=== PATIENT | female | born 1985 | race American Indian/Alaskan Native ===

== ENCOUNTER 2017-06-20 16:28 | Observation (INO) | payer MEDICAID, OTHER ==
[2017-06-20 18:37] VITALS: BP 112/72
--- NOTE | 2017-06-20 19:36 | PCM.LDHP ---
L&D History of Present Illness - General Date of Service: 06/20/17 Admit Problem/Dx: Admission Diagnosis/Problem Admission Diagnosis/Problem Back pain during in second trimester Source of Information: Patient History Limitations: Reports: No Limitations - History of Present Illness Introduction:: This 31 year old AB2 with one vaginal delivery and two C sections. Who is 16 3/7 weeks based on ultrasound tonight. SANJUANA 11/30/17 presented for vaginal bleeding. She states she was soaking a pad an hour. FHT 171 FH 20. Blood with speculum exam. 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: , 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 : 6 Para: 3 LMP (Approximate): (SANJUANA 11 30 17) - Past Surgical History GI Surgical History: Reports: Cholecystectomy Female Surgical History: Reports: Section Social & Family History - Tobacco Use Smoking Status *Q: Current Every Day Smoker Tobacco Use Within Last Twelve Months: Cigarettes Years of Tobacco use: 10 Packs/Tins Daily: 1 Used Tobacco, but Quit: No Smoking Cessation Information Provided To Patient: Patient Refused Second Hand Smoke Exposure: Yes - Caffeine Use Caffeine Use: Reports: None - Alcohol Use Days Per Week of Alcohol Use: 0 - Recreational Drug Use Recreational Drug Use: Yes Drug Use in Last 12 Months: Yes Recreational Drug Type: Reports: Amphetamines (Speed), Codiene, Marijuana/ Hashish, Methamphetamine, Oxycodone H&P Review of Systems - Review of Systems: Review Of Systems: See Below General: Reports: No Symptoms HEENT: Reports: No Symptoms Pulmonary: Reports: No Symptoms Cardiovascular: Reports: No Symptoms Gastrointestinal: Reports: No Symptoms Genitourinary: Reports: No Symptoms Musculoskeletal: Reports: Back Pain Skin: Reports: No Symptoms Psychiatric: Reports: No Symptoms Neurological: Reports: No Symptoms Hematologic/Lymphatic: Reports: No Symptoms Immunologic: Reports: No Symptoms L&D Exam - Exam Exam: See Below - Vital Signs Vital Signs: Last Vital Signs Temp 99.2 F 06/20/17 18:35 Pulse 84 06/20/17 18:35 Resp 18 06/20/17 18:35 BP 112/72 06/20/17 18:35 Pulse Ox 99 06/20/17 18:35 Weight: 159 lb - OB Specific Heart Tones: Present Heart Tones per Min: 171 - Underwood Score Underwood Score Cervix Position: Posterior Underwood Score Consistency: Firm Underwood Score Effacement: 0-30% Underwood Score Dilation: Closed Underwood Score 's Station: -3 Underwood Score Total: 0 - Exam General: Alert, Oriented HEENT: PERRLA, Conjunctiva Clear Neck: Supple Lungs: Normal Respiratory Effort Cardiovascular: Regular Rhythm GI/Abdominal Exam: Soft Genitourinary: Enlarged uterus, Vaginal bleeding Back Exam: Full Range of Motion Extremities: Normal Inspection, No Pedal Edema Skin: Warm Neurological: Cranial Nerves Intact Psychiatric: Alert - Patient Data Lab Results Last 24 hrs: Laboratory Results - last 24 hr 06/20/17 06/20/17 06/20/17 Range/Units 16:44 17:27 17:27 WBC 9.6 (4.5-11.0) K/uL RBC 4.49 (3.30-5.50) M/uL Hgb 8.9 L D (12.0-15.0) g/dL Hct 29.3 L (36.0-48.0) % MCV 65 L (80-98) fL MCH 20 L (27-31) pg MCHC 30 L (32-36) % Plt Count 276 (150-400) K/uL Neut % (Auto) 64 (36-66) % Lymph % (Auto) 29 (24-44) % Esmeralda % (Auto) 7 H (2-6) % Eos % (Auto) 1 L (2-4) % Baso % (Auto) 0 (0-1) % HCG, Quant 26509 H (0-6) mIU/mL Urine Color Yellow Urine Appearance Clear Urine pH 6.0 (4.5-8.0) Ur Specific Wisner 1.020 (1.008-1.030) Urine Protein Negative (NEGATIVE) mg/dL Urine Glucose (UA) Normal (NEGATIVE) mg/dL Urine Ketones Negative (NEGATIVE) mg/dL Urine Occult Blood Moderate (NEGATIVE) Urine Nitrite Negative (NEGATIVE) Urine Bilirubin Negative (NEGATIVE) Urine Urobilinogen Normal (NORMAL) mg/dL Ur Leukocyte Esterase Negative (NEGATIVE) Urine RBC 5-10 H (0-5) Urine WBC 0-5 (0-5) Ur Epithelial Cells Few Amorphous Sediment Few Urine Bacteria Rare Urine Mucus Moderate Urine Opiates Screen (NEGATIVE) Ur Oxycodone Screen (NEGATIVE) Urine Methadone Screen (NEGATIVE) Ur Propoxyphene Screen (NEGATIVE) Ur Barbiturates Screen (NEGATIVE) Ur Tricyclics Screen (NEGATIVE) Ur Phencyclidine Scrn (NEGATIVE) Ur Amphetamine Screen (NEGATIVE) U Methamphetamines Scrn (NEGATIVE) Urine MDMA Screen (NEGATIVE) U Benzodiazepines Scrn (NEGATIVE) U Cocaine Metab Screen (NEGATIVE) U Marijuana (THC) Screen (NEGATIVE) 06/20/17 Range/Units 18:04 WBC (4.5-11.0) K/uL RBC (3.30-5.50) M/uL Hgb (12.0-15.0) g/dL Hct (36.0-48.0) % MCV (80-98) fL MCH (27-31) pg MCHC (32-36) % Plt Count (150-400) K/uL Neut % (Auto) (36-66) % Lymph % (Auto) (24-44) % Esmeralda % (Auto) (2-6) % Eos % (Auto) (2-4) % Baso % (Auto) (0-1) % HCG, Quant (0-6) mIU/mL Urine Color Urine Appearance Urine pH (4.5-8.0) Ur Specific Wisner (1.008-1.030) Urine Protein (NEGATIVE) mg/dL Urine Glucose (UA) (NEGATIVE) mg/dL Urine Ketones (NEGATIVE) mg/dL Urine Occult Blood (NEGATIVE) Urine Nitrite (NEGATIVE) Urine Bilirubin (NEGATIVE) Urine Urobilinogen (NORMAL) mg/dL Ur Leukocyte Esterase (NEGATIVE) Urine RBC (0-5) Urine WBC (0-5) Ur Epithelial Cells Amorphous Sediment Urine Bacteria Urine Mucus Urine Opiates Screen Positive H (NEGATIVE) Ur Oxycodone Screen Positive H (NEGATIVE) Urine Methadone Screen Negative (NEGATIVE) Ur Propoxyphene Screen Negative (NEGATIVE) Ur Barbiturates Screen Negative (NEGATIVE) Ur Tricyclics Screen Negative (NEGATIVE) Ur Phencyclidine Scrn Negative (NEGATIVE) Ur Amphetamine Screen Positive H (NEGATIVE) U Methamphetamines Scrn Positive H (NEGATIVE) Urine MDMA Screen Negative (NEGATIVE) U Benzodiazepines Scrn Negative (NEGATIVE) U Cocaine Metab Screen Negative (NEGATIVE) U Marijuana (THC) Screen Positive H (NEGATIVE) Result Diagrams: 06/20/17 17:27 - Problem List (1) Drug abuse during SNOMED Code(s): 048923444 ICD Code: O99.320 - DRUG USE COMPLICATING , UNSPECIFIED TRIMESTER; F19.10 - OTHER PSYCHOACTIVE SUBSTANCE ABUSE, UNCOMPLICATED Status: Acute Current Visit: Yes (2) Placenta abruptio, antepartum SNOMED Code(s): 729946190 ICD Code: O45.90 - PREMATURE SEPARATION OF PLACENTA, UNSP, UNSP TRIMESTER Status: Acute Current Visit: Yes (3) Anemia affecting in second trimester SNOMED Code(s): 97343073 ICD Code: O99.012 - ANEMIA COMPLICATING , SECOND TRIMESTER Status : Acute Current Visit: Yes (4) Threatened in second trimester SNOMED Code(s): 79529369 ICD Code: O20.0 - THREATENED Status: Acute Current Visit: Yes (5) SNOMED Code(s): 12685887 ICD Code: Z34.90 - ENCNTR FOR SUPRVSN OF NORMAL , UNSP, UNSP TRIMESTER Status: Acute Current Visit: Yes Qualifiers: Weeks of gestation: 16 weeks Qualified Code(s): Z3A.16 - 16 weeks gestation of Problem List Initiated/Reviewed/Updated: Yes Orders Last 24hrs: Active Orders 24 hr Category Date Time Status OB 2 Or 3 Tri Sgl 1st Gest [US] Routine Exams 06/20/17 17:24 Ordered CHLAMYDIA,AND GC BY APTIMA Routine Lab 06/20/17 18:47 Received HEPATITIS B SURFACE ANTIGEN [REF] Routine Lab 06/20/17 18:08 Received HEPATITIS C ANTIBODY [REF] Routine Lab 06/20/17 18:08 Received RPR-TREP PALLIDIUM AB,REFLEX [REF] Routine Lab 06/20/17 18:08 Received RUBELLA,ANTIBODY IGG [REF] Routine Lab 06/20/17 18:08 Received TYPE AND SCREEN [BBK] Routine Lab 06/20/17 17:27 Ordered Assessment/Plan Comment:: 31 yr old with placental hematoma on ultrasound with bleeding into the cervical OS. Threatened miscarriage with high risk for bleeding, Anemia HGB 8.9 No care, will try to set up an appointment for her. Smoker, offered patches she declined. Plan was to keep her overnight and monitor for increased symptoms. She refused to stay and not smoke. Is going to leave AMA despite our attempts to encourage her to stay.
== END 2017-06-20 19:30 | disposition left against medical advice (07) ==
LOC: JP.OBCHECK 16:28 → JP.OB 19:10
PROVIDERS: ADMIT Nurse Practitioner Family; ATTEND Nurse Practitioner Family
DX: O45.92 Premature separation of placenta, unspecified, second trimester (principal); O20.0 Threatened abortion; O26.892 Other specified pregnancy related conditions, second trimester; M54.5 Low back pain; O99.332 Smoking (tobacco) complicating pregnancy, second trimester; F17.210 Nicotine dependence, cigarettes, uncomplicated; O99.322 Drug use complicating pregnancy, second trimester; O99.012 Anemia complicating pregnancy, second trimester; O32.1XX0 Maternal care for breech presentation, not applicable or unspecified; O24.419 Gestational diabetes mellitus in pregnancy, unspecified control; Z53.21 Procedure and treatment not carried out due to patient leaving prior to being seen by health care provider; Z3A.16 16 weeks gestation of pregnancy; Z87.19 Personal history of other diseases of the digestive system; Z79.899 Other long term (current) drug therapy; Z90.49 Acquired absence of other specified parts of digestive tract
CPT/HCPCS: 36415; 76805; 80305; 81001; 84702; 85025; 86762; 86780; 86803; 86850; 86900; 86901; 87340; 87491; 87591; 99211

== ENCOUNTER 2018-08-13 14:41 | Emergency (ER) | payer SELFPAY ==
[2018-08-13 14:45] VITALS: BP 134/88
--- NOTE | 2018-08-13 15:21 | EDM.PDOCBH ---
<Kourtney Gilbert M - Last Filed: 08/14/18 11:13> ED HPI GENERAL MEDICAL PROBLEM - General Chief Complaint: Behavioral/Psych Stated Complaint: SUICIDAL VIA [facility]TH Time Seen by Provider: 08/13/18 15:05 Source of Information: Reports: Patient History Limitations: Reports: No Limitations - History of Present Illness INITIAL COMMENTS - FREE TEXT/NARRATIVE: Sanam was brought in by police and EMS after being called to home by father of patient who received text stating she was saying goodbye as she going to hurt herself. Upon arrival, father found patient in bathroom with bottle of pills in hand. When police tried to restrain patient, she had an outburst and struck out and hit the wall injuring her hand. She presented to the ED handcuffed to the cart. Interviewed by senior staff consultant and ED providers. Patient cooperative to the point of eliminating restraints for treatment - as states "I just didn't want the police touching me, you guys are OK." Onset: Today Location: Reports: Lower Extremity, Right (complains of pain along ulnar region near wrist and 5th metacarpal) - Related Data Allergies Allergy/AdvReac Type Severity Reaction Status Date / Time No Known Allergies Allergy Verified 08/13/18 14:46 Home Meds: Home Meds NK [No Known Home Meds] 08/13/18 [History] Past Medical History - Past Health History Medical/Surgical History: Denies Medical/Surgical History Gastrointestinal History: Reports: Cholelithiasis 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: , 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 - Past Surgical History GI Surgical History: Reports: Cholecystectomy Female Surgical History: Reports: Section Social & Family History - Tobacco Use Smoking Status *Q: Current Every Day Smoker Years of Tobacco use: 15 Packs/Tins Daily: 1 - Caffeine Use Caffeine Use: Reports: None - Recreational Drug Use Recreational Drug Use: Yes Drug Use in Last 12 Months: Yes Recreational Drug Type: Reports: Methamphetamine ED EXAM, BEHAVIORAL HEALTH - Physical Exam Exam: See Below General Appearance: Alert, WD/WN, No Apparent Distress (sitting in cart, very compliant and willing to discuss history) Ears: Hearing Grossly Normal Respiratory/Chest: No Respiratory Distress Psychiatric: Alert, Normal Affect, Normal Cognition, Oriented, Tearful (Admits writing text to father stating 'I want to end it my own way'. Father alerted police and went to house to find patient in room with bag of pills in hand. Denies taking any; stated they were Motrin she was going to take for headache, but she did not taking any. ) Skin Exam: Warm, Dry, Intact, Normal color, No rash Comments: During course of time in ED, every verbal encounter with patient proved she was lucid, appropriate and had no desires to hurt herself. She stated she was deperate feeling after meth use at the thought of her children being adopted out. She states she doesn't have a lot of friends to talk to about this. Reviewed support system and determined patient feels closest to father. She will reach out to father for ongoing support. I feel this patient is not a threat to self or others if can utilize her support system. She will have a conversation with her father today after discharge. Patient was given food tray and nicotine patch during ED stay. COURSE, BEHAVIORAL HEALTH COMP - Course Vital Signs: Last Vital Signs Temp 35.7 C 08/13/18 14:55 Pulse 89 08/13/18 14:55 Resp 22 H 08/13/18 14:55 BP 134/88 08/13/18 14:55 Pulse Ox 98 08/13/18 14:55 Orders, Labs, Meds: Active Orders 24 hr Category Date Time Status Smoking Cessation Education [RC] DAILY Care 08/13/18 15:28 Active Medications Discontinued Medications Generic Name Dose Route Start Last Admin Trade Name Alexei PRN Reason Stop Dose Admin Nicotine 21 mg 08/13/18 15:28 08/13/18 15:45 Habitrol TRDERM 08/13/18 15:29 21 mg ONETIME ONE Administration Discharge vs Psych Eval/Treatment:: 08/13/18 15:33 Long discussion with patient about her text to her father. [place] yesterday that her children would be adopted out, when she thought she might regain custody. This sent her into a big depression and she admits to using smoking meth "a quad ". She admits to sending her father a text "saying goodbye". When father showed up at her house she said she did have meds in a baggie but she was wanting to take them for a headache. She states she did not take anything. She became agitated when the police/EMS touched her and she punched a wall out of frustration. Presently she denies wanting to hurt self. She asks for a meal tray. She is waiting for x-ray for wrist and hand films. Nicoderm patch ordered. Departure - Departure Disposition: Home, Self-Care 01 Clinical Impression: Wrist pain, left - Discharge Information Instructions: Wrist Pain, Adult, [id number] Referrals: PCP,None [Primary Care Provider] - Forms: ED Department Discharge Additional Instructions: Please follow up with the orthopedic clinic for persistent pain. Return to the ER if you feel dangerous to yourself or others <Adrián Darden - Last Filed: 08/14/18 11:56> ED ROS GENERAL - Review of Systems Review Of Systems: See Below COURSE, BEHAVIORAL HEALTH COMP - Course Re-Assessment/Re-Exam: Patient seen with student CR Gilbert. Presents with R hand pain after striking wall. She reportedly had SI, currently denies this or any ingestions, reports it was a reaction to receiving distressing news. There is distal wrist pain on exam and questionable fracture here on plain film , we have placed here in split and she will follow up with orthopedics She is no longer danger to self or others. Has support system, father will warehouse picker from ED. Discharged Departure - Departure Time of Disposition: 17:35
[2018-08-13] MEDS ORDERED: Nicotine 21 MG/24 Hr Patch TRDERM ONE (15:28)
--- NOTE | 2018-08-13 16:37 | CRLCR ---
HISTORY: Pain after injury. FINDINGS: Two views of the hands are provided. On the lateral view there is a slight curvilinear focus of bone or mineralized material seen along the dorsum of the distal wrist region. This is of uncertain significance. If there is point tenderness in this region there could be a subtle chip type fracture. This does not occur in the region of the navicular bone. Otherwise there is no evidence for fracture elsewhere. No findings for dislocation or arthritic change. IMPRESSION: Question of small chip fracture off the dorsum of the wrist versus artifact or normal variation. Please correlate with point tenderness in this region. No navicular fracture is noted. Dictated by Reno Greer MD @ Aug 13 2018 4:32PM Signed by Dr. Reno Greer @ Aug 13 2018 4:35PM
--- NOTE | 2018-08-13 16:39 | CRLCR ---
HISTORY: Smiled box tenderness after punching wall. FINDINGS: Three views of the right wrist are provided. No definite findings for fracture, dislocation or arthritic change. Dictated by Reno Greer MD @ Aug 13 2018 4:36PM Signed by Dr. Reno Greer @ Aug 13 2018 4:37PM
== END 2018-08-13 18:09 | disposition home or self-care (01) ==
LOC: JP.ED 14:41
DX: M25.531 Pain in right wrist (principal); M79.641 Pain in right hand; W22.8XXA Striking against or struck by other objects, initial encounter
CPT/HCPCS: 73110; 73120; 99285; A9270

== ENCOUNTER 2019-01-16 21:52 | Emergency (ER) | payer MEDICAID ==
[2019-01-16 22:11] VITALS: BP 145/82
--- NOTE | 2019-01-16 22:51 | EDM.PDOC ---
ED HPI GENERAL MEDICAL PROBLEM - General Chief Complaint: ENT Problem Stated Complaint: BAD TEETH Time Seen by Provider: 01/16/19 22:27 Source of Information: Reports: Patient History Limitations: Reports: No Limitations - History of Present Illness INITIAL COMMENTS - FREE TEXT/NARRATIVE: 33-year-old female with a history of multiple dental caries presents to the emergency department with facial swelling and discomfort. She has seen a dentist and treatment was outlined however treatment was interrupted because this patient's mother's recently. She has had swelling for the past day. Is quite painful. She denies systemic symptoms such as fever. She has difficulty eating because of pain but has no difficulty swallowing. She is not immunocompromised. 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 Psychiatric History: Reports: Anxiety, Depression - Past Surgical History GI Surgical History: Reports: Cholecystectomy Female Surgical History: Reports: Section Social & Family History - Family History Family Medical History: Noncontributory - Tobacco Use Smoking Status *Q: Current Every Day Smoker Years of Tobacco use: 12 Packs/Tins Daily: 0.5 Used Tobacco, but Quit: No - Caffeine Use Caffeine Use: Reports: None - Recreational Drug Use Recreational Drug Use: No ED ROS ENT - Review of Systems Review Of Systems: See Below Constitutional: Denies: Fever, Chills, Diaphoresis HEENT: Reports: Dental Pain, Other (right facial swelling) Respiratory: Reports: No Symptoms Cardiovascular: Reports: No Symptoms GI/Abdominal: Denies: Nausea, Vomiting ED EXAM, ENT - Physical Exam Exam: See Below Exam Limited By: No Limitations General Appearance: Alert, WD/WN, No Apparent Distress Mouth/Throat: Other (there is swelling over the right malar area. It is mildly red. Palpation of the oropharynx is unremarkable other than multiple dental caries and tooth avulsion. ) Neck: Normal Inspection. No: Lymphadenopathy (R), Lymphadenopathy (L) Respiratory/Chest: No Respiratory Distress, Lungs Clear Course - Vital Signs Last Recorded V/S: Last Vital Signs Temp 36.6 C 01/16/19 22:24 Pulse 81 01/16/19 22:24 Resp 16 01/16/19 22:24 BP 145/82 H 01/16/19 22:24 Pulse Ox 99 01/16/19 22:24 - Re-Assessments/Exams Free Text/Narrative Re-Assessment/Exam: 01/16/19 22:59 the patient was assessed. She has a obvious abscess with the swelling over the right side of the face and multiple dental problems. She is placed on amoxicillin 500 mg 3 times a day 10 days and given 4 tablets of [place] 5/325 mg one or 2 tablets every 6 hours as needed.She will contact her dentist tomorrow. Return here as needed. Departure - Departure Time of Disposition: 22:50 Disposition: Home, Self-Care 01 Condition: Good Clinical Impression: Abscess, Dental abscess - Discharge Information Instructions: Dental Abscess Referrals: PCP,None [Primary Care Provider] - Forms: ED Department Discharge Additional Instructions: Follow up with your dentist tomorrow.
== END 2019-01-16 23:24 | disposition home or self-care (01) ==
LOC: JP.ED 21:52
DX: K04.7 Periapical abscess without sinus (principal); K02.9 Dental caries, unspecified; F17.210 Nicotine dependence, cigarettes, uncomplicated
CPT/HCPCS: 99282

== ENCOUNTER 2019-04-28 07:27 | Inpatient (IN) | payer MEDICAID ==
[2019-04-28] MEDS ORDERED: Lactated Ringers 1,000 ML IV ONE (08:16)
[2019-04-28] MEDS ORDERED: Lactated Ringers 1,000 ML IV SCH (09:30)
--- NOTE | 2019-04-28 10:03 | CRLUS ---
INDICATION: Limited care COMPARISON: none TECHNIQUE: Real time flores scale imaging of the fetus was performed. Without non-stress testing. FINDINGS: Sonographic imaging demonstrates a single living intrauterine gestation. Fetus demonstrates a regular cardiac rate of 170 beats per minute. Fetus has a cephalic orientation. The amniotic fluid volume appears normal and there is a four-quadrant fluid volume index measurement of 11.7 cm. The fetus was active and demonstrated normal breathing movements. There was normal flexion and extension of the trunk and extremities. IMPRESSION: Biophysical profile score of 8 out of 8. Dictated by Eric Lanza MD @ 04/28/2019 10:01:45 AM Dictated by: Eric Lanza MD @ 04/28/2019 10:01:53 (Electronically Signed)
--- NOTE | 2019-04-28 10:08 | CRLUS ---
INDICATION: Limited care. COMPARISON: none TECHNIQUE: 2D flores scale imaging of the fetus was performed. FINDINGS: Sonographic imaging demonstrates a single living intrauterine gestation. Fetus demonstrates a regular cardiac rate of 170 beats per minute. Fetus has a cephalic orientation and longitudinal lie. The placenta lies in a fundal location without evidence of placenta previa. Amniotic fluid volume appears normal with a 4 quadrant fluid volume index measurement of 11.7 cm. The cervix is closed and measures 3.8 cm in length. The composite ultrasound gestational age is calculated at 35 weeks 4 days with an estimated sonographic due date of 05/29/2019. The estimated weight is 2673 grams which lies at the 60th %. The following biometric measurements were obtained: Biparietal diameter: 8.8 cm/35 weeks 4 days Head circumference: 31.5 cm/35 weeks 3 days Abdominal circumference: 31.6 cm/35 weeks 4 days Femur length: 6.9 cm/35 weeks 2 days The HC/AC ratio measures: 1.00 range (0.93-1.11) Given the low lying position of the head there is inadequate visualization of the intracranial contents. The nose, mouth and lips appear normal on coronal images. On the midline sagittal facial profile view the nasal bones and hard palate appear normal. The cervical, thoracic and lumbar spine appear normal. There is a normal four-chamber heart view. The left and right ventricular outflow tracts appear normal. The diaphragm and stomach appear normal. The kidneys appear normal. There is a normal three-vessel cord. The and placental cord insertion sites appear normal. The bladder appears normal. The four extremities appear normal. IMPRESSION: Sonographic gestational age calculated at 35 weeks 4 days with estimated due date of 05/29/2019 No intrinsic abnormalities noted on anatomic survey. Dictated by Eric Lanza MD @ 04/28/2019 10:07:13 AM Dictated by: Eric Lanza MD @ 04/28/2019 10:07:21 (Electronically Signed)
[2019-04-28] MEDS ORDERED: Sodium Chloride 0.9% 10 ML Syringe FLUSH PRN (11:07)
[2019-04-28] MEDS ORDERED: Oxytocin 10 Units/1 ML SDV ONE ×2 (11:07→12:10)
[2019-04-28] MEDS ORDERED: cefOXitin 1 GM Vial ONE (11:07)
--- NOTE | 2019-04-28 11:17 | PCM.LDHP ---
L&D History of Present Illness - General Date of Service: 04/28/19 Admit Problem/Dx: Patient Status Order with Admit Dx/Problem 04/28/19 11:07 Patient Status [ADT] Routine Admission Diagnosis/Problem Admission Diagnosis/Problem - Related Data Allergies/Adverse Reactions: Allergies Allergy/AdvReac Type Severity Reaction Status Date / Time No Known Allergies Allergy Verified 01/16/19 22:25 Home Medications: Home Meds Iron,Carbonyl/Vit C/Vit B12/Fa [Iron 100 Plus Tablet] 1 tab PO TID 01/16/19 [ History] Past Medical History - Past Health History Medical/Surgical History: Denies Medical/Surgical History HEENT History: Reports: None Cardiovascular History: Reports: None Respiratory History: Reports: None Gastrointestinal History: Reports: Cholelithiasis Genitourinary History: Reports: None 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: , 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 Musculoskeletal History: Reports: None Neurological History: Reports: None Psychiatric History: Reports: Anxiety, Depression Endocrine/Metabolic History: Reports: None Hematologic History: Reports: None Immunologic History: Reports: None Oncologic (Cancer) History: Reports: None Dermatologic History: Reports: None - Infectious Disease History Infectious Disease History: Reports: None - Past Surgical History Head Surgeries/Procedures: Reports: None HEENT Surgical History: Reports: None Cardiovascular Surgical History: Reports: None Respiratory Surgical History: Reports: None GI Surgical History: Reports: Cholecystectomy Female Surgical History: Reports: Section Endocrine Surgical History: Reports: None Neurological Surgical History: Reports: None Musculoskeletal Surgical History: Reports: None Oncologic Surgical History: Reports: None Dermatological Surgical History: Reports: None Social & Family History - Family History Family Medical History: Noncontributory - Tobacco Use Smoking Status *Q: Current Every Day Smoker Years of Tobacco use: 14 Packs/Tins Daily: 1 - Caffeine Use Caffeine Use: Reports: Soda - Recreational Drug Use Recreational Drug Use: Yes Drug Use in Last 12 Months: Yes Recreational Drug Type: Reports: Marijuana/Hashish Recreational Drug Use Frequency: Socially H&P Review of Systems - Review of Systems: Review Of Systems: See Below General: Reports: No Symptoms HEENT: Reports: No Symptoms Pulmonary: Reports: No Symptoms Cardiovascular: Reports: No Symptoms Gastrointestinal: Reports: No Symptoms Genitourinary: Reports: No Symptoms Musculoskeletal: Reports: No Symptoms Skin: Reports: No Symptoms Psychiatric: Reports: No Symptoms Neurological: Reports: No Symptoms Hematologic/Lymphatic: Reports: No Symptoms Immunologic: Reports: No Symptoms L&D Exam - Exam Exam: See Below - Vital Signs Vital Signs: Last Vital Signs Temp 36.5 C 04/28/19 07:37 Pulse 85 04/28/19 10:00 Resp 16 04/28/19 10:00 BP 135/91 H 04/28/19 10:57 Pulse Ox 95 04/28/19 10:00 - OB Specific Contraction Duration (sec): 30-80 Contraction Frequency (min): 2-7 Contraction Intensity: Mild Movement: Active Heart Tones: Present Heart Rate (FHR) Variability: Moderate (6-25 bmp) Presentation: Vertex - Underwood Score Underwood Score Cervix Position: Midposition Underwood Score Consistency: Soft [place] Score Effacement: 51-70% Underwood Score Dilation: 1-2 cm Underwood Score Infant's Station: -1 ,0 Underwood Score Total: 8 - Exam General: Alert, Oriented HEENT: PERRLA, Conjunctiva Clear, EACs Clear, EOMI, Hearing Intact, Mucosa Moist & [place], Nares Patent, Normal Nasal Septum, Posterior Pharynx Clear, TMs Clear Neck: Supple, Trachea Midline Lungs: Clear to Auscultation, Normal Respiratory Effort Cardiovascular: Regular Rate, Regular Rhythm GI/Abdominal Exam: Normal Bowel Sounds, Soft, Non-Tender, No Organomegaly, No Distention, No Abnormal Bruit, No Mass, Pelvis Stable Rectal Exam: Normal Exam, Normal Rectal Tone Genitourinary: Normal external exam, Normal bimanual exam, Normal speculum exam Back Exam: Normal Inspection, Full Range of Motion Extremities: Normal Inspection, Normal Range of Motion, Non-Tender, No Pedal Edema, Normal Capillary Refill Skin: Warm, Dry, Intact Neurological: Cranial Nerves Intact, Reflexes Equal Bilateral, Hyperreflexia DTR: 3+: Patella (L), Patella (R) Psychiatric: Alert, Normal Affect, Normal Mood - Patient Data Lab Results Last 24 hrs: Laboratory Results - last 24 hr 04/28/19 04/28/19 04/28/19 Range/Units 07:32 08:37 08:47 WBC (4.5-11.0) K/uL RBC (3.30-5.50) M/uL Hgb (12.0-15.0) g/dL Hct (36.0-48.0) % MCV (80-98) fL MCH (27-31) pg MCHC (32-36) % Plt Count (150-400) K/uL Neut % (Auto) (36-66) % Lymph % (Auto) (24-44) % [place] % (Auto) (2-6) % Eos % (Auto) (2-4) % Baso % (Auto) (0-1) % Sodium (140-148) mmol/L Potassium (3.6-5.2) mmol/L Chloride (100-108) mmol/L Carbon Dioxide (21-32) mmol/L Anion Gap (5.0-14.0) mmol/L BUN (7-18) mg/dL Creatinine (0.6-1.0) mg/dL Est Cr Clr Drug Dosing Estimated GFR (MDRD) (>60) Glucose (74-106) mg/dL Uric Acid 4.7 (2.6-6.2) mg/dL Calcium (8.5-10.1) mg/dL Total Bilirubin (0.2-1.0) mg/dL AST (15-37) U/L ALT (12-78) U/L Alkaline Phosphatase (46-116) U/L Lactate Dehydrogenase (82-234) U/L Total Protein (6.4-8.2) g/dL Albumin (3.4-5.0) g/dL Globulin (2.3-3.5) g/dL Albumin/Globulin Ratio (1.2-2.2) Urine Color Yellow (YELLOW) Urine Appearance Slightly cloudy A (CLEAR) Urine pH 6.0 (5.0-8.0) Ur Specific [place] 1.015 (1.008-1.030) Urine Protein Negative (NEGATIVE) mg/dL Urine Glucose (UA) Negative (NEGATIVE) mg/dL Urine Ketones Negative (NEGATIVE) mg/dL Urine Occult Blood Negative (NEGATIVE) Urine Nitrite Negative (NEGATIVE) Urine Bilirubin Negative (NEGATIVE) Urine Urobilinogen 0.2 (0.2-1.0) EU/dL Ur Leukocyte Esterase Small H (NEGATIVE) Urine RBC 0-5 (0-5) Urine WBC 20-30 H (0-5) Ur Epithelial Cells Many Amorphous Sediment Not seen Urine Bacteria Many Urine Mucus Few Urine Other Ur Random Creatinine (20.0-370.0) mg/dL U Random Total Protein (6.0-11.9) mg/dL Protein/Creatinin Ratio (21.0-161.0) mg/g Membrane Rupture (NEGATIVE) Urine Opiates Screen Negative (NEGATIVE) Ur Oxycodone Screen Negative (NEGATIVE) Urine Methadone Screen Negative (NEGATIVE) Ur Propoxyphene Screen Negative (NEGATIVE) Ur Barbiturates Screen Negative (NEGATIVE) Ur Tricyclics Screen Negative (NEGATIVE) Ur Phencyclidine Scrn Negative (NEGATIVE) Ur Amphetamine Screen Negative (NEGATIVE) U Methamphetamines Scrn Presumptive positive H (NEGATIVE) Urine MDMA Screen Negative (NEGATIVE) U Benzodiazepines Scrn Negative (NEGATIVE) U Cocaine Metab Screen Negative (NEGATIVE) U Marijuana (THC) Screen Negative (NEGATIVE) HIV-1 Ab Rapid Screen (NON-REACT.) 04/28/19 04/28/19 04/28/19 Range/Units 08:47 09:51 10:00 WBC (4.5-11.0) K/uL RBC (3.30-5.50) M/uL Hgb (12.0-15.0) g/dL Hct (36.0-48.0) % MCV (80-98) fL MCH (27-31) pg MCHC (32-36) % Plt Count (150-400) K/uL Neut % (Auto) (36-66) % Lymph % (Auto) (24-44) % [place] % (Auto) (2-6) % Eos % (Auto) (2-4) % Baso % (Auto) (0-1) % Sodium (140-148) mmol/L Potassium (3.6-5.2) mmol/L Chloride (100-108) mmol/L Carbon Dioxide (21-32) mmol/L Anion Gap (5.0-14.0) mmol/L BUN (7-18) mg/dL Creatinine (0.6-1.0) mg/dL Est Cr Clr Drug Dosing Estimated GFR (MDRD) (>60) Glucose (74-106) mg/dL Uric Acid (2.6-6.2) mg/dL Calcium (8.5-10.1) mg/dL Total Bilirubin (0.2-1.0) mg/dL AST (15-37) U/L ALT (12-78) U/L Alkaline Phosphatase (46-116) U/L Lactate Dehydrogenase (82-234) U/L Total Protein (6.4-8.2) g/dL Albumin (3.4-5.0) g/dL Globulin (2.3-3.5) g/dL Albumin/Globulin Ratio (1.2-2.2) Urine Color (YELLOW) Urine Appearance (CLEAR) Urine pH (5.0-8.0) Ur Specific [place] (1.008-1.030) Urine Protein (NEGATIVE) mg/dL Urine Glucose (UA) (NEGATIVE) mg/dL Urine Ketones (NEGATIVE) mg/dL Urine Occult Blood (NEGATIVE) Urine Nitrite (NEGATIVE) Urine Bilirubin (NEGATIVE) Urine Urobilinogen (0.2-1.0) EU/dL Ur Leukocyte Esterase (NEGATIVE) Urine RBC (0-5) Urine WBC (0-5) Ur Epithelial Cells Amorphous Sediment Urine Bacteria Urine Mucus Urine Other Ur Random Creatinine 43.2 (20.0-370.0) mg/dL U Random Total Protein 12.3 H (6.0-11.9) mg/dL Protein/Creatinin Ratio 284.7 H (21.0-161.0) mg/g Membrane Rupture Negative (NEGATIVE) Urine Opiates Screen (NEGATIVE) Ur Oxycodone Screen (NEGATIVE) Urine Methadone Screen (NEGATIVE) Ur Propoxyphene Screen (NEGATIVE) Ur Barbiturates Screen (NEGATIVE) Ur Tricyclics Screen (NEGATIVE) Ur Phencyclidine Scrn (NEGATIVE) Ur Amphetamine Screen (NEGATIVE) U Methamphetamines Scrn (NEGATIVE) Urine MDMA Screen (NEGATIVE) U Benzodiazepines Scrn (NEGATIVE) U Cocaine Metab Screen (NEGATIVE) U Marijuana (THC) Screen (NEGATIVE) HIV-1 Ab Rapid Screen Non-reactive (NON-REACT.) 04/28/19 04/28/19 Range/Units 10:00 10:00 WBC 7.7 (4.5-11.0) K/uL RBC 4.69 (3.30-5.50) M/uL Hgb 8.5 L (12.0-15.0) g/dL Hct 30.0 L (36.0-48.0) % MCV 64 L (80-98) fL MCH 18 L (27-31) pg MCHC 28 L (32-36) % Plt Count 342 (150-400) K/uL Neut % (Auto) 61 (36-66) % Lymph % (Auto) 35 (24-44) % [place] % (Auto) 3 (2-6) % Eos % (Auto) 1 L (2-4) % Baso % (Auto) 0 (0-1) % Sodium 135 L (140-148) mmol/L Potassium 4.2 (3.6-5.2) mmol/L Chloride 103 (100-108) mmol/L Carbon Dioxide 21 (21-32) mmol/L Anion Gap 15.2 H (5.0-14.0) mmol/L BUN 7 (7-18) mg/dL Creatinine 0.6 (0.6-1.0) mg/dL Est Cr Clr Drug Dosing TNP Estimated GFR (MDRD) > 60 (>60) Glucose 76 (74-106) mg/dL Uric Acid (2.6-6.2) mg/dL Calcium 7.9 L (8.5-10.1) mg/dL Total Bilirubin 0.1 L D (0.2-1.0) mg/dL AST 10 L D (15-37) U/L ALT 9 L (12-78) U/L Alkaline Phosphatase 174 H (46-116) U/L Lactate Dehydrogenase 106 (82-234) U/L Total Protein 6.4 (6.4-8.2) g/dL Albumin 2.0 L (3.4-5.0) g/dL Globulin 4.4 H (2.3-3.5) g/dL Albumin/Globulin Ratio 0.5 L (1.2-2.2) Urine Color (YELLOW) Urine Appearance (CLEAR) Urine pH (5.0-8.0) Ur Specific [place] (1.008-1.030) Urine Protein (NEGATIVE) mg/dL Urine Glucose (UA) (NEGATIVE) mg/dL Urine Ketones (NEGATIVE) mg/dL Urine Occult Blood (NEGATIVE) Urine Nitrite (NEGATIVE) Urine Bilirubin (NEGATIVE) Urine Urobilinogen (0.2-1.0) EU/dL Ur Leukocyte Esterase (NEGATIVE) Urine RBC (0-5) Urine WBC (0-5) Ur Epithelial Cells Amorphous Sediment Urine Bacteria Urine Mucus Urine Other Ur Random Creatinine (20.0-370.0) mg/dL U Random Total Protein (6.0-11.9) mg/dL Protein/Creatinin Ratio (21.0-161.0) mg/g Membrane Rupture (NEGATIVE) Urine Opiates Screen (NEGATIVE) Ur Oxycodone Screen (NEGATIVE) Urine Methadone Screen (NEGATIVE) Ur Propoxyphene Screen (NEGATIVE) Ur Barbiturates Screen (NEGATIVE) Ur Tricyclics Screen (NEGATIVE) Ur Phencyclidine Scrn (NEGATIVE) Ur Amphetamine Screen (NEGATIVE) U Methamphetamines Scrn (NEGATIVE) Urine MDMA Screen (NEGATIVE) U Benzodiazepines Scrn (NEGATIVE) U Cocaine Metab Screen (NEGATIVE) U Marijuana (THC) Screen (NEGATIVE) HIV-1 Ab Rapid Screen (NON-REACT.) Result Diagrams: 04/28/19 10:00 04/28/19 10:00 Ramos Results Last 24 hrs: Microbiology 04/28/19 09:52 Wet Prep - Final Vagina - Problem List (1) Drug use affecting in third trimester SNOMED Code(s): 07146973, 31290398, 659880083 ICD Code: O99.323 - DRUG USE COMPLICATING , THIRD TRIMESTER Status : Acute Priority: High Current Visit: Yes (2) labor in third trimester SNOMED Code(s): 9369801 ICD Code: O60.03 - LABOR WITHOUT DELIVERY, THIRD TRIMESTER Status: Acute Priority: High Current Visit: Yes (3) Insufficient care in third trimester SNOMED Code(s): 8451961367123, 8190250092838 ICD Code: O09.33 - SUPRVSN OF PREG W INSUFFICIENT ANTENAT CARE, THIRD TRIMESTER Status: Acute Current Visit: Yes (4) History of delivery, currently in third trimester SNOMED Code(s): 35899425, 95886345 ICD Code: O09.213 - SUPRVSN OF PREG W HISTORY OF PRE-TERM LABOR, THIRD TRIMESTER Status: Acute Current Visit: Yes (5) S/P repeat low transverse SNOMED Code(s): 409577943, 74758084, 642208244, 830507885, 784684293 ICD Code: Z98.891 - HISTORY OF UTERINE SCAR FROM PREVIOUS SURGERY Status: Acute Current Visit: Yes (6) History of suicide attempt SNOMED Code(s): 080588077, 346785058 ICD Code: Z91.5 - PERSONAL HISTORY OF SELF-HARM Status: Acute Current Visit: Yes (7) SNOMED Code(s): 23053028 ICD Code: Z34.90 - ENCNTR FOR SUPRVSN OF NORMAL , UNSP, UNSP TRIMESTER Status: Acute Current Visit: Yes (8) 36 to 37 weeks gestation of SNOMED Code(s): 491201093 ICD Code: NPR2789 - Status: Acute Current Visit: Yes (9) Preeclampsia SNOMED Code(s): 864223155 ICD Code: O14.90 - UNSPECIFIED PRE-ECLAMPSIA, UNSPECIFIED TRIMESTER Status : Acute Current Visit: Yes (10) Protein in urine SNOMED Code(s): 67225199 ICD Code: R80.9 - PROTEINURIA, UNSPECIFIED Status: Acute Current Visit: Yes (11) Tobacco user SNOMED Code(s): 543909763 ICD Code: Z72.0 - TOBACCO USE Status: Chronic Priority: Medium Current Visit: No Problem List Initiated/Reviewed/Updated: Yes Orders Last 24hrs: Active Orders 24 hr Category Date Time Status Patient Status [ADT] Routine ADT 04/28/19 11:07 Ordered Antiembolic Devices [RC] .Routine Care 04/28/19 11:10 Ordered Communication Order [RC] ASDIRECTED Care 04/28/19 11:07 Ordered Heart Tones [RC] PER UNIT ROUTINE Care 04/28/19 11:07 Ordered Non Stress Test [RC] Click to Edit Care 04/28/19 11:07 Ordered Notify Provider Vital Signs [RC] PRN Care 04/28/19 11:07 Ordered Notify Provider [RC] PRN Care 04/28/19 11:07 Ordered OB Check [OM.PC] Click to Edit Care 04/28/19 07:32 Ordered VTE/DVT Education [RC] Click to Edit Care 04/28/19 11:10 Ordered Vital Signs [RC] PER UNIT ROUTINE Care 04/28/19 11:07 Ordered Nothing Per Oral Diet [DIET] Diet 04/28/19 Breakfast Ordered CHLAMYDIA/GC AMPLIFICATION Urgent Lab 04/28/19 10:10 Received CULTURE GROUP B STREP [RM] Routine Lab 04/28/19 10:10 Received HCV ANTIBODY Urgent Lab 04/28/19 08:47 Received HEPATITIS B SURF AB QUANT Urgent Lab 04/28/19 10:00 Received TYPE AND SCREEN [BBK] Urgent Lab 04/28/19 08:47 Received T PALLIDUM SCREENING CASCADE Routine Lab 04/28/19 08:47 Received Lactated Ringers [Ringers, Lactated] 1,000 ml Med 04/28/19 09:30 Active IV ASDIRECTED Sodium Chloride 0.9% [Saline Flush] Med 04/28/19 11:07 Ordered 10 ml FLUSH ASDIRECTED PRN DVT/VTE Prophylaxis Reflex [OM.PC] Routine Oth 04/28/19 11:07 Ordered Saline Lock Insert [OM.PC] Routine Oth 04/28/19 11:07 Ordered Resuscitation Status Routine Resus Stat 04/28/19 11:07 Ordered Medication Orders Lactated Ringer's (Ringers, Lactated) 1,000 mls @ 100 mls/hr IV ASDIRECTED GLADYS Last Admin: 04/28/19 09:30 Dose: 100 mls/hr Sodium Chloride (Saline Flush) 10 ml FLUSH ASDIRECTED PRN PRN Reason: Keep Vein Open Assessment/Plan Comment:: 04/28/2019 33 yo came in at 36 6/7 gestational weeks complaining of contractions. She had had insufficient care with a history of incarceration, drug abuse, and attempted suicide. Today she has signifcantly elevated BP and a protein/creatinine ratio of 284. She also has regular contractions that would not go away with interventions. Decision was made to proceed with repeat c- section due to labor and preeclampsia. SVE-1-2/70/-1 FHTs category one Ultrasound-BPP 8/8, placenta grade 2-3 BP currently 140's over 90's Hyperreflexic Positive UDS Hgb-8.5 Wet prep-bacterial vaginosis, trich, positive WBC Plan- Contacted Dr. Oviedo and will proceed to a RCS Will treat patients elevated BP Will treat BV, Trich, yeast after delivery Will do social service consult
[2019-04-28] MEDS ORDERED: cefOXitin 2 GM Vial ONE (12:10)
[2019-04-28] MEDS ORDERED: Lactated Ringers 1,000 ML ONE (12:11)
[2019-04-28] MEDS ORDERED: ePHEDrine 50 MG/ML SDV ONE (12:15)
[2019-04-28] MEDS ORDERED: Midazolam 1 MG/ML 2 ML SDV ONE (12:22)
[2019-04-28] MEDS ORDERED: Magnesium Sulfate/Water 40 GM/1,000 ML BAG ONE (12:23)
[2019-04-28] MEDS ORDERED: Calcium Gluconate 10% 1 GM/10 ML SDV IVPUSH PRN (12:24)
[2019-04-28] MEDS ORDERED: Rocuronium 50 MG/5 ML Vial ONE (12:30)
[2019-04-28] MEDS ORDERED: Magnesium Sulfate/Water 50 ML IV SCH (12:30)
[2019-04-28] MEDS ORDERED: Propofol 200 MG/20 ML SDV ONE (12:33)
[2019-04-28] MEDS ORDERED: Labetalol 20 MG/4 ML Syringe ONE (12:40)
[2019-04-28] MEDS ORDERED: Sugammadex Sodium 200 MG/2 ML VIAL ONE (12:49)
[2019-04-28] MEDS ORDERED: Naloxone 0.4 MG/ML SDV IVPUSH PRN (13:13)
[2019-04-28] MEDS ORDERED: Ondansetron 4 MG/2 ML SDV IVPUSH PRN (13:34)
[2019-04-28] MEDS ORDERED: hydrOXYzine HCl 100 MG/2 ML SDV IM PRN (13:34)
[2019-04-28] MEDS ORDERED: fentaNYL 250 MCG/5 ML SDV ONE (13:34)
[2019-04-28] MEDS ORDERED: Labetalol 20 MG/4 ML Syringe IV PRN (13:35)
[2019-04-28] MEDS ORDERED: Dextrose 5%-Lactated Ringers 1,000 ML IV SCH (13:45)
[2019-04-28] MEDS ORDERED: Sodium Chloride 0.9% 10 ML SDV IV SCH (14:30)
[2019-04-28] MEDS ORDERED: Magnesium Sulfate/Water 40 GM/1,000 ML BAG IV SCH ×2 (14:30)
[2019-04-28] MEDS ORDERED: cefTRIAXone 2 GM in Sodium Chloride 0.9% 50 ML IV ONE (14:30)
--- NOTE | 2019-04-28 14:38 | PCM.PNPP ---
- General Info Date of Service: 04/28/19 - Review of Systems General: Reports: No Symptoms HEENT: Reports: No Symptoms Pulmonary: Reports: No Symptoms Cardiovascular: Reports: No Symptoms Gastrointestinal: Reports: No Symptoms Genitourinary: Reports: No Symptoms Musculoskeletal: Reports: No Symptoms Skin: Reports: No Symptoms Neurological: Reports: No Symptoms Psychiatric: Reports: No Symptoms - General Info Date of Service: 04/28/19 - Patient Data Vital Signs - Most Recent: Last Vital Signs Temp 36.2 C 04/28/19 14:05 Pulse 80 04/28/19 14:05 Resp 14 04/28/19 14:05 BP 116/70 04/28/19 14:05 Pulse Ox 100 04/28/19 14:05 Lab Results - Last 24 Hours: Laboratory Results - last 24 hr 04/28/19 04/28/19 04/28/19 Range/Units 07:32 08:37 08:47 WBC (4.5-11.0) K/uL RBC (3.30-5.50) M/uL Hgb (12.0-15.0) g/dL Hct (36.0-48.0) % MCV (80-98) fL MCH (27-31) pg MCHC (32-36) % Plt Count (150-400) K/uL Neut % (Auto) (36-66) % Lymph % (Auto) (24-44) % Mclennan % (Auto) (2-6) % Eos % (Auto) (2-4) % Baso % (Auto) (0-1) % Puncture Site ABG pH (7.350-7.450) ABG pCO2 (35.0-42.0) mmHg ABG pO2 (75.0-100.0) mmHg ABG HCO3 (22.0-26.0) mmol/L ABG Total CO2 (21.0-25.0) mmol/L ABG O2 Saturation (95.0-98.0) % ABG O2 Content (15.0-23.0) %vol ABG Base Excess mm/L ABG Hemoglobin (12.0-16.0) g/dL ABG Oxyhemoglobin % ABG Carboxyhemoglobin (0.0-1.6) % ABG Methemoglobin % Kavin Test O2 Delivery Device Oxygen Flow Rate L Sodium (140-148) mmol/L Potassium (3.6-5.2) mmol/L Chloride (100-108) mmol/L Carbon Dioxide (21-32) mmol/L Anion Gap (5.0-14.0) mmol/L BUN (7-18) mg/dL Creatinine (0.6-1.0) mg/dL Est Cr Clr Drug Dosing Estimated GFR (MDRD) (>60) Glucose (74-106) mg/dL Uric Acid 4.7 (2.6-6.2) mg/dL Calcium (8.5-10.1) mg/dL Magnesium (1.8-2.4) mg/dL Total Bilirubin (0.2-1.0) mg/dL AST (15-37) U/L ALT (12-78) U/L Alkaline Phosphatase (46-116) U/L Lactate Dehydrogenase (82-234) U/L Total Protein (6.4-8.2) g/dL Albumin (3.4-5.0) g/dL Globulin (2.3-3.5) g/dL Albumin/Globulin Ratio (1.2-2.2) Urine Color Yellow (YELLOW) Urine Appearance Slightly cloudy A (CLEAR) Urine pH 6.0 (5.0-8.0) Ur Specific [place] 1.015 (1.008-1.030) Urine Protein Negative (NEGATIVE) mg/dL Urine Glucose (UA) Negative (NEGATIVE) mg/dL Urine Ketones Negative (NEGATIVE) mg/dL Urine Occult Blood Negative (NEGATIVE) Urine Nitrite Negative (NEGATIVE) Urine Bilirubin Negative (NEGATIVE) Urine Urobilinogen 0.2 (0.2-1.0) EU/dL Ur Leukocyte Esterase Small H (NEGATIVE) Urine RBC 0-5 (0-5) Urine WBC 20-30 H (0-5) Ur Epithelial Cells Many Amorphous Sediment Not seen Urine Bacteria Many Urine Mucus Few Urine Other Ur Random Creatinine (20.0-370.0) mg/dL U Random Total Protein (6.0-11.9) mg/dL Protein/Creatinin Ratio (21.0-161.0) mg/g Membrane Rupture (NEGATIVE) Urine Opiates Screen Negative (NEGATIVE) Ur Oxycodone Screen Negative (NEGATIVE) Urine Methadone Screen Negative (NEGATIVE) Ur Propoxyphene Screen Negative (NEGATIVE) Ur Barbiturates Screen Negative (NEGATIVE) Ur Tricyclics Screen Negative (NEGATIVE) Ur Phencyclidine Scrn Negative (NEGATIVE) Ur Amphetamine Screen Negative (NEGATIVE) U Methamphetamines Scrn Presumptive positive H (NEGATIVE) Urine MDMA Screen Negative (NEGATIVE) U Benzodiazepines Scrn Negative (NEGATIVE) U Cocaine Metab Screen Negative (NEGATIVE) U Marijuana (THC) Screen Negative (NEGATIVE) HIV-1 Ab Rapid Screen (NON-REACT.) Blood Type Gel Antibody Screen Crossmatch 04/28/19 04/28/19 04/28/19 Range/Units 08:47 08:47 09:51 WBC (4.5-11.0) K/uL RBC (3.30-5.50) M/uL Hgb (12.0-15.0) g/dL Hct (36.0-48.0) % MCV (80-98) fL MCH (27-31) pg MCHC (32-36) % Plt Count (150-400) K/uL Neut % (Auto) (36-66) % Lymph % (Auto) (24-44) % Mclennan % (Auto) (2-6) % Eos % (Auto) (2-4) % Baso % (Auto) (0-1) % Puncture Site ABG pH (7.350-7.450) ABG pCO2 (35.0-42.0) mmHg ABG pO2 (75.0-100.0) mmHg ABG HCO3 (22.0-26.0) mmol/L ABG Total CO2 (21.0-25.0) mmol/L ABG O2 Saturation (95.0-98.0) % ABG O2 Content (15.0-23.0) %vol ABG Base Excess mm/L ABG Hemoglobin (12.0-16.0) g/dL ABG Oxyhemoglobin % ABG Carboxyhemoglobin (0.0-1.6) % ABG Methemoglobin % Kavin Test O2 Delivery Device Oxygen Flow Rate L Sodium (140-148) mmol/L Potassium (3.6-5.2) mmol/L Chloride (100-108) mmol/L Carbon Dioxide (21-32) mmol/L Anion Gap (5.0-14.0) mmol/L BUN (7-18) mg/dL Creatinine (0.6-1.0) mg/dL Est Cr Clr Drug Dosing Estimated GFR (MDRD) (>60) Glucose (74-106) mg/dL Uric Acid (2.6-6.2) mg/dL Calcium (8.5-10.1) mg/dL Magnesium (1.8-2.4) mg/dL Total Bilirubin (0.2-1.0) mg/dL AST (15-37) U/L ALT (12-78) U/L Alkaline Phosphatase (46-116) U/L Lactate Dehydrogenase (82-234) U/L Total Protein (6.4-8.2) g/dL Albumin (3.4-5.0) g/dL Globulin (2.3-3.5) g/dL Albumin/Globulin Ratio (1.2-2.2) Urine Color (YELLOW) Urine Appearance (CLEAR) Urine pH (5.0-8.0) Ur Specific [place] (1.008-1.030) Urine Protein (NEGATIVE) mg/dL Urine Glucose (UA) (NEGATIVE) mg/dL Urine Ketones (NEGATIVE) mg/dL Urine Occult Blood (NEGATIVE) Urine Nitrite (NEGATIVE) Urine Bilirubin (NEGATIVE) Urine Urobilinogen (0.2-1.0) EU/dL Ur Leukocyte Esterase (NEGATIVE) Urine RBC (0-5) Urine WBC (0-5) Ur Epithelial Cells Amorphous Sediment Urine Bacteria Urine Mucus Urine Other Ur Random Creatinine 43.2 (20.0-370.0) mg/dL U Random Total Protein 12.3 H (6.0-11.9) mg/dL Protein/Creatinin Ratio 284.7 H (21.0-161.0) mg/g Membrane Rupture Negative (NEGATIVE) Urine Opiates Screen (NEGATIVE) Ur Oxycodone Screen (NEGATIVE) Urine Methadone Screen (NEGATIVE) Ur Propoxyphene Screen (NEGATIVE) Ur Barbiturates Screen (NEGATIVE) Ur Tricyclics Screen (NEGATIVE) Ur Phencyclidine Scrn (NEGATIVE) Ur Amphetamine Screen (NEGATIVE) U Methamphetamines Scrn (NEGATIVE) Urine MDMA Screen (NEGATIVE) U Benzodiazepines Scrn (NEGATIVE) U Cocaine Metab Screen (NEGATIVE) U Marijuana (THC) Screen (NEGATIVE) HIV-1 Ab Rapid Screen (NON-REACT.) Blood Type O POSITIVE Gel Antibody Screen Negative Crossmatch See Detail 04/28/19 04/28/19 04/28/19 Range/Units 10:00 10:00 10:00 WBC 7.7 (4.5-11.0) K/uL RBC 4.69 (3.30-5.50) M/uL Hgb 8.5 L (12.0-15.0) g/dL Hct 30.0 L (36.0-48.0) % MCV 64 L (80-98) fL MCH 18 L (27-31) pg MCHC 28 L (32-36) % Plt Count 342 (150-400) K/uL Neut % (Auto) 61 (36-66) % Lymph % (Auto) 35 (24-44) % [place]clennan % (Auto) 3 (2-6) % Eos % (Auto) 1 L (2-4) % Baso % (Auto) 0 (0-1) % Puncture Site ABG pH (7.350-7.450) ABG pCO2 (35.0-42.0) mmHg ABG pO2 (75.0-100.0) mmHg ABG HCO3 (22.0-26.0) mmol/L ABG Total CO2 (21.0-25.0) mmol/L ABG O2 Saturation (95.0-98.0) % ABG O2 Content (15.0-23.0) %vol ABG Base Excess mm/L ABG Hemoglobin (12.0-16.0) g/dL ABG Oxyhemoglobin % ABG Carboxyhemoglobin (0.0-1.6) % ABG Methemoglobin % Kavin Test O2 Delivery Device Oxygen Flow Rate L Sodium 135 L (140-148) mmol/L Potassium 4.2 (3.6-5.2) mmol/L Chloride 103 (100-108) mmol/L Carbon Dioxide 21 (21-32) mmol/L Anion Gap 15.2 H (5.0-14.0) mmol/L BUN 7 (7-18) mg/dL Creatinine 0.6 (0.6-1.0) mg/dL Est Cr Clr Drug Dosing TNP Estimated GFR (MDRD) > 60 (>60) Glucose 76 (74-106) mg/dL Uric Acid (2.6-6.2) mg/dL Calcium 7.9 L (8.5-10.1) mg/dL Magnesium (1.8-2.4) mg/dL Total Bilirubin 0.1 L D (0.2-1.0) mg/dL AST 10 L D (15-37) U/L ALT 9 L (12-78) U/L Alkaline Phosphatase 174 H (46-116) U/L Lactate Dehydrogenase 106 (82-234) U/L Total Protein 6.4 (6.4-8.2) g/dL Albumin 2.0 L (3.4-5.0) g/dL Globulin 4.4 H (2.3-3.5) g/dL Albumin/Globulin Ratio 0.5 L (1.2-2.2) Urine Color (YELLOW) Urine Appearance (CLEAR) Urine pH (5.0-8.0) Ur Specific [place] (1.008-1.030) Urine Protein (NEGATIVE) mg/dL Urine Glucose (UA) (NEGATIVE) mg/dL Urine Ketones (NEGATIVE) mg/dL Urine Occult Blood (NEGATIVE) Urine Nitrite (NEGATIVE) Urine Bilirubin (NEGATIVE) Urine Urobilinogen (0.2-1.0) EU/dL Ur Leukocyte Esterase (NEGATIVE) Urine RBC (0-5) Urine WBC (0-5) Ur Epithelial Cells Amorphous Sediment Urine Bacteria Urine Mucus Urine Other Ur Random Creatinine (20.0-370.0) mg/dL U Random Total Protein (6.0-11.9) mg/dL Protein/Creatinin Ratio (21.0-161.0) mg/g Membrane Rupture (NEGATIVE) Urine Opiates Screen (NEGATIVE) Ur Oxycodone Screen (NEGATIVE) Urine Methadone Screen (NEGATIVE) Ur Propoxyphene Screen (NEGATIVE) Ur Barbiturates Screen (NEGATIVE) Ur Tricyclics Screen (NEGATIVE) Ur Phencyclidine Scrn (NEGATIVE) Ur Amphetamine Screen (NEGATIVE) U Methamphetamines Scrn (NEGATIVE) Urine MDMA Screen (NEGATIVE) U Benzodiazepines Scrn (NEGATIVE) U Cocaine Metab Screen (NEGATIVE) U Marijuana (THC) Screen (NEGATIVE) HIV-1 Ab Rapid Screen Non-reactive (NON-REACT.) Blood Type Gel Antibody Screen Crossmatch 04/28/19 04/28/19 04/28/19 Range/Units 12:37 13:18 13:18 WBC 19.0 H (4.5-11.0) K/uL RBC 4.63 (3.30-5.50) M/uL Hgb 8.3 L (12.0-15.0) g/dL Hct 29.9 L (36.0-48.0) % MCV 65 L (80-98) fL MCH 18 L (27-31) pg MCHC 28 L (32-36) % Plt Count 303 (150-400) K/uL Neut % (Auto) (36-66) % Lymph % (Auto) (24-44) % [place] % (Auto) (2-6) % Eos % (Auto) (2-4) % Baso % (Auto) (0-1) % Puncture Site Rt radial ABG pH 7.336 L (7.350-7.450) ABG pCO2 37.0 (35.0-42.0) mmHg ABG pO2 105.0 H (75.0-100.0) mmHg ABG HCO3 19.3 L (22.0-26.0) mmol/L ABG Total CO2 18.5 L (21.0-25.0) mmol/L ABG O2 Saturation 97.6 (95.0-98.0) % ABG O2 Content 11.5 L (15.0-23.0) %vol ABG Base Excess -5.5 mm/L ABG Hemoglobin 8.6 L (12.0-16.0) g/dL ABG Oxyhemoglobin 94.3 % ABG Carboxyhemoglobin 2.4 H (0.0-1.6) % ABG Methemoglobin 1.0 % Kavin Test Passed O2 Delivery Device Nasal cannula Oxygen Flow Rate 4 L Sodium (140-148) mmol/L Potassium (3.6-5.2) mmol/L Chloride (100-108) mmol/L Carbon Dioxide (21-32) mmol/L Anion Gap (5.0-14.0) mmol/L BUN (7-18) mg/dL Creatinine (0.6-1.0) mg/dL Est Cr Clr Drug Dosing Estimated GFR (MDRD) (>60) Glucose (74-106) mg/dL Uric Acid (2.6-6.2) mg/dL Calcium (8.5-10.1) mg/dL Magnesium (1.8-2.4) mg/dL Total Bilirubin (0.2-1.0) mg/dL AST (15-37) U/L ALT (12-78) U/L Alkaline Phosphatase (46-116) U/L Lactate Dehydrogenase (82-234) U/L Total Protein (6.4-8.2) g/dL Albumin (3.4-5.0) g/dL Globulin (2.3-3.5) g/dL Albumin/Globulin Ratio (1.2-2.2) Urine Color (YELLOW) Urine Appearance (CLEAR) Urine pH (5.0-8.0) Ur Specific [place] (1.008-1.030) Urine Protein (NEGATIVE) mg/dL Urine Glucose (UA) (NEGATIVE) mg/dL Urine Ketones (NEGATIVE) mg/dL Urine Occult Blood (NEGATIVE) Urine Nitrite (NEGATIVE) Urine Bilirubin (NEGATIVE) Urine Urobilinogen (0.2-1.0) EU/dL Ur Leukocyte Esterase (NEGATIVE) Urine RBC (0-5) Urine WBC (0-5) Ur Epithelial Cells Amorphous Sediment Urine Bacteria Urine Mucus Urine Other Ur Random Creatinine (20.0-370.0) mg/dL U Random Total Protein (6.0-11.9) mg/dL Protein/Creatinin Ratio (21.0-161.0) mg/g Membrane Rupture (NEGATIVE) Urine Opiates Screen Negative (NEGATIVE) Ur Oxycodone Screen Negative (NEGATIVE) Urine Methadone Screen Negative (NEGATIVE) Ur Propoxyphene Screen Negative (NEGATIVE) Ur Barbiturates Screen Negative (NEGATIVE) Ur Tricyclics Screen Negative (NEGATIVE) Ur Phencyclidine Scrn Negative (NEGATIVE) Ur Amphetamine Screen Negative (NEGATIVE) U Methamphetamines Scrn Positive H (NEGATIVE) Urine MDMA Screen Negative (NEGATIVE) U Benzodiazepines Scrn Negative (NEGATIVE) U Cocaine Metab Screen Negative (NEGATIVE) U Marijuana (THC) Screen Negative (NEGATIVE) HIV-1 Ab Rapid Screen (NON-REACT.) Blood Type Gel Antibody Screen Crossmatch 04/28/19 Range/Units 14:09 WBC (4.5-11.0) K/uL RBC (3.30-5.50) M/uL Hgb (12.0-15.0) g/dL Hct (36.0-48.0) % MCV (80-98) fL MCH (27-31) pg MCHC (32-36) % Plt Count (150-400) K/uL Neut % (Auto) (36-66) % Lymph % (Auto) (24-44) % [place] % (Auto) (2-6) % Eos % (Auto) (2-4) % Baso % (Auto) (0-1) % Puncture Site ABG pH (7.350-7.450) ABG pCO2 (35.0-42.0) mmHg ABG pO2 (75.0-100.0) mmHg ABG HCO3 (22.0-26.0) mmol/L ABG Total CO2 (21.0-25.0) mmol/L ABG O2 Saturation (95.0-98.0) % ABG O2 Content (15.0-23.0) %vol ABG Base Excess mm/L ABG Hemoglobin (12.0-16.0) g/dL ABG Oxyhemoglobin % ABG Carboxyhemoglobin (0.0-1.6) % ABG Methemoglobin % Kavin Test O2 Delivery Device Oxygen Flow Rate L Sodium (140-148) mmol/L Potassium (3.6-5.2) mmol/L Chloride (100-108) mmol/L Carbon Dioxide (21-32) mmol/L Anion Gap (5.0-14.0) mmol/L BUN (7-18) mg/dL Creatinine (0.6-1.0) mg/dL Est Cr Clr Drug Dosing Estimated GFR (MDRD) (>60) Glucose (74-106) mg/dL Uric Acid (2.6-6.2) mg/dL Calcium (8.5-10.1) mg/dL Magnesium 1.5 L (1.8-2.4) mg/dL Total Bilirubin (0.2-1.0) mg/dL AST (15-37) U/L ALT (12-78) U/L Alkaline Phosphatase (46-116) U/L Lactate Dehydrogenase (82-234) U/L Total Protein (6.4-8.2) g/dL Albumin (3.4-5.0) g/dL Globulin (2.3-3.5) g/dL Albumin/Globulin Ratio (1.2-2.2) Urine Color (YELLOW) Urine Appearance (CLEAR) Urine pH (5.0-8.0) Ur Specific [place] (1.008-1.030) Urine Protein (NEGATIVE) mg/dL Urine Glucose (UA) (NEGATIVE) mg/dL Urine Ketones (NEGATIVE) mg/dL Urine Occult Blood (NEGATIVE) Urine Nitrite (NEGATIVE) Urine Bilirubin (NEGATIVE) Urine Urobilinogen (0.2-1.0) EU/dL Ur Leukocyte Esterase (NEGATIVE) Urine RBC (0-5) Urine WBC (0-5) Ur Epithelial Cells Amorphous Sediment Urine Bacteria Urine Mucus Urine Other Ur Random Creatinine (20.0-370.0) mg/dL U Random Total Protein (6.0-11.9) mg/dL Protein/Creatinin Ratio (21.0-161.0) mg/g Membrane Rupture (NEGATIVE) Urine Opiates Screen (NEGATIVE) Ur Oxycodone Screen (NEGATIVE) Urine Methadone Screen (NEGATIVE) Ur Propoxyphene Screen (NEGATIVE) Ur Barbiturates Screen (NEGATIVE) Ur Tricyclics Screen (NEGATIVE) Ur Phencyclidine Scrn (NEGATIVE) Ur Amphetamine Screen (NEGATIVE) U Methamphetamines Scrn (NEGATIVE) Urine MDMA Screen (NEGATIVE) U Benzodiazepines Scrn (NEGATIVE) U Cocaine Metab Screen (NEGATIVE) U Marijuana (THC) Screen (NEGATIVE) HIV-1 Ab Rapid Screen (NON-REACT.) Blood Type Gel Antibody Screen Crossmatch Micro Results - Last 24 Hours: Microbiology 04/28/19 09:52 Wet Prep - Final Vagina Med Orders - Current: Current Medications Calcium Gluconate (Calcium Gluconate) 1 gm IVPUSH ONETIME PRN PRN Reason: MAGNESIUM TOXICITY Hydromorphone HCl (Dilaudid Grinder Machine Knife Setter 15 Mg In Ns 30 Ml) 0 mg IV ASDIRECTED PRN; Protocol PRN Reason: Pain Hydroxyzine HCl (Vistaril) 100 mg IM Q4H PRN PRN Reason: PAIN Ceftriaxone Sodium 2 gm/ (Sodium Chloride) 50 mls @ 100 mls/hr IV ONETIME ONE Stop: 04/28/19 14:59 Metronidazole 500 mg/ Premix 100 mls @ 100 mls/hr IV Q8H GLADYS Stop: 04/29/19 16:29 Sodium Chloride (Normal Saline) 1,000 mls @ 100 mls/hr IV ASDIRECTED GLADYS Magnesium Sulfate (Magnesium Sulfate In Water Premix) 40 gm in 1,000 mls @ 0 mls/hr IV ASDIRECTED GLADYS Stop: 04/29/19 14:30 Labetalol HCl (Normodyne) 5 - 10 mg IV Q1H PRN PRN Reason: FOR SBP >/= 160 OR DBP > 95 Naloxone HCl (Narcan) 0.1 mg IVPUSH Q2M PRN PRN Reason: Respiratory Distress Ondansetron HCl (Zofran) 4 mg IVPUSH Q4H PRN PRN Reason: Nausea Sodium Chloride (Saline Flush) 10 ml FLUSH ASDIRECTED PRN PRN Reason: Keep Vein Open Sodium Chloride (Normal Saline) 0 ml IV ASDIRECTED GLADYS Discontinued Medications Cefoxitin Sodium (Mefoxin) Confirm Administered Dose 1 gm .ROUTE .STK-MED ONE Stop: 04/28/19 11:08 Last Admin: 04/28/19 12:55 Dose: 1 gm Cefoxitin Sodium (Mefoxin) Confirm Administered Dose 2 gm .ROUTE .STK-MED ONE Stop: 04/28/19 12:11 Ephedrine Sulfate (Ephedrine Sulfate) Confirm Administered Dose 50 mg .ROUTE .STK-MED ONE Stop: 04/28/19 12:16 Fentanyl (Sublimaze) Confirm Administered Dose 250 mcg .ROUTE .STK-MED ONE Stop: 04/28/19 13:35 Lactated Ringer's (Ringers, Lactated) 1,000 mls @ 999 mls/hr IV BOLUS ONE Stop: 04/28/19 09:16 Last Admin: 04/28/19 08:27 Dose: 999 mls/hr Lactated Ringer's (Ringers, Lactated) 1,000 mls @ 100 mls/hr IV ASDIRECTED GLADYS Last Admin: 04/28/19 09:30 Dose: 100 mls/hr Lactated Ringer's (Ringers, Lactated) Confirm Administered Dose 1,000 mls @ as directed .ROUTE .STK-MED ONE Stop: 04/28/19 12:12 Magnesium Sulfate (Magnesium Sulfate In Water Premix) Confirm Administered Dose 40 gm in 1,000 mls @ as directed .ROUTE .STK-MED ONE Stop: 04/28/19 12:24 Labetalol HCl (Normodyne) Confirm Administered Dose 20 mg .ROUTE .STK-MED ONE Stop: 04/28/19 12:41 Midazolam HCl (Versed 1 Mg/Ml) Confirm Administered Dose 2 mg .ROUTE .STK-MED ONE Stop: 04/28/19 12:23 Oxytocin (Pitocin) Confirm Administered Dose 10 unit .ROUTE .STK-MED ONE Stop: 04/28/19 11:08 Last Admin: 04/28/19 12:25 Dose: 10 unit Oxytocin (Pitocin) Confirm Administered Dose 20 unit .ROUTE .STK-MED ONE Stop: 04/28/19 12:11 Propofol (Diprivan 20 Ml) Confirm Administered Dose 200 mg .ROUTE .STK-MED ONE Stop: 04/28/19 12:34 Rocuronium [place] (Zemuron) Confirm Administered Dose 50 mg .ROUTE .STK-MED ONE Stop: 04/28/19 12:31 Sugammadex Sodium (Bridion) Confirm Administered Dose 200 mg .ROUTE .STK-MED ONE Stop: 04/28/19 12:50 - Infant Interaction Infant Disposition, : to Nursery Interaction: Other (see below) - Recovery Exam Lochia Amount: Small Lochia Color: Rubra/Red - Exam General: Alert, Oriented, Cooperative HEENT: Pupils Equal Neck: Supple Lungs: Clear to Auscultation, Normal Respiratory Effort Cardiovascular: Regular Rate, Regular Rhythm GI/Abdominal Exam: Normal Bowel Sounds, Soft, Non-Tender, No Organomegaly, No Distention, No Abnormal Bruit, No Mass, Pelvis Stable Extremities: Normal Inspection, Normal Range of Motion, Non-Tender, No Pedal Edema, Normal Capillary Refill Skin: Warm, Dry, Intact Wound/Incisions: Healing Well Neurological: No New Focal Deficit Psy/Mental Status: Alert, Normal Affect, Normal Mood - Problem List & Annotations (1) Drug use affecting in third trimester SNOMED Code(s): 03894409, 12454784, 070182553 Code(s): O99.323 - DRUG USE COMPLICATING , THIRD TRIMESTER Status : Acute Priority: High Current Visit: Yes (2) labor in third trimester SNOMED Code(s): 5562095 Code(s): O60.03 - LABOR WITHOUT DELIVERY, THIRD TRIMESTER Status: Acute Priority: High Current Visit: Yes (3) Insufficient care in third trimester SNOMED Code(s): 8861348304670, 1686867310005 Code(s): O09.33 - SUPRVSN OF PREG W INSUFFICIENT ANTENAT CARE, THIRD TRIMESTER Status: Acute Current Visit: Yes (4) History of delivery, currently in third trimester SNOMED Code(s): 59414244, 61251117 Code(s): O09.213 - SUPRVSN OF PREG W HISTORY OF PRE-TERM LABOR, THIRD TRIMESTER Status: Acute Current Visit: Yes (5) S/P repeat low transverse SNOMED Code(s): 375238317, 77826686, 708792515, 893695929, 509674183 Code(s): Z98.891 - HISTORY OF UTERINE SCAR FROM PREVIOUS SURGERY Status: Acute Current Visit: Yes (6) History of suicide attempt SNOMED Code(s): 881185425, 736683798 Code(s): Z91.5 - PERSONAL HISTORY OF SELF-HARM Status: Acute Current Visit: Yes (7) SNOMED Code(s): 41576660 Code(s): Z34.90 - ENCNTR FOR SUPRVSN OF NORMAL , UNSP, UNSP TRIMESTER Status: Acute Current Visit: Yes (8) 36 to 37 weeks gestation of SNOMED Code(s): 706742740 Code(s): PBP7395 - Status: Acute Current Visit: Yes (9) Preeclampsia SNOMED Code(s): 833143892 Code(s): O14.90 - UNSPECIFIED PRE-ECLAMPSIA, UNSPECIFIED TRIMESTER Status: Acute Current Visit: Yes (10) Protein in urine SNOMED Code(s): 63960897 Code(s): R80.9 - PROTEINURIA, UNSPECIFIED Status: Acute Current Visit: Yes (11) Tobacco user SNOMED Code(s): 504803938 Code(s): Z72.0 - TOBACCO USE Status: Chronic Priority: Medium Current Visit: No (12) Seizure SNOMED Code(s): 67160105 Code(s): R56.9 - UNSPECIFIED CONVULSIONS Status: Acute Current Visit: Yes - Problem List Review Problem List Initiated/Reviewed/Updated: Yes - My Orders Last 24 Hours: My Active Orders 04/28/19 07:32 OB Check [OM.PC] Click to Edit 04/28/19 08:47 HCV ANTIBODY Urgent TYPE AND SCREEN [BBK] Urgent RED BLOOD CELLS LP [BBK] Routine T PALLIDUM SCREENING CASCADE Routine TYPE AND SCREEN [BBK] Urgent 04/28/19 10:00 HEPATITIS B SURF AB QUANT Urgent 04/28/19 10:10 CHLAMYDIA/GC AMPLIFICATION Urgent CULTURE GROUP B STREP [RM] Routine 04/28/19 11:07 Patient Status [ADT] Routine Communication Order [RC] ASDIRECTED Heart Tones [RC] PER UNIT ROUTINE Non Stress Test [RC] Click to Edit Notify Provider Vital Signs [RC] PRN Notify Provider [RC] PRN Vital Signs [RC] PER UNIT ROUTINE Sodium Chloride 0.9% [Saline Flush] 10 ml FLUSH ASDIRECTED PRN DVT/VTE Prophylaxis Reflex [OM.PC] Routine Saline Lock Insert [OM.PC] Routine Resuscitation Status Routine 04/28/19 11:10 Antiembolic Devices [RC] .Routine VTE/DVT Education [RC] Click to Edit 04/28/19 14:29 Azithromycin [Zithromax] 1,000 mg Sodium Chloride 0.9% [Normal Saline] 500 ml IV ONETIME 04/28/19 14:30 Magnesium Sulfate 40 GM in Water@ 2 GM/HR(1000ml) Magnesium Sulfate/Water [ Magnesium Sulfate in Water Premix] 40 gm in 1,000 ml IV ASDIRECTED Sodium Chloride 0.9% [Normal Saline] See Dose Instructions IV ASDIRECTED cefTRIAXone [Rocephin] 2 gm Sodium Chloride 0.9% [Normal Saline] 50 ml IV ONETIME 04/28/19 15:30 metroNIDAZOLE/Normal Saline [Flagyl 500 MG in NS 100 ML] 500 mg Premix Bag 1 bag IV Q8H 04/28/19 17:00 CBC WITH AUTO DIFF [HEME] Routine COMPREHENSIVE METABOLIC PN,CMP [CHEM] Routine LACTATE DEHYDROGENASE,LDH [CHEM] Routine MAGNESIUM [CHEM] Routine 04/28/19 Breakfast Nothing Per Oral Diet [DIET] - Assessment Assessment:: 04/28/2019 Post op via RCS at 36 6/7 weeks gestation G7 now P5 Preeclampsia Positive UDS Insufficient care Seizure during RCS Anemia History of History of suicide attempt - Plan Plan:: 04/28/2019 33 yo came in at 36 6/7 gestational weeks complaining of contractions. She had had insufficient care with a history of incarceration, drug abuse, and attempted suicide. Today she has signifcantly elevated BP and a protein/creatinine ratio of 284. She also has regular contractions that would not go away with interventions. Decision was made to proceed with repeat c- section due to labor and preeclampsia. SVE-1-2/70/-1 FHTs category one Ultrasound-BPP 12/29, placenta grade 2-3 BP currently 140's over 90's Hyperreflexic Positive UDS Hgb-8.5 Wet prep-bacterial vaginosis, trich, positive WBC Plan- Contacted Dr. Oviedo and will proceed to a RCS Will treat patients elevated BP Will treat BV, Trich, yeast after delivery Will do social service consult Plan- Patient will remain in ICU To have magnesium 2 gram every hour then will titrate in 24 hours To be on seizure precautions To have vital signs per ICU protocol To have regular care To have IV antibiotics see orders To have NS IV titrated with Magnesium therapy To have CMP, CBC, LDH, and magnesium drawn at 1700 today Strict intake and Output every four hours BP to remain systolic 140-160/ diastolic 90-110 if out of this range to notify provider
[2019-04-28] MEDS ORDERED: Sodium Chloride 0.9% 1,000 ML IV SCH (15:00)
[2019-04-28] MEDS: HYDROmorphone/Normal Saline 15 MG/30 ML PCA IV PRN (15:28)
[2019-04-28] MEDS: metroNIDAZOLE/Normal Saline 500 MG in Premix Bag 1 BAG IV SCH ×2 (15:52→22:55)
[2019-04-28] MEDS ORDERED: Azithromycin 1,000 MG in Sodium Chloride 0.9% 500 ML IV ONE (16:30)
[2019-04-28] MEDS ORDERED: LORazepam 2 MG/ML SDV IVPUSH PRN (17:17)
[2019-04-28] MEDS: cefOXitin 2 GM in Sodium Chloride 0.9% 50 ML IV SCH (19:15)
[2019-04-29] MEDS: cefOXitin 2 GM in Sodium Chloride 0.9% 50 ML IV SCH ×5 (00:02→23:46)
[2019-04-29] MEDS ORDERED: Sodium Chloride 0.9% 1,000 ML IV SCH ×2 (01:00→07:15)
--- NOTE | 2019-04-29 07:32 | PCM.PNPP ---
- General Info Date of Service: 04/29/19 - Review of Systems General: Reports: No Symptoms HEENT: Reports: No Symptoms Pulmonary: Reports: No Symptoms Cardiovascular: Reports: No Symptoms Gastrointestinal: Reports: No Symptoms Genitourinary: Reports: No Symptoms Musculoskeletal: Reports: No Symptoms Skin: Reports: No Symptoms Neurological: Reports: No Symptoms Psychiatric: Reports: No Symptoms - General Info Date of Service: 04/29/19 - Patient Data Vital Signs - Most Recent: Last Vital Signs Temp 36.4 C 04/29/19 04:00 Pulse 86 04/29/19 06:00 Resp 16 04/29/19 06:00 BP 114/82 04/29/19 06:00 Pulse Ox 98 04/29/19 06:00 Weight - Most Recent: 76.748 kg I&O - Last 24 Hours: Intake & Output 04/28/19 04/29/19 04/29/19 22:59 06:59 14:59 Intake Total 3012 Output Total 2014 1349 Balance -2014 1662 Lab Results - Last 24 Hours: Laboratory Results - last 24 hr 04/28/19 04/28/19 04/28/19 Range/Units 07:32 08:37 08:47 WBC (4.5-11.0) K/uL RBC (3.30-5.50) M/uL Hgb (12.0-15.0) g/dL Hct (36.0-48.0) % MCV (80-98) fL MCH (27-31) pg MCHC (32-36) % Plt Count (150-400) K/uL Neut % (Auto) (36-66) % Lymph % (Auto) (24-44) % Lewis % (Auto) (2-6) % Eos % (Auto) (2-4) % Baso % (Auto) (0-1) % Puncture Site ABG pH (7.350-7.450) ABG pCO2 (35.0-42.0) mmHg ABG pO2 (75.0-100.0) mmHg ABG HCO3 (22.0-26.0) mmol/L ABG Total CO2 (21.0-25.0) mmol/L ABG O2 Saturation (95.0-98.0) % ABG O2 Content (15.0-23.0) %vol ABG Base Excess mm/L ABG Hemoglobin (12.0-16.0) g/dL ABG Oxyhemoglobin % ABG Carboxyhemoglobin (0.0-1.6) % ABG Methemoglobin % Kavin Test O2 Delivery Device Oxygen Flow Rate L Sodium (140-148) mmol/L Potassium (3.6-5.2) mmol/L Chloride (100-108) mmol/L Carbon Dioxide (21-32) mmol/L Anion Gap (5.0-14.0) mmol/L BUN (7-18) mg/dL Creatinine (0.6-1.0) mg/dL Est Cr Clr Drug Dosing Estimated GFR (MDRD) (>60) Glucose (74-106) mg/dL Uric Acid 4.7 (2.6-6.2) mg/dL Calcium (8.5-10.1) mg/dL Phosphorus (2.5-4.9) mg/dL Magnesium (1.8-2.4) mg/dL Ferritin (8-388) ng/ml Total Bilirubin (0.2-1.0) mg/dL AST (15-37) U/L ALT (12-78) U/L Alkaline Phosphatase (46-116) U/L Lactate Dehydrogenase (82-234) U/L Total Protein (6.4-8.2) g/dL Albumin (3.4-5.0) g/dL Globulin (2.3-3.5) g/dL Albumin/Globulin Ratio (1.2-2.2) Vitamin B12 (193-986) pg/ml Urine Color Yellow (YELLOW) Urine Appearance Slightly cloudy A (CLEAR) Urine pH 6.0 (5.0-8.0) Ur Specific [place] 1.015 (1.008-1.030) Urine Protein Negative (NEGATIVE) mg/dL Urine Glucose (UA) Negative (NEGATIVE) mg/dL Urine Ketones Negative (NEGATIVE) mg/dL Urine Occult Blood Negative (NEGATIVE) Urine Nitrite Negative (NEGATIVE) Urine Bilirubin Negative (NEGATIVE) Urine Urobilinogen 0.2 (0.2-1.0) EU/dL Ur Leukocyte Esterase Small H (NEGATIVE) Urine RBC 0-5 (0-5) Urine WBC 20-30 H (0-5) Ur Epithelial Cells Many Amorphous Sediment Not seen Urine Bacteria Many Urine Mucus Few Urine Other Ur Random Creatinine (20.0-370.0) mg/dL U Random Total Protein (6.0-11.9) mg/dL Protein/Creatinin Ratio (21.0-161.0) mg/g Membrane Rupture (NEGATIVE) Urine Opiates Screen Negative (NEGATIVE) Ur Oxycodone Screen Negative (NEGATIVE) Urine Methadone Screen Negative (NEGATIVE) Ur Propoxyphene Screen Negative (NEGATIVE) Ur Barbiturates Screen Negative (NEGATIVE) Ur Tricyclics Screen Negative (NEGATIVE) Ur Phencyclidine Scrn Negative (NEGATIVE) Ur Amphetamine Screen Negative (NEGATIVE) U Methamphetamines Scrn Presumptive positive H (NEGATIVE) Urine MDMA Screen Negative (NEGATIVE) U Benzodiazepines Scrn Negative (NEGATIVE) U Cocaine Metab Screen Negative (NEGATIVE) U Marijuana (THC) Screen Negative (NEGATIVE) HIV-1 Ab Rapid Screen (NON-REACT.) Blood Type Gel Antibody Screen Crossmatch 04/28/19 04/28/19 04/28/19 Range/Units 08:47 08:47 09:51 WBC (4.5-11.0) K/uL RBC (3.30-5.50) M/uL Hgb (12.0-15.0) g/dL Hct (36.0-48.0) % MCV (80-98) fL MCH (27-31) pg MCHC (32-36) % Plt Count (150-400) K/uL Neut % (Auto) (36-66) % Lymph % (Auto) (24-44) % Lewis % (Auto) (2-6) % Eos % (Auto) (2-4) % Baso % (Auto) (0-1) % Puncture Site ABG pH (7.350-7.450) ABG pCO2 (35.0-42.0) mmHg ABG pO2 (75.0-100.0) mmHg ABG HCO3 (22.0-26.0) mmol/L ABG Total CO2 (21.0-25.0) mmol/L ABG O2 Saturation (95.0-98.0) % ABG O2 Content (15.0-23.0) %vol ABG Base Excess mm/L ABG Hemoglobin (12.0-16.0) g/dL ABG Oxyhemoglobin % ABG Carboxyhemoglobin (0.0-1.6) % ABG Methemoglobin % Kavin Test O2 Delivery Device Oxygen Flow Rate L Sodium (140-148) mmol/L Potassium (3.6-5.2) mmol/L Chloride (100-108) mmol/L Carbon Dioxide (21-32) mmol/L Anion Gap (5.0-14.0) mmol/L BUN (7-18) mg/dL Creatinine (0.6-1.0) mg/dL Est Cr Clr Drug Dosing Estimated GFR (MDRD) (>60) Glucose (74-106) mg/dL Uric Acid (2.6-6.2) mg/dL Calcium (8.5-10.1) mg/dL Phosphorus (2.5-4.9) mg/dL Magnesium (1.8-2.4) mg/dL Ferritin (8-388) ng/ml Total Bilirubin (0.2-1.0) mg/dL AST (15-37) U/L ALT (12-78) U/L Alkaline Phosphatase (46-116) U/L Lactate Dehydrogenase (82-234) U/L Total Protein (6.4-8.2) g/dL Albumin (3.4-5.0) g/dL Globulin (2.3-3.5) g/dL Albumin/Globulin Ratio (1.2-2.2) Vitamin B12 (193-986) pg/ml Urine Color (YELLOW) Urine Appearance (CLEAR) Urine pH (5.0-8.0) Ur Specific [place] (1.008-1.030) Urine Protein (NEGATIVE) mg/dL Urine Glucose (UA) (NEGATIVE) mg/dL Urine Ketones (NEGATIVE) mg/dL Urine Occult Blood (NEGATIVE) Urine Nitrite (NEGATIVE) Urine Bilirubin (NEGATIVE) Urine Urobilinogen (0.2-1.0) EU/dL Ur Leukocyte Esterase (NEGATIVE) Urine RBC (0-5) Urine WBC (0-5) Ur Epithelial Cells Amorphous Sediment Urine Bacteria Urine Mucus Urine Other Ur Random Creatinine 43.2 (20.0-370.0) mg/dL U Random Total Protein 12.3 H (6.0-11.9) mg/dL Protein/Creatinin Ratio 284.7 H (21.0-161.0) mg/g Membrane Rupture Negative (NEGATIVE) Urine Opiates Screen (NEGATIVE) Ur Oxycodone Screen (NEGATIVE) Urine Methadone Screen (NEGATIVE) Ur Propoxyphene Screen (NEGATIVE) Ur Barbiturates Screen (NEGATIVE) Ur Tricyclics Screen (NEGATIVE) Ur Phencyclidine Scrn (NEGATIVE) Ur Amphetamine Screen (NEGATIVE) U Methamphetamines Scrn (NEGATIVE) Urine MDMA Screen (NEGATIVE) U Benzodiazepines Scrn (NEGATIVE) U Cocaine Metab Screen (NEGATIVE) U Marijuana (THC) Screen (NEGATIVE) HIV-1 Ab Rapid Screen (NON-REACT.) Blood Type O POSITIVE Gel Antibody Screen Negative Crossmatch See Detail 04/28/19 04/28/19 04/28/19 Range/Units 10:00 10:00 10:00 WBC 7.7 (4.5-11.0) K/uL RBC 4.69 (3.30-5.50) M/uL Hgb 8.5 L (12.0-15.0) g/dL Hct 30.0 L (36.0-48.0) % MCV 64 L (80-98) fL MCH 18 L (27-31) pg MCHC 28 L (32-36) % Plt Count 342 (150-400) K/uL Neut % (Auto) 61 (36-66) % Lymph % (Auto) 35 (24-44) % Lewis % (Auto) 3 (2-6) % Eos % (Auto) 1 L (2-4) % Baso % (Auto) 0 (0-1) % Puncture Site ABG pH (7.350-7.450) ABG pCO2 (35.0-42.0) mmHg ABG pO2 (75.0-100.0) mmHg ABG HCO3 (22.0-26.0) mmol/L ABG Total CO2 (21.0-25.0) mmol/L ABG O2 Saturation (95.0-98.0) % ABG O2 Content (15.0-23.0) %vol ABG Base Excess mm/L ABG Hemoglobin (12.0-16.0) g/dL ABG Oxyhemoglobin % ABG Carboxyhemoglobin (0.0-1.6) % ABG Methemoglobin % Kaivn Test O2 Delivery Device Oxygen Flow Rate L Sodium 135 L (140-148) mmol/L Potassium 4.2 (3.6-5.2) mmol/L Chloride 103 (100-108) mmol/L Carbon Dioxide 21 (21-32) mmol/L Anion Gap 15.2 H (5.0-14.0) mmol/L BUN 7 (7-18) mg/dL Creatinine 0.6 (0.6-1.0) mg/dL Est Cr Clr Drug Dosing TNP Estimated GFR (MDRD) > 60 (>60) Glucose 76 (74-106) mg/dL Uric Acid (2.6-6.2) mg/dL Calcium 7.9 L (8.5-10.1) mg/dL Phosphorus (2.5-4.9) mg/dL Magnesium (1.8-2.4) mg/dL Ferritin (8-388) ng/ml Total Bilirubin 0.1 L D (0.2-1.0) mg/dL AST 10 L D (15-37) U/L ALT 9 L (12-78) U/L Alkaline Phosphatase 174 H (46-116) U/L Lactate Dehydrogenase 106 (82-234) U/L Total Protein 6.4 (6.4-8.2) g/dL Albumin 2.0 L (3.4-5.0) g/dL Globulin 4.4 H (2.3-3.5) g/dL Albumin/Globulin Ratio 0.5 L (1.2-2.2) Vitamin B12 (193-986) pg/ml Urine Color (YELLOW) Urine Appearance (CLEAR) Urine pH (5.0-8.0) Ur Specific [place] (1.008-1.030) Urine Protein (NEGATIVE) mg/dL Urine Glucose (UA) (NEGATIVE) mg/dL Urine Ketones (NEGATIVE) mg/dL Urine Occult Blood (NEGATIVE) Urine Nitrite (NEGATIVE) Urine Bilirubin (NEGATIVE) Urine Urobilinogen (0.2-1.0) EU/dL Ur Leukocyte Esterase (NEGATIVE) Urine RBC (0-5) Urine WBC (0-5) Ur Epithelial Cells Amorphous Sediment Urine Bacteria Urine Mucus Urine Other Ur Random Creatinine (20.0-370.0) mg/dL U Random Total Protein (6.0-11.9) mg/dL Protein/Creatinin Ratio (21.0-161.0) mg/g Membrane Rupture (NEGATIVE) Urine Opiates Screen (NEGATIVE) Ur Oxycodone Screen (NEGATIVE) Urine Methadone Screen (NEGATIVE) Ur Propoxyphene Screen (NEGATIVE) Ur Barbiturates Screen (NEGATIVE) Ur Tricyclics Screen (NEGATIVE) Ur Phencyclidine Scrn (NEGATIVE) Ur Amphetamine Screen (NEGATIVE) U Methamphetamines Scrn (NEGATIVE) Urine MDMA Screen (NEGATIVE) U Benzodiazepines Scrn (NEGATIVE) U Cocaine Metab Screen (NEGATIVE) U Marijuana (THC) Screen (NEGATIVE) HIV-1 Ab Rapid Screen Non-reactive (NON-REACT.) Blood Type Gel Antibody Screen Crossmatch 04/28/19 04/28/19 04/28/19 Range/Units 12:37 13:18 13:18 WBC 19.0 H (4.5-11.0) K/uL RBC 4.63 (3.30-5.50) M/uL Hgb 8.3 L (12.0-15.0) g/dL Hct 29.9 L (36.0-48.0) % MCV 65 L (80-98) fL MCH 18 L (27-31) pg MCHC 28 L (32-36) % Plt Count 303 (150-400) K/uL Neut % (Auto) (36-66) % Lymph % (Auto) (24-44) % Lewis % (Auto) (2-6) % Eos % (Auto) (2-4) % Baso % (Auto) (0-1) % Puncture Site Rt radial ABG pH 7.336 L (7.350-7.450) ABG pCO2 37.0 (35.0-42.0) mmHg ABG pO2 105.0 H (75.0-100.0) mmHg ABG HCO3 19.3 L (22.0-26.0) mmol/L ABG Total CO2 18.5 L (21.0-25.0) mmol/L ABG O2 Saturation 97.6 (95.0-98.0) % ABG O2 Content 11.5 L (15.0-23.0) %vol ABG Base Excess -5.5 mm/L ABG Hemoglobin 8.6 L (12.0-16.0) g/dL ABG Oxyhemoglobin 94.3 % ABG Carboxyhemoglobin 2.4 H (0.0-1.6) % ABG Methemoglobin 1.0 % Kavin Test Passed O2 Delivery Device Nasal cannula Oxygen Flow Rate 4 L Sodium (140-148) mmol/L Potassium (3.6-5.2) mmol/L Chloride (100-108) mmol/L Carbon Dioxide (21-32) mmol/L Anion Gap (5.0-14.0) mmol/L BUN (7-18) mg/dL Creatinine (0.6-1.0) mg/dL Est Cr Clr Drug Dosing Estimated GFR (MDRD) (>60) Glucose (74-106) mg/dL Uric Acid (2.6-6.2) mg/dL Calcium (8.5-10.1) mg/dL Phosphorus (2.5-4.9) mg/dL Magnesium (1.8-2.4) mg/dL Ferritin (8-388) ng/ml Total Bilirubin (0.2-1.0) mg/dL AST (15-37) U/L ALT (12-78) U/L Alkaline Phosphatase (46-116) U/L Lactate Dehydrogenase (82-234) U/L Total Protein (6.4-8.2) g/dL Albumin (3.4-5.0) g/dL Globulin (2.3-3.5) g/dL Albumin/Globulin Ratio (1.2-2.2) Vitamin B12 (193-986) pg/ml Urine Color (YELLOW) Urine Appearance (CLEAR) Urine pH (5.0-8.0) Ur Specific [place] (1.008-1.030) Urine Protein (NEGATIVE) mg/dL Urine Glucose (UA) (NEGATIVE) mg/dL Urine Ketones (NEGATIVE) mg/dL Urine Occult Blood (NEGATIVE) Urine Nitrite (NEGATIVE) Urine Bilirubin (NEGATIVE) Urine Urobilinogen (0.2-1.0) EU/dL Ur Leukocyte Esterase (NEGATIVE) Urine RBC (0-5) Urine WBC (0-5) Ur Epithelial Cells Amorphous Sediment Urine Bacteria Urine Mucus Urine Other Ur Random Creatinine (20.0-370.0) mg/dL U Random Total Protein (6.0-11.9) mg/dL Protein/Creatinin Ratio (21.0-161.0) mg/g Membrane Rupture (NEGATIVE) Urine Opiates Screen Negative (NEGATIVE) Ur Oxycodone Screen Negative (NEGATIVE) Urine Methadone Screen Negative (NEGATIVE) Ur Propoxyphene Screen Negative (NEGATIVE) Ur Barbiturates Screen Negative (NEGATIVE) Ur Tricyclics Screen Negative (NEGATIVE) Ur Phencyclidine Scrn Negative (NEGATIVE) Ur Amphetamine Screen Negative (NEGATIVE) U Methamphetamines Scrn Positive H (NEGATIVE) Urine MDMA Screen Negative (NEGATIVE) U Benzodiazepines Scrn Negative (NEGATIVE) U Cocaine Metab Screen Negative (NEGATIVE) U Marijuana (THC) Screen Negative (NEGATIVE) HIV-1 Ab Rapid Screen (NON-REACT.) Blood Type Gel Antibody Screen Crossmatch 04/28/19 04/28/19 04/28/19 Range/Units 14:09 17:00 17:00 WBC 13.8 H (4.5-11.0) K/uL RBC 4.55 (3.30-5.50) M/uL Hgb 8.5 L (12.0-15.0) g/dL Hct 29.2 L (36.0-48.0) % MCV 64 L (80-98) fL MCH 19 L (27-31) pg MCHC 29 L (32-36) % Plt Count 274 (150-400) K/uL Neut % (Auto) 82 H (36-66) % Lymph % (Auto) 14 L (24-44) % Lewis % (Auto) 4 (2-6) % Eos % (Auto) 0 L (2-4) % Baso % (Auto) 0 (0-1) % Puncture Site Lt.radial ABG pH 7.377 (7.350-7.450) ABG pCO2 36.9 (35.0-42.0) mmHg ABG pO2 89.9 (75.0-100.0) mmHg ABG HCO3 21.2 L (22.0-26.0) mmol/L ABG Total CO2 20.1 L (21.0-25.0) mmol/L ABG O2 Saturation 97.0 (95.0-98.0) % ABG O2 Content 11.4 L (15.0-23.0) %vol ABG Base Excess -3.1 mm/L ABG Hemoglobin 8.5 L (12.0-16.0) g/dL ABG Oxyhemoglobin 94.3 % ABG Carboxyhemoglobin 1.9 H (0.0-1.6) % ABG Methemoglobin 0.9 % Kavin Test Passed O2 Delivery Device Nasal cannula Oxygen Flow Rate 1 L Sodium (140-148) mmol/L Potassium (3.6-5.2) mmol/L Chloride (100-108) mmol/L Carbon Dioxide (21-32) mmol/L Anion Gap (5.0-14.0) mmol/L BUN (7-18) mg/dL Creatinine (0.6-1.0) mg/dL Est Cr Clr Drug Dosing Estimated GFR (MDRD) (>60) Glucose (74-106) mg/dL Uric Acid (2.6-6.2) mg/dL Calcium (8.5-10.1) mg/dL Phosphorus (2.5-4.9) mg/dL Magnesium 1.5 L (1.8-2.4) mg/dL Ferritin (8-388) ng/ml Total Bilirubin (0.2-1.0) mg/dL AST (15-37) U/L ALT (12-78) U/L Alkaline Phosphatase (46-116) U/L Lactate Dehydrogenase (82-234) U/L Total Protein (6.4-8.2) g/dL Albumin (3.4-5.0) g/dL Globulin (2.3-3.5) g/dL Albumin/Globulin Ratio (1.2-2.2) Vitamin B12 (193-986) pg/ml Urine Color (YELLOW) Urine Appearance (CLEAR) Urine pH (5.0-8.0) Ur Specific [place] (1.008-1.030) Urine Protein (NEGATIVE) mg/dL Urine Glucose (UA) (NEGATIVE) mg/dL Urine Ketones (NEGATIVE) mg/dL Urine Occult Blood (NEGATIVE) Urine Nitrite (NEGATIVE) Urine Bilirubin (NEGATIVE) Urine Urobilinogen (0.2-1.0) EU/dL Ur Leukocyte Esterase (NEGATIVE) Urine RBC (0-5) Urine WBC (0-5) Ur Epithelial Cells Amorphous Sediment Urine Bacteria Urine Mucus Urine Other Ur Random Creatinine (20.0-370.0) mg/dL U Random Total Protein (6.0-11.9) mg/dL Protein/Creatinin Ratio (21.0-161.0) mg/g Membrane Rupture (NEGATIVE) Urine Opiates Screen (NEGATIVE) Ur Oxycodone Screen (NEGATIVE) Urine Methadone Screen (NEGATIVE) Ur Propoxyphene Screen (NEGATIVE) Ur Barbiturates Screen (NEGATIVE) Ur Tricyclics Screen (NEGATIVE) Ur Phencyclidine Scrn (NEGATIVE) Ur Amphetamine Screen (NEGATIVE) U Methamphetamines Scrn (NEGATIVE) Urine MDMA Screen (NEGATIVE) U Benzodiazepines Scrn (NEGATIVE) U Cocaine Metab Screen (NEGATIVE) U Marijuana (THC) Screen (NEGATIVE) HIV-1 Ab Rapid Screen (NON-REACT.) Blood Type Gel Antibody Screen Crossmatch 04/28/19 04/28/19 04/29/19 Range/Units 17:00 21:00 01:00 WBC (4.5-11.0) K/uL RBC (3.30-5.50) M/uL Hgb (12.0-15.0) g/dL Hct (36.0-48.0) % MCV (80-98) fL MCH (27-31) pg MCHC (32-36) % Plt Count (150-400) K/uL Neut % (Auto) (36-66) % Lymph % (Auto) (24-44) % Lewis % (Auto) (2-6) % Eos % (Auto) (2-4) % Baso % (Auto) (0-1) % Puncture Site ABG pH (7.350-7.450) ABG pCO2 (35.0-42.0) mmHg ABG pO2 (75.0-100.0) mmHg ABG HCO3 (22.0-26.0) mmol/L ABG Total CO2 (21.0-25.0) mmol/L ABG O2 Saturation (95.0-98.0) % ABG O2 Content (15.0-23.0) %vol ABG Base Excess mm/L ABG Hemoglobin (12.0-16.0) g/dL ABG Oxyhemoglobin % ABG Carboxyhemoglobin (0.0-1.6) % ABG Methemoglobin % Kavin Test O2 Delivery Device Oxygen Flow Rate L Sodium 134 L (140-148) mmol/L Potassium 4.1 (3.6-5.2) mmol/L Chloride 104 (100-108) mmol/L Carbon Dioxide 21 (21-32) mmol/L Anion Gap 13.1 (5.0-14.0) mmol/L BUN 6 L (7-18) mg/dL Creatinine 0.6 (0.6-1.0) mg/dL Est Cr Clr Drug Dosing TNP Estimated GFR (MDRD) > 60 (>60) Glucose 86 (74-106) mg/dL Uric Acid (2.6-6.2) mg/dL Calcium 7.9 L (8.5-10.1) mg/dL Phosphorus (2.5-4.9) mg/dL Magnesium 5.0 H D 4.8 H 4.3 H (1.8-2.4) mg/dL Ferritin (8-388) ng/ml Total Bilirubin 0.2 D (0.2-1.0) mg/dL AST 20 D (15-37) U/L ALT 10 L (12-78) U/L Alkaline Phosphatase 175 H (46-116) U/L Lactate Dehydrogenase 219 (82-234) U/L Total Protein 6.2 L (6.4-8.2) g/dL Albumin 1.9 L (3.4-5.0) g/dL Globulin 4.3 H (2.3-3.5) g/dL Albumin/Globulin Ratio 0.4 L (1.2-2.2) Vitamin B12 (193-986) pg/ml Urine Color (YELLOW) Urine Appearance (CLEAR) Urine pH (5.0-8.0) Ur Specific [place] (1.008-1.030) Urine Protein (NEGATIVE) mg/dL Urine Glucose (UA) (NEGATIVE) mg/dL Urine Ketones (NEGATIVE) mg/dL Urine Occult Blood (NEGATIVE) Urine Nitrite (NEGATIVE) Urine Bilirubin (NEGATIVE) Urine Urobilinogen (0.2-1.0) EU/dL Ur Leukocyte Esterase (NEGATIVE) Urine RBC (0-5) Urine WBC (0-5) Ur Epithelial Cells Amorphous Sediment Urine Bacteria Urine Mucus Urine Other Ur Random Creatinine (20.0-370.0) mg/dL U Random Total Protein (6.0-11.9) mg/dL Protein/Creatinin Ratio (21.0-161.0) mg/g Membrane Rupture (NEGATIVE) Urine Opiates Screen (NEGATIVE) Ur Oxycodone Screen (NEGATIVE) Urine Methadone Screen (NEGATIVE) Ur Propoxyphene Screen (NEGATIVE) Ur Barbiturates Screen (NEGATIVE) Ur Tricyclics Screen (NEGATIVE) Ur Phencyclidine Scrn (NEGATIVE) Ur Amphetamine Screen (NEGATIVE) U Methamphetamines Scrn (NEGATIVE) Urine MDMA Screen (NEGATIVE) U Benzodiazepines Scrn (NEGATIVE) U Cocaine Metab Screen (NEGATIVE) U Marijuana (THC) Screen (NEGATIVE) HIV-1 Ab Rapid Screen (NON-REACT.) Blood Type Gel Antibody Screen Crossmatch 04/29/19 04/29/19 04/29/19 Range/Units 05:00 05:00 05:00 WBC 8.5 (4.5-11.0) K/uL RBC 4.31 (3.30-5.50) M/uL Hgb 8.0 L (12.0-15.0) g/dL Hct 27.8 L (36.0-48.0) % MCV 65 L (80-98) fL MCH 19 L (27-31) pg MCHC 29 L (32-36) % Plt Count 248 (150-400) K/uL Neut % (Auto) (36-66) % Lymph % (Auto) (24-44) % Lewis % (Auto) (2-6) % Eos % (Auto) (2-4) % Baso % (Auto) (0-1) % Puncture Site ABG pH (7.350-7.450) ABG pCO2 (35.0-42.0) mmHg ABG pO2 (75.0-100.0) mmHg ABG HCO3 (22.0-26.0) mmol/L ABG Total CO2 (21.0-25.0) mmol/L ABG O2 Saturation (95.0-98.0) % ABG O2 Content (15.0-23.0) %vol ABG Base Excess mm/L ABG Hemoglobin (12.0-16.0) g/dL ABG Oxyhemoglobin % ABG Carboxyhemoglobin (0.0-1.6) % ABG Methemoglobin % Kavin Test O2 Delivery Device Oxygen Flow Rate L Sodium 134 L (140-148) mmol/L Potassium 4.4 (3.6-5.2) mmol/L Chloride 103 (100-108) mmol/L Carbon Dioxide 22 (21-32) mmol/L Anion Gap 13.4 (5.0-14.0) mmol/L BUN 4 L (7-18) mg/dL Creatinine 0.7 (0.6-1.0) mg/dL Est Cr Clr Drug Dosing 92.10 Estimated GFR (MDRD) > 60 (>60) Glucose 94 (74-106) mg/dL Uric Acid (2.6-6.2) mg/dL Calcium 6.9 L* (8.5-10.1) mg/dL Phosphorus 3.0 (2.5-4.9) mg/dL Magnesium 4.5 H (1.8-2.4) mg/dL Ferritin (8-388) ng/ml Total Bilirubin 0.2 (0.2-1.0) mg/dL AST 22 (15-37) U/L ALT 12 (12-78) U/L Alkaline Phosphatase 161 H (46-116) U/L Lactate Dehydrogenase 226 (82-234) U/L Total Protein 5.8 L (6.4-8.2) g/dL Albumin 1.8 L (3.4-5.0) g/dL Globulin 4.0 H (2.3-3.5) g/dL Albumin/Globulin Ratio 0.5 L (1.2-2.2) Vitamin B12 184 L (193-986) pg/ml Urine Color (YELLOW) Urine Appearance (CLEAR) Urine pH (5.0-8.0) Ur Specific [place] (1.008-1.030) Urine Protein (NEGATIVE) mg/dL Urine Glucose (UA) (NEGATIVE) mg/dL Urine Ketones (NEGATIVE) mg/dL Urine Occult Blood (NEGATIVE) Urine Nitrite (NEGATIVE) Urine Bilirubin (NEGATIVE) Urine Urobilinogen (0.2-1.0) EU/dL Ur Leukocyte Esterase (NEGATIVE) Urine RBC (0-5) Urine WBC (0-5) Ur Epithelial Cells Amorphous Sediment Urine Bacteria Urine Mucus Urine Other Ur Random Creatinine (20.0-370.0) mg/dL U Random Total Protein (6.0-11.9) mg/dL Protein/Creatinin Ratio (21.0-161.0) mg/g Membrane Rupture (NEGATIVE) Urine Opiates Screen (NEGATIVE) Ur Oxycodone Screen (NEGATIVE) Urine Methadone Screen (NEGATIVE) Ur Propoxyphene Screen (NEGATIVE) Ur Barbiturates Screen (NEGATIVE) Ur Tricyclics Screen (NEGATIVE) Ur Phencyclidine Scrn (NEGATIVE) Ur Amphetamine Screen (NEGATIVE) U Methamphetamines Scrn (NEGATIVE) Urine MDMA Screen (NEGATIVE) U Benzodiazepines Scrn (NEGATIVE) U Cocaine Metab Screen (NEGATIVE) U Marijuana (THC) Screen (NEGATIVE) HIV-1 Ab Rapid Screen (NON-REACT.) Blood Type Gel Antibody Screen Crossmatch 04/29/19 Range/Units 05:00 WBC (4.5-11.0) K/uL RBC (3.30-5.50) M/uL Hgb (12.0-15.0) g/dL Hct (36.0-48.0) % MCV (80-98) fL MCH (27-31) pg MCHC (32-36) % Plt Count (150-400) K/uL Neut % (Auto) (36-66) % Lymph % (Auto) (24-44) % Lewis % (Auto) (2-6) % Eos % (Auto) (2-4) % Baso % (Auto) (0-1) % Puncture Site ABG pH (7.350-7.450) ABG pCO2 (35.0-42.0) mmHg ABG pO2 (75.0-100.0) mmHg ABG HCO3 (22.0-26.0) mmol/L ABG Total CO2 (21.0-25.0) mmol/L ABG O2 Saturation (95.0-98.0) % ABG O2 Content (15.0-23.0) %vol ABG Base Excess mm/L ABG Hemoglobin (12.0-16.0) g/dL ABG Oxyhemoglobin % ABG Carboxyhemoglobin (0.0-1.6) % ABG Methemoglobin % Kavin Test O2 Delivery Device Oxygen Flow Rate L Sodium (140-148) mmol/L Potassium (3.6-5.2) mmol/L Chloride (100-108) mmol/L Carbon Dioxide (21-32) mmol/L Anion Gap (5.0-14.0) mmol/L BUN (7-18) mg/dL Creatinine (0.6-1.0) mg/dL Est Cr Clr Drug Dosing Estimated GFR (MDRD) (>60) Glucose (74-106) mg/dL Uric Acid (2.6-6.2) mg/dL Calcium (8.5-10.1) mg/dL Phosphorus (2.5-4.9) mg/dL Magnesium (1.8-2.4) mg/dL Ferritin 8 (8-388) ng/ml Total Bilirubin (0.2-1.0) mg/dL AST (15-37) U/L ALT (12-78) U/L Alkaline Phosphatase (46-116) U/L Lactate Dehydrogenase (82-234) U/L Total Protein (6.4-8.2) g/dL Albumin (3.4-5.0) g/dL Globulin (2.3-3.5) g/dL Albumin/Globulin Ratio (1.2-2.2) Vitamin B12 (193-986) pg/ml Urine Color (YELLOW) Urine Appearance (CLEAR) Urine pH (5.0-8.0) Ur Specific [place] (1.008-1.030) Urine Protein (NEGATIVE) mg/dL Urine Glucose (UA) (NEGATIVE) mg/dL Urine Ketones (NEGATIVE) mg/dL Urine Occult Blood (NEGATIVE) Urine Nitrite (NEGATIVE) Urine Bilirubin (NEGATIVE) Urine Urobilinogen (0.2-1.0) EU/dL Ur Leukocyte Esterase (NEGATIVE) Urine RBC (0-5) Urine WBC (0-5) Ur Epithelial Cells Amorphous Sediment Urine Bacteria Urine Mucus Urine Other Ur Random Creatinine (20.0-370.0) mg/dL U Random Total Protein (6.0-11.9) mg/dL Protein/Creatinin Ratio (21.0-161.0) mg/g Membrane Rupture (NEGATIVE) Urine Opiates Screen (NEGATIVE) Ur Oxycodone Screen (NEGATIVE) Urine Methadone Screen (NEGATIVE) Ur Propoxyphene Screen (NEGATIVE) Ur Barbiturates Screen (NEGATIVE) Ur Tricyclics Screen (NEGATIVE) Ur Phencyclidine Scrn (NEGATIVE) Ur Amphetamine Screen (NEGATIVE) U Methamphetamines Scrn (NEGATIVE) Urine MDMA Screen (NEGATIVE) U Benzodiazepines Scrn (NEGATIVE) U Cocaine Metab Screen (NEGATIVE) U Marijuana (THC) Screen (NEGATIVE) HIV-1 Ab Rapid Screen (NON-REACT.) Blood Type Gel Antibody Screen Crossmatch Micro Results - Last 24 Hours: Microbiology 04/28/19 09:52 Wet Prep - Final Vagina Med Orders - Current: Current Medications Calcium Gluconate (Calcium Gluconate) 1 gm IVPUSH ONETIME PRN PRN Reason: MAGNESIUM TOXICITY Cyanocobalamin (Vitamin B12) 1,000 mcg IM DAILY [facility] Stop: 04/30/19 09:01 Hydromorphone HCl (Dilaudid [employer] 15 Mg In Ns 30 Ml) 0 mg IV ASDIRECTED PRN; Protocol PRN Reason: Pain Last Admin: 04/28/19 15:28 Dose: 15 mg Hydroxyzine HCl (Vistaril) 100 mg IM Q4H PRN PRN Reason: PAIN Metronidazole 500 mg/ Premix 100 mls @ 100 mls/hr IV Q8H [facility] Stop: 04/29/19 16:29 Last Admin: 04/28/19 22:55 Dose: 100 mls/hr Magnesium Sulfate (Magnesium Sulfate In Water Premix) 40 gm in 1,000 mls @ 0 mls/hr IV ASDIRECTED [facility] Stop: 04/29/19 14:30 Last Infusion: 04/28/19 19:46 Dose: 25 mls/hr Cefoxitin Sodium 2 gm/ Sodium (Chloride) 50 mls @ 100 mls/hr IV Q6H [facility] Last Admin: 04/29/19 05:18 Dose: 100 mls/hr Sodium Chloride (Normal Saline) 1,000 mls @ 75 mls/hr IV ASDIRECTED [facility] Multivitamins/Minerals 10 ml/Chromium/Copper/Manganese/Seleni/Zn 1 ml/ Thiamine HCl 100 mg/ Sodium Chloride 1,012 mls @ 75 mls/hr IV Q13H [facility] Stop: 04/30/19 10:59 Labetalol HCl (Normodyne) 5 - 10 mg IV Q1H PRN PRN Reason: FOR SBP >/= 160 OR DBP > 95 Lorazepam (Ativan) 1 mg IVPUSH Q2H PRN PRN Reason: Anxiety Naloxone HCl (Narcan) 0.1 mg IVPUSH Q2M PRN PRN Reason: Respiratory Distress Ondansetron HCl (Zofran) 4 mg IVPUSH Q4H PRN PRN Reason: Nausea Sodium Chloride (Saline Flush) 10 ml FLUSH ASDIRECTED PRN PRN Reason: Keep Vein Open Discontinued Medications Cefoxitin Sodium (Mefoxin) Confirm Administered Dose 1 gm .ROUTE .STK-MED ONE Stop: 04/28/19 11:08 Last Admin: 04/28/19 12:55 Dose: 1 gm Cefoxitin Sodium (Mefoxin) Confirm Administered Dose 2 gm .ROUTE .STK-MED ONE Stop: 04/28/19 12:11 Ephedrine Sulfate (Ephedrine Sulfate) Confirm Administered Dose 50 mg .ROUTE .STK-MED ONE Stop: 04/28/19 12:16 Fentanyl (Sublimaze) Confirm Administered Dose 250 mcg .ROUTE .STK-MED ONE Stop: 04/28/19 13:35 Lactated Ringer's (Ringers, Lactated) 1,000 mls @ 999 mls/hr IV BOLUS ONE Stop: 04/28/19 09:16 Last Admin: 04/28/19 08:27 Dose: 999 mls/hr Lactated Ringer's (Ringers, Lactated) 1,000 mls @ 100 mls/hr IV ASDIRECTED [facility] Last Admin: 04/28/19 09:30 Dose: 100 mls/hr Lactated Ringer's (Ringers, Lactated) Confirm Administered Dose 1,000 mls @ as directed .ROUTE .STK-MED ONE Stop: 04/28/19 12:12 Ceftriaxone Sodium 2 gm/ (Sodium Chloride) 50 mls @ 100 mls/hr IV ONETIME ONE Stop: 04/28/19 14:59 Last Admin: 04/28/19 14:25 Dose: 100 mls/hr Azithromycin 1,000 mg/ Sodium (Chloride) 500 mls @ 250 mls/hr IV ONETIME ONE Stop: 04/28/19 18:29 Last Admin: 04/28/19 16:57 Dose: 250 mls/hr Oxytocin/Sodium Chloride (Pitocin In Ns 20 Units/1,000 Ml) 20 unit in 1,000 mls @ 100 mls/hr IV TITRATE [facility] Stop: 04/29/19 00:59 Last Admin: 04/28/19 15:03 Dose: 100 mls/hr Sodium Chloride (Normal Saline) 1,000 mls @ 100 mls/hr IV ASDIRECTED [facility] Labetalol HCl (Normodyne) Confirm Administered Dose 20 mg .ROUTE .STK-MED ONE Stop: 04/28/19 12:41 Midazolam HCl (Versed 1 Mg/Ml) Confirm Administered Dose 2 mg .ROUTE .STK-MED ONE Stop: 04/28/19 12:23 Oxytocin (Pitocin) Confirm Administered Dose 10 unit .ROUTE .STK-MED ONE Stop: 04/28/19 11:08 Last Admin: 04/28/19 12:25 Dose: 10 unit Oxytocin (Pitocin) Confirm Administered Dose 20 unit .ROUTE .STK-MED ONE Stop: 04/28/19 12:11 Propofol (Diprivan 20 Ml) Confirm Administered Dose 200 mg .ROUTE .STK-MED ONE Stop: 04/28/19 12:34 Rocuronium [place] (Zemuron) Confirm Administered Dose 50 mg .ROUTE .STK-MED ONE Stop: 04/28/19 12:31 Sugammadex Sodium (Bridion) Confirm Administered Dose 200 mg .ROUTE .STK-MED ONE Stop: 04/28/19 12:50 - Interaction Disposition, : transfered Interaction: Other (see below) - Recovery Exam Fundal Tone: Firm Fundal Level: At Umbilicus Fundal Placement: Midline Lochia Amount: Small Lochia Color: Serosa/[place] Perineum Description: Intact, Minimal Bruising/Swelling Episiotomy/Laceration: Approximated Bladder Status: Indwelling Catheter in Place Urinary Elimination: Indwelling Catheter - Exam General: Alert, Oriented, Moderate Distress HEENT: Pupils Equal Neck: Supple Lungs: Clear to Auscultation, Normal Respiratory Effort Cardiovascular: Regular Rate, Regular Rhythm, No Murmurs GI/Abdominal Exam: Normal Bowel Sounds, Soft, Non-Tender, No Organomegaly, No Distention, No Abnormal Bruit, No Mass, Pelvis Stable Extremities: Normal Inspection, Normal Range of Motion, Non-Tender, No Pedal Edema, Normal Capillary Refill Skin: Warm, Dry, Intact Wound/Incisions: Healing Well Neurological: No New Focal Deficit Psy/Mental Status: Alert, Normal Affect, Normal Mood - Problem List & Annotations (1) Drug use affecting in third trimester SNOMED Code(s): 19344088, 24122319, 862881258 Code(s): O99.323 - DRUG USE COMPLICATING , THIRD TRIMESTER Status : Acute Priority: High Current Visit: Yes (2) labor in third trimester SNOMED Code(s): 8281741 Code(s): O60.03 - LABOR WITHOUT DELIVERY, THIRD TRIMESTER Status: Acute Priority: High Current Visit: Yes (3) Insufficient care in third trimester SNOMED Code(s): 1188176314338, 3676951354023 Code(s): O09.33 - SUPRVSN OF PREG W INSUFFICIENT ANTENAT CARE, THIRD TRIMESTER Status: Acute Current Visit: Yes (4) History of delivery, currently in third trimester SNOMED Code(s): 58678460, 77076401 Code(s): O09.213 - SUPRVSN OF PREG W HISTORY OF PRE-TERM LABOR, THIRD TRIMESTER Status: Acute Current Visit: Yes (5) S/P repeat low transverse SNOMED Code(s): 536977208, 06029725, 226842939, 303939766, 982559176 Code(s): Z98.891 - HISTORY OF UTERINE SCAR FROM PREVIOUS SURGERY Status: Acute Current Visit: Yes (6) History of suicide attempt SNOMED Code(s): 678507507, 389236356 Code(s): Z91.5 - PERSONAL HISTORY OF SELF-HARM Status: Acute Current Visit: Yes (7) SNOMED Code(s): 51850994 Code(s): Z34.90 - ENCNTR FOR SUPRVSN OF NORMAL , UNSP, UNSP TRIMESTER Status: Acute Current Visit: Yes (8) 36 to 37 weeks gestation of SNOMED Code(s): 369748455 Code(s): GLJ7671 - Status: Acute Current Visit: Yes (9) Preeclampsia SNOMED Code(s): 804635503 Code(s): O14.90 - UNSPECIFIED PRE-ECLAMPSIA, UNSPECIFIED TRIMESTER Status: Acute Current Visit: Yes (10) Protein in urine SNOMED Code(s): 80553618 Code(s): R80.9 - PROTEINURIA, UNSPECIFIED Status: Acute Current Visit: Yes (11) Tobacco user SNOMED Code(s): 902585326 Code(s): Z72.0 - TOBACCO USE Status: Chronic Priority: Medium Current Visit: No (12) Seizure SNOMED Code(s): 74681587 Code(s): R56.9 - UNSPECIFIED CONVULSIONS Status: Acute Current Visit: Yes (13) Noncompliance SNOMED Code(s): 1069994 Code(s): Z91.19 - PATIENT'S NONCOMPLIANCE W OTH MEDICAL TREATMENT AND REGIMEN Status: Acute Current Visit: Yes (14) Depression SNOMED Code(s): 39361302 Code(s): F32.9 - MAJOR DEPRESSIVE DISORDER, SINGLE EPISODE, UNSPECIFIED Status: Acute Current Visit: Yes - Problem List Review Problem List Initiated/Reviewed/Updated: Yes - My Orders Last 24 Hours: My Active Orders 04/28/19 07:32 OB Check [OM.PC] Click to Edit 04/28/19 08:47 HCV ANTIBODY Urgent TYPE AND SCREEN [BBK] Urgent RED BLOOD CELLS LP [BBK] Routine T PALLIDUM SCREENING CASCADE Routine TYPE AND SCREEN [BBK] Urgent 04/28/19 10:00 HEPATITIS B SURF AB QUANT Urgent 04/28/19 10:10 CHLAMYDIA/GC AMPLIFICATION Urgent CULTURE GROUP B STREP [RM] Routine 04/28/19 11:07 Communication Order [RC] ASDIRECTED Notify Provider Vital Signs [RC] PRN Notify Provider [RC] PRN Sodium Chloride 0.9% [Saline Flush] 10 ml FLUSH ASDIRECTED PRN DVT/VTE Prophylaxis Reflex [OM.PC] Routine Saline Lock Insert [OM.PC] Routine Resuscitation Status Routine 04/28/19 11:10 Antiembolic Devices [RC] .Routine VTE/DVT Education [RC] Click to Edit 04/28/19 12:37 MISCELLANEOUS REFERENCE TEST Routine 04/28/19 14:30 Magnesium Sulfate/Water [Magnesium Sulfate in Water Premix] 40 gm in 1,000 ml IV ASDIRECTED 04/28/19 15:30 metroNIDAZOLE/Normal Saline [Flagyl 500 MG in NS 100 ML] 500 mg Premix Bag 1 bag IV Q8H 04/28/19 17:17 LORazepam [Ativan] 1 mg IVPUSH Q2H PRN 04/28/19 18:05 Seizure Precautions [OM.PC] Routine 04/28/19 18:12 Communication Order [RC] Q2H 04/28/19 19:45 Communication Order [RC] ASDIRECTED 04/28/19 21:35 Communication Order [RC] Click to Edit 04/29/19 07:15 Sodium Chloride 0.9% [Normal Saline] 1,000 ml IV ASDIRECTED 04/29/19 09:00 MAGNESIUM [CHEM] Q4H 04/29/19 13:00 MAGNESIUM [CHEM] Q4H 04/29/19 17:00 LACTATE DEHYDROGENASE,LDH [CHEM] Routine MAGNESIUM [CHEM] Q4H 04/29/19 21:00 MAGNESIUM [CHEM] Q4H 04/30/19 01:00 MAGNESIUM [CHEM] Q4H 04/30/19 05:00 LACTATE DEHYDROGENASE,LDH [CHEM] Routine MAGNESIUM [CHEM] Q4H 04/30/19 09:00 MAGNESIUM [CHEM] Q4H 04/30/19 13:00 MAGNESIUM [CHEM] Q4H 04/30/19 17:00 MAGNESIUM [CHEM] Q4H - Assessment Assessment:: 04/28/2019 Post op via RCS at 36 6/7 weeks gestation G7 now P5 Preeclampsia Positive UDS Insufficient care Seizure during RCS Anemia History of History of suicide attempt 04/28/2019 @ 1615 Post op via RCS at 36 6/7 weeks gestation G7 now P5 Preeclampsia Positive UDS Insufficient care Seizure during RCS Anemia History of History of suicide attempt Depression Noncompliance RN called provider to the ICU patient was threatening to leave the facility- is currently also being transferred to a higher level of care. Provider educated patient about safety-she is recent postop, was extubated less than three hours ago, had a recent seizure, is at risk for another, her medications are larger and have side effects. Patient still being risky on leaving. After consulting ER physician on 72 hours hold-was decided patient was at risk for trying to leave AMA, and do to safety risk from history of attempted suicide, history of seizure, less than 24 hour post op, decision was made to have patient placed on a 72 hour hold for her safety. Did also notify Dr. Oviedo of the plan and he agreed. Patient notified and given rights. Patient is allowed to have cell phone and call button since there are video monitors at nurses station. Will continue to follow patient closely. Greater than 60 minutes spent on patient care, patient education, and collaboration of care. - Plan Plan:: 04/28/2019 33 yo came in at 36 6/7 gestational weeks complaining of contractions. She had had insufficient care with a history of incarceration, drug abuse, and attempted suicide. Today she has signifcantly elevated BP and a protein/creatinine ratio of 284. She also has regular contractions that would not go away with interventions. Decision was made to proceed with repeat c- section due to labor and preeclampsia. SVE-1-2/70/-1 FHTs category one Ultrasound-BPP 8/8, placenta grade 2-3 BP currently 140's over 90's Hyperreflexic Positive UDS Hgb-8.5 Wet prep-bacterial vaginosis, trich, positive WBC Plan- Contacted Dr. Oviedo and will proceed to a RCS Will treat patients elevated BP Will treat BV, Trich, yeast after delivery Will do social service consult Plan- Patient will remain in ICU To have magnesium 2 gram every hour then will titrate in 24 hours To be on seizure precautions To have vital signs per ICU protocol To have regular care To have IV antibiotics see orders To have NS IV titrated with Magnesium therapy To have CMP, CBC, LDH, and magnesium drawn at 1700 today Strict intake and Output every four hours BP to remain systolic 140-160/ diastolic 90-110 if out of this range to notify provider
--- NOTE | 2019-04-29 07:45 | PCM.PNPP ---
- General Info Date of Service: 04/28/19 - Patient Data Vital Signs - Most Recent: Last Vital Signs Temp 36.4 C 04/29/19 04:00 Pulse 86 04/29/19 06:00 Resp 16 04/29/19 06:00 BP 114/82 04/29/19 06:00 Pulse Ox 98 04/29/19 06:00 Weight - Most Recent: 76.748 kg I&O - Last 24 Hours: Intake & Output 04/28/19 04/29/19 04/29/19 22:59 06:59 14:59 Intake Total 3013 700 Output Total 2014 1350 Balance -2014 1663 700 Lab Results - Last 24 Hours: Laboratory Results - last 24 hr 04/28/19 04/28/19 04/28/19 Range/Units 07:32 08:37 08:47 WBC (4.5-11.0) K/uL RBC (3.30-5.50) M/uL Hgb (12.0-15.0) g/dL Hct (36.0-48.0) % MCV (80-98) fL MCH (27-31) pg MCHC (32-36) % Plt Count (150-400) K/uL Neut % (Auto) (36-66) % Lymph % (Auto) (24-44) % Rincon % (Auto) (2-6) % Eos % (Auto) (2-4) % Baso % (Auto) (0-1) % Puncture Site ABG pH (7.350-7.450) ABG pCO2 (35.0-42.0) mmHg ABG pO2 (75.0-100.0) mmHg ABG HCO3 (22.0-26.0) mmol/L ABG Total CO2 (21.0-25.0) mmol/L ABG O2 Saturation (95.0-98.0) % ABG O2 Content (15.0-23.0) %vol ABG Base Excess mm/L ABG Hemoglobin (12.0-16.0) g/dL ABG Oxyhemoglobin % ABG Carboxyhemoglobin (0.0-1.6) % ABG Methemoglobin % Kavin Test O2 Delivery Device Oxygen Flow Rate L Sodium (140-148) mmol/L Potassium (3.6-5.2) mmol/L Chloride (100-108) mmol/L Carbon Dioxide (21-32) mmol/L Anion Gap (5.0-14.0) mmol/L BUN (7-18) mg/dL Creatinine (0.6-1.0) mg/dL Est Cr Clr Drug Dosing Estimated GFR (MDRD) (>60) Glucose (74-106) mg/dL Uric Acid 4.7 (2.6-6.2) mg/dL Calcium (8.5-10.1) mg/dL Phosphorus (2.5-4.9) mg/dL Magnesium (1.8-2.4) mg/dL Ferritin (8-388) ng/ml Total Bilirubin (0.2-1.0) mg/dL AST (15-37) U/L ALT (12-78) U/L Alkaline Phosphatase (46-116) U/L Lactate Dehydrogenase (82-234) U/L Total Protein (6.4-8.2) g/dL Albumin (3.4-5.0) g/dL Globulin (2.3-3.5) g/dL Albumin/Globulin Ratio (1.2-2.2) Vitamin B12 (193-986) pg/ml Urine Color Yellow (YELLOW) Urine Appearance Slightly cloudy A (CLEAR) Urine pH 6.0 (5.0-8.0) Ur Specific Jackson 1.015 (1.008-1.030) Urine Protein Negative (NEGATIVE) mg/dL Urine Glucose (UA) Negative (NEGATIVE) mg/dL Urine Ketones Negative (NEGATIVE) mg/dL Urine Occult Blood Negative (NEGATIVE) Urine Nitrite Negative (NEGATIVE) Urine Bilirubin Negative (NEGATIVE) Urine Urobilinogen 0.2 (0.2-1.0) EU/dL Ur Leukocyte Esterase Small H (NEGATIVE) Urine RBC 0-5 (0-5) Urine WBC 20-30 H (0-5) Ur Epithelial Cells Many Amorphous Sediment Not seen Urine Bacteria Many Urine Mucus Few Urine Other Ur Random Creatinine (20.0-370.0) mg/dL U Random Total Protein (6.0-11.9) mg/dL Protein/Creatinin Ratio (21.0-161.0) mg/g Membrane Rupture (NEGATIVE) Urine Opiates Screen Negative (NEGATIVE) Ur Oxycodone Screen Negative (NEGATIVE) Urine Methadone Screen Negative (NEGATIVE) Ur Propoxyphene Screen Negative (NEGATIVE) Ur Barbiturates Screen Negative (NEGATIVE) Ur Tricyclics Screen Negative (NEGATIVE) Ur Phencyclidine Scrn Negative (NEGATIVE) Ur Amphetamine Screen Negative (NEGATIVE) U Methamphetamines Scrn Presumptive positive H (NEGATIVE) Urine MDMA Screen Negative (NEGATIVE) U Benzodiazepines Scrn Negative (NEGATIVE) U Cocaine Metab Screen Negative (NEGATIVE) U Marijuana (THC) Screen Negative (NEGATIVE) HIV-1 Ab Rapid Screen (NON-REACT.) Blood Type Gel Antibody Screen Crossmatch 04/28/19 04/28/19 04/28/19 Range/Units 08:47 08:47 09:51 WBC (4.5-11.0) K/uL RBC (3.30-5.50) M/uL Hgb (12.0-15.0) g/dL Hct (36.0-48.0) % MCV (80-98) fL MCH (27-31) pg MCHC (32-36) % Plt Count (150-400) K/uL Neut % (Auto) (36-66) % Lymph % (Auto) (24-44) % Rincon % (Auto) (2-6) % Eos % (Auto) (2-4) % Baso % (Auto) (0-1) % Puncture Site ABG pH (7.350-7.450) ABG pCO2 (35.0-42.0) mmHg ABG pO2 (75.0-100.0) mmHg ABG HCO3 (22.0-26.0) mmol/L ABG Total CO2 (21.0-25.0) mmol/L ABG O2 Saturation (95.0-98.0) % ABG O2 Content (15.0-23.0) %vol ABG Base Excess mm/L ABG Hemoglobin (12.0-16.0) g/dL ABG Oxyhemoglobin % ABG Carboxyhemoglobin (0.0-1.6) % ABG Methemoglobin % Kavin Test O2 Delivery Device Oxygen Flow Rate L Sodium (140-148) mmol/L Potassium (3.6-5.2) mmol/L Chloride (100-108) mmol/L Carbon Dioxide (21-32) mmol/L Anion Gap (5.0-14.0) mmol/L BUN (7-18) mg/dL Creatinine (0.6-1.0) mg/dL Est Cr Clr Drug Dosing Estimated GFR (MDRD) (>60) Glucose (74-106) mg/dL Uric Acid (2.6-6.2) mg/dL Calcium (8.5-10.1) mg/dL Phosphorus (2.5-4.9) mg/dL Magnesium (1.8-2.4) mg/dL Ferritin (8-388) ng/ml Total Bilirubin (0.2-1.0) mg/dL AST (15-37) U/L ALT (12-78) U/L Alkaline Phosphatase (46-116) U/L Lactate Dehydrogenase (82-234) U/L Total Protein (6.4-8.2) g/dL Albumin (3.4-5.0) g/dL Globulin (2.3-3.5) g/dL Albumin/Globulin Ratio (1.2-2.2) Vitamin B12 (193-986) pg/ml Urine Color (YELLOW) Urine Appearance (CLEAR) Urine pH (5.0-8.0) Ur Specific Jackson (1.008-1.030) Urine Protein (NEGATIVE) mg/dL Urine Glucose (UA) (NEGATIVE) mg/dL Urine Ketones (NEGATIVE) mg/dL Urine Occult Blood (NEGATIVE) Urine Nitrite (NEGATIVE) Urine Bilirubin (NEGATIVE) Urine Urobilinogen (0.2-1.0) EU/dL Ur Leukocyte Esterase (NEGATIVE) Urine RBC (0-5) Urine WBC (0-5) Ur Epithelial Cells Amorphous Sediment Urine Bacteria Urine Mucus Urine Other Ur Random Creatinine 43.2 (20.0-370.0) mg/dL U Random Total Protein 12.3 H (6.0-11.9) mg/dL Protein/Creatinin Ratio 284.7 H (21.0-161.0) mg/g Membrane Rupture Negative (NEGATIVE) Urine Opiates Screen (NEGATIVE) Ur Oxycodone Screen (NEGATIVE) Urine Methadone Screen (NEGATIVE) Ur Propoxyphene Screen (NEGATIVE) Ur Barbiturates Screen (NEGATIVE) Ur Tricyclics Screen (NEGATIVE) Ur Phencyclidine Scrn (NEGATIVE) Ur Amphetamine Screen (NEGATIVE) U Methamphetamines Scrn (NEGATIVE) Urine MDMA Screen (NEGATIVE) U Benzodiazepines Scrn (NEGATIVE) U Cocaine Metab Screen (NEGATIVE) U Marijuana (THC) Screen (NEGATIVE) HIV-1 Ab Rapid Screen (NON-REACT.) Blood Type O POSITIVE Gel Antibody Screen Negative Crossmatch See Detail 04/28/19 04/28/19 04/28/19 Range/Units 10:00 10:00 10:00 WBC 7.7 (4.5-11.0) K/uL RBC 4.69 (3.30-5.50) M/uL Hgb 8.5 L (12.0-15.0) g/dL Hct 30.0 L (36.0-48.0) % MCV 64 L (80-98) fL MCH 18 L (27-31) pg MCHC 28 L (32-36) % Plt Count 342 (150-400) K/uL Neut % (Auto) 61 (36-66) % Lymph % (Auto) 35 (24-44) % Rincon % (Auto) 3 (2-6) % Eos % (Auto) 1 L (2-4) % Baso % (Auto) 0 (0-1) % Puncture Site ABG pH (7.350-7.450) ABG pCO2 (35.0-42.0) mmHg ABG pO2 (75.0-100.0) mmHg ABG HCO3 (22.0-26.0) mmol/L ABG Total CO2 (21.0-25.0) mmol/L ABG O2 Saturation (95.0-98.0) % ABG O2 Content (15.0-23.0) %vol ABG Base Excess mm/L ABG Hemoglobin (12.0-16.0) g/dL ABG Oxyhemoglobin % ABG Carboxyhemoglobin (0.0-1.6) % ABG Methemoglobin % Kavin Test O2 Delivery Device Oxygen Flow Rate L Sodium 135 L (140-148) mmol/L Potassium 4.2 (3.6-5.2) mmol/L Chloride 103 (100-108) mmol/L Carbon Dioxide 21 (21-32) mmol/L Anion Gap 15.2 H (5.0-14.0) mmol/L BUN 7 (7-18) mg/dL Creatinine 0.6 (0.6-1.0) mg/dL Est Cr Clr Drug Dosing TNP Estimated GFR (MDRD) > 60 (>60) Glucose 76 (74-106) mg/dL Uric Acid (2.6-6.2) mg/dL Calcium 7.9 L (8.5-10.1) mg/dL Phosphorus (2.5-4.9) mg/dL Magnesium (1.8-2.4) mg/dL Ferritin (8-388) ng/ml Total Bilirubin 0.1 L D (0.2-1.0) mg/dL AST 10 L D (15-37) U/L ALT 9 L (12-78) U/L Alkaline Phosphatase 174 H (46-116) U/L Lactate Dehydrogenase 106 (82-234) U/L Total Protein 6.4 (6.4-8.2) g/dL Albumin 2.0 L (3.4-5.0) g/dL Globulin 4.4 H (2.3-3.5) g/dL Albumin/Globulin Ratio 0.5 L (1.2-2.2) Vitamin B12 (193-986) pg/ml Urine Color (YELLOW) Urine Appearance (CLEAR) Urine pH (5.0-8.0) Ur Specific Jackson (1.008-1.030) Urine Protein (NEGATIVE) mg/dL Urine Glucose (UA) (NEGATIVE) mg/dL Urine Ketones (NEGATIVE) mg/dL Urine Occult Blood (NEGATIVE) Urine Nitrite (NEGATIVE) Urine Bilirubin (NEGATIVE) Urine Urobilinogen (0.2-1.0) EU/dL Ur Leukocyte Esterase (NEGATIVE) Urine RBC (0-5) Urine WBC (0-5) Ur Epithelial Cells Amorphous Sediment Urine Bacteria Urine Mucus Urine Other Ur Random Creatinine (20.0-370.0) mg/dL U Random Total Protein (6.0-11.9) mg/dL Protein/Creatinin Ratio (21.0-161.0) mg/g Membrane Rupture (NEGATIVE) Urine Opiates Screen (NEGATIVE) Ur Oxycodone Screen (NEGATIVE) Urine Methadone Screen (NEGATIVE) Ur Propoxyphene Screen (NEGATIVE) Ur Barbiturates Screen (NEGATIVE) Ur Tricyclics Screen (NEGATIVE) Ur Phencyclidine Scrn (NEGATIVE) Ur Amphetamine Screen (NEGATIVE) U Methamphetamines Scrn (NEGATIVE) Urine MDMA Screen (NEGATIVE) U Benzodiazepines Scrn (NEGATIVE) U Cocaine Metab Screen (NEGATIVE) U Marijuana (THC) Screen (NEGATIVE) HIV-1 Ab Rapid Screen Non-reactive (NON-REACT.) Blood Type Gel Antibody Screen Crossmatch 04/28/19 04/28/19 04/28/19 Range/Units 12:37 13:18 13:18 WBC 19.0 H (4.5-11.0) K/uL RBC 4.63 (3.30-5.50) M/uL Hgb 8.3 L (12.0-15.0) g/dL Hct 29.9 L (36.0-48.0) % MCV 65 L (80-98) fL MCH 18 L (27-31) pg MCHC 28 L (32-36) % Plt Count 303 (150-400) K/uL Neut % (Auto) (36-66) % Lymph % (Auto) (24-44) % Rin[place] % (Auto) (2-6) % Eos % (Auto) (2-4) % Baso % (Auto) (0-1) % Puncture Site Rt radial ABG pH 7.336 L (7.350-7.450) ABG pCO2 37.0 (35.0-42.0) mmHg ABG pO2 105.0 H (75.0-100.0) mmHg ABG HCO3 19.3 L (22.0-26.0) mmol/L ABG Total CO2 18.5 L (21.0-25.0) mmol/L ABG O2 Saturation 97.6 (95.0-98.0) % ABG O2 Content 11.5 L (15.0-23.0) %vol ABG Base Excess -5.5 mm/L ABG Hemoglobin 8.6 L (12.0-16.0) g/dL ABG Oxyhemoglobin 94.3 % ABG Carboxyhemoglobin 2.4 H (0.0-1.6) % ABG Methemoglobin 1.0 % Kavin Test Passed O2 Delivery Device Nasal cannula Oxygen Flow Rate 4 L Sodium (140-148) mmol/L Potassium (3.6-5.2) mmol/L Chloride (100-108) mmol/L Carbon Dioxide (21-32) mmol/L Anion Gap (5.0-14.0) mmol/L BUN (7-18) mg/dL Creatinine (0.6-1.0) mg/dL Est Cr Clr Drug Dosing Estimated GFR (MDRD) (>60) Glucose (74-106) mg/dL Uric Acid (2.6-6.2) mg/dL Calcium (8.5-10.1) mg/dL Phosphorus (2.5-4.9) mg/dL Magnesium (1.8-2.4) mg/dL Ferritin (8-388) ng/ml Total Bilirubin (0.2-1.0) mg/dL AST (15-37) U/L ALT (12-78) U/L Alkaline Phosphatase (46-116) U/L Lactate Dehydrogenase (82-234) U/L Total Protein (6.4-8.2) g/dL Albumin (3.4-5.0) g/dL Globulin (2.3-3.5) g/dL Albumin/Globulin Ratio (1.2-2.2) Vitamin B12 (193-986) pg/ml Urine Color (YELLOW) Urine Appearance (CLEAR) Urine pH (5.0-8.0) Ur Specific Jackson (1.008-1.030) Urine Protein (NEGATIVE) mg/dL Urine Glucose (UA) (NEGATIVE) mg/dL Urine Ketones (NEGATIVE) mg/dL Urine Occult Blood (NEGATIVE) Urine Nitrite (NEGATIVE) Urine Bilirubin (NEGATIVE) Urine Urobilinogen (0.2-1.0) EU/dL Ur Leukocyte Esterase (NEGATIVE) Urine RBC (0-5) Urine WBC (0-5) Ur Epithelial Cells Amorphous Sediment Urine Bacteria Urine Mucus Urine Other Ur Random Creatinine (20.0-370.0) mg/dL U Random Total Protein (6.0-11.9) mg/dL Protein/Creatinin Ratio (21.0-161.0) mg/g Membrane Rupture (NEGATIVE) Urine Opiates Screen Negative (NEGATIVE) Ur Oxycodone Screen Negative (NEGATIVE) Urine Methadone Screen Negative (NEGATIVE) Ur Propoxyphene Screen Negative (NEGATIVE) Ur Barbiturates Screen Negative (NEGATIVE) Ur Tricyclics Screen Negative (NEGATIVE) Ur Phencyclidine Scrn Negative (NEGATIVE) Ur Amphetamine Screen Negative (NEGATIVE) U Methamphetamines Scrn Positive H (NEGATIVE) Urine MDMA Screen Negative (NEGATIVE) U Benzodiazepines Scrn Negative (NEGATIVE) U Cocaine Metab Screen Negative (NEGATIVE) U Marijuana (THC) Screen Negative (NEGATIVE) HIV-1 Ab Rapid Screen (NON-REACT.) Blood Type Gel Antibody Screen Crossmatch 04/28/19 04/28/19 04/28/19 Range/Units 14:09 17:00 17:00 WBC 13.8 H (4.5-11.0) K/uL RBC 4.55 (3.30-5.50) M/uL Hgb 8.5 L (12.0-15.0) g/dL Hct 29.2 L (36.0-48.0) % MCV 64 L (80-98) fL MCH 19 L (27-31) pg MCHC 29 L (32-36) % Plt Count 274 (150-400) K/uL Neut % (Auto) 82 H (36-66) % Lymph % (Auto) 14 L (24-44) % [place]in[place] % (Auto) 4 (2-6) % Eos % (Auto) 0 L (2-4) % Baso % (Auto) 0 (0-1) % Puncture Site Lt.radial ABG pH 7.377 (7.350-7.450) ABG pCO2 36.9 (35.0-42.0) mmHg ABG pO2 89.9 (75.0-100.0) mmHg ABG HCO3 21.2 L (22.0-26.0) mmol/L ABG Total CO2 20.1 L (21.0-25.0) mmol/L ABG O2 Saturation 97.0 (95.0-98.0) % ABG O2 Content 11.4 L (15.0-23.0) %vol ABG Base Excess -3.1 mm/L ABG Hemoglobin 8.5 L (12.0-16.0) g/dL ABG Oxyhemoglobin 94.3 % ABG Carboxyhemoglobin 1.9 H (0.0-1.6) % ABG Methemoglobin 0.9 % Kavin Test Passed O2 Delivery Device Nasal cannula Oxygen Flow Rate 1 L Sodium (140-148) mmol/L Potassium (3.6-5.2) mmol/L Chloride (100-108) mmol/L Carbon Dioxide (21-32) mmol/L Anion Gap (5.0-14.0) mmol/L BUN (7-18) mg/dL Creatinine (0.6-1.0) mg/dL Est Cr Clr Drug Dosing Estimated GFR (MDRD) (>60) Glucose (74-106) mg/dL Uric Acid (2.6-6.2) mg/dL Calcium (8.5-10.1) mg/dL Phosphorus (2.5-4.9) mg/dL Magnesium 1.5 L (1.8-2.4) mg/dL Ferritin (8-388) ng/ml Total Bilirubin (0.2-1.0) mg/dL AST (15-37) U/L ALT (12-78) U/L Alkaline Phosphatase (46-116) U/L Lactate Dehydrogenase (82-234) U/L Total Protein (6.4-8.2) g/dL Albumin (3.4-5.0) g/dL Globulin (2.3-3.5) g/dL Albumin/Globulin Ratio (1.2-2.2) Vitamin B12 (193-986) pg/ml Urine Color (YELLOW) Urine Appearance (CLEAR) Urine pH (5.0-8.0) Ur Specific Jackson (1.008-1.030) Urine Protein (NEGATIVE) mg/dL Urine Glucose (UA) (NEGATIVE) mg/dL Urine Ketones (NEGATIVE) mg/dL Urine Occult Blood (NEGATIVE) Urine Nitrite (NEGATIVE) Urine Bilirubin (NEGATIVE) Urine Urobilinogen (0.2-1.0) EU/dL Ur Leukocyte Esterase (NEGATIVE) Urine RBC (0-5) Urine WBC (0-5) Ur Epithelial Cells Amorphous Sediment Urine Bacteria Urine Mucus Urine Other Ur Random Creatinine (20.0-370.0) mg/dL U Random Total Protein (6.0-11.9) mg/dL Protein/Creatinin Ratio (21.0-161.0) mg/g Membrane Rupture (NEGATIVE) Urine Opiates Screen (NEGATIVE) Ur Oxycodone Screen (NEGATIVE) Urine Methadone Screen (NEGATIVE) Ur Propoxyphene Screen (NEGATIVE) Ur Barbiturates Screen (NEGATIVE) Ur Tricyclics Screen (NEGATIVE) Ur Phencyclidine Scrn (NEGATIVE) Ur Amphetamine Screen (NEGATIVE) U Methamphetamines Scrn (NEGATIVE) Urine MDMA Screen (NEGATIVE) U Benzodiazepines Scrn (NEGATIVE) U Cocaine Metab Screen (NEGATIVE) U Marijuana (THC) Screen (NEGATIVE) HIV-1 Ab Rapid Screen (NON-REACT.) Blood Type Gel Antibody Screen Crossmatch 04/28/19 04/28/19 04/29/19 Range/Units 17:00 21:00 01:00 WBC (4.5-11.0) K/uL RBC (3.30-5.50) M/uL Hgb (12.0-15.0) g/dL Hct (36.0-48.0) % MCV (80-98) fL MCH (27-31) pg MCHC (32-36) % Plt Count (150-400) K/uL Neut % (Auto) (36-66) % Lymph % (Auto) (24-44) % [place] % (Auto) (2-6) % Eos % (Auto) (2-4) % Baso % (Auto) (0-1) % Puncture Site ABG pH (7.350-7.450) ABG pCO2 (35.0-42.0) mmHg ABG pO2 (75.0-100.0) mmHg ABG HCO3 (22.0-26.0) mmol/L ABG Total CO2 (21.0-25.0) mmol/L ABG O2 Saturation (95.0-98.0) % ABG O2 Content (15.0-23.0) %vol ABG Base Excess mm/L ABG Hemoglobin (12.0-16.0) g/dL ABG Oxyhemoglobin % ABG Carboxyhemoglobin (0.0-1.6) % ABG Methemoglobin % Kavin Test O2 Delivery Device Oxygen Flow Rate L Sodium 134 L (140-148) mmol/L Potassium 4.1 (3.6-5.2) mmol/L Chloride 104 (100-108) mmol/L Carbon Dioxide 21 (21-32) mmol/L Anion Gap 13.1 (5.0-14.0) mmol/L BUN 6 L (7-18) mg/dL Creatinine 0.6 (0.6-1.0) mg/dL Est Cr Clr Drug Dosing TNP Estimated GFR (MDRD) > 60 (>60) Glucose 86 (74-106) mg/dL Uric Acid (2.6-6.2) mg/dL Calcium 7.9 L (8.5-10.1) mg/dL Phosphorus (2.5-4.9) mg/dL Magnesium 5.0 H D 4.8 H 4.3 H (1.8-2.4) mg/dL Ferritin (8-388) ng/ml Total Bilirubin 0.2 D (0.2-1.0) mg/dL AST 20 D (15-37) U/L ALT 10 L (12-78) U/L Alkaline Phosphatase 175 H (46-116) U/L Lactate Dehydrogenase 219 (82-234) U/L Total Protein 6.2 L (6.4-8.2) g/dL Albumin 1.9 L (3.4-5.0) g/dL Globulin 4.3 H (2.3-3.5) g/dL Albumin/Globulin Ratio 0.4 L (1.2-2.2) Vitamin B12 (193-986) pg/ml Urine Color (YELLOW) Urine Appearance (CLEAR) Urine pH (5.0-8.0) Ur Specific Jackson (1.008-1.030) Urine Protein (NEGATIVE) mg/dL Urine Glucose (UA) (NEGATIVE) mg/dL Urine Ketones (NEGATIVE) mg/dL Urine Occult Blood (NEGATIVE) Urine Nitrite (NEGATIVE) Urine Bilirubin (NEGATIVE) Urine Urobilinogen (0.2-1.0) EU/dL Ur Leukocyte Esterase (NEGATIVE) Urine RBC (0-5) Urine WBC (0-5) Ur Epithelial Cells Amorphous Sediment Urine Bacteria Urine Mucus Urine Other Ur Random Creatinine (20.0-370.0) mg/dL U Random Total Protein (6.0-11.9) mg/dL Protein/Creatinin Ratio (21.0-161.0) mg/g Membrane Rupture (NEGATIVE) Urine Opiates Screen (NEGATIVE) Ur Oxycodone Screen (NEGATIVE) Urine Methadone Screen (NEGATIVE) Ur Propoxyphene Screen (NEGATIVE) Ur Barbiturates Screen (NEGATIVE) Ur Tricyclics Screen (NEGATIVE) Ur Phencyclidine Scrn (NEGATIVE) Ur Amphetamine Screen (NEGATIVE) U Methamphetamines Scrn (NEGATIVE) Urine MDMA Screen (NEGATIVE) U Benzodiazepines Scrn (NEGATIVE) U Cocaine Metab Screen (NEGATIVE) U Marijuana (THC) Screen (NEGATIVE) HIV-1 Ab Rapid Screen (NON-REACT.) Blood Type Gel Antibody Screen Crossmatch 04/29/19 04/29/19 04/29/19 Range/Units 05:00 05:00 05:00 WBC 8.5 (4.5-11.0) K/uL RBC 4.31 (3.30-5.50) M/uL Hgb 8.0 L (12.0-15.0) g/dL Hct 27.8 L (36.0-48.0) % MCV 65 L (80-98) fL MCH 19 L (27-31) pg MCHC 29 L (32-36) % Plt Count 248 (150-400) K/uL Neut % (Auto) (36-66) % Lymph % (Auto) (24-44) % [place] % (Auto) (2-6) % Eos % (Auto) (2-4) % Baso % (Auto) (0-1) % Puncture Site ABG pH (7.350-7.450) ABG pCO2 (35.0-42.0) mmHg ABG pO2 (75.0-100.0) mmHg ABG HCO3 (22.0-26.0) mmol/L ABG Total CO2 (21.0-25.0) mmol/L ABG O2 Saturation (95.0-98.0) % ABG O2 Content (15.0-23.0) %vol ABG Base Excess mm/L ABG Hemoglobin (12.0-16.0) g/dL ABG Oxyhemoglobin % ABG Carboxyhemoglobin (0.0-1.6) % ABG Methemoglobin % Kavin Test O2 Delivery Device Oxygen Flow Rate L Sodium 134 L (140-148) mmol/L Potassium 4.4 (3.6-5.2) mmol/L Chloride 103 (100-108) mmol/L Carbon Dioxide 22 (21-32) mmol/L Anion Gap 13.4 (5.0-14.0) mmol/L BUN 4 L (7-18) mg/dL Creatinine 0.7 (0.6-1.0) mg/dL Est Cr Clr Drug Dosing 92.10 Estimated GFR (MDRD) > 60 (>60) Glucose 94 (74-106) mg/dL Uric Acid (2.6-6.2) mg/dL Calcium 6.9 L* (8.5-10.1) mg/dL Phosphorus 3.0 (2.5-4.9) mg/dL Magnesium 4.5 H (1.8-2.4) mg/dL Ferritin (8-388) ng/ml Total Bilirubin 0.2 (0.2-1.0) mg/dL AST 22 (15-37) U/L ALT 12 (12-78) U/L Alkaline Phosphatase 161 H (46-116) U/L Lactate Dehydrogenase 226 (82-234) U/L Total Protein 5.8 L (6.4-8.2) g/dL Albumin 1.8 L (3.4-5.0) g/dL Globulin 4.0 H (2.3-3.5) g/dL Albumin/Globulin Ratio 0.5 L (1.2-2.2) Vitamin B12 184 L (193-986) pg/ml Urine Color (YELLOW) Urine Appearance (CLEAR) Urine pH (5.0-8.0) Ur Specific Jackson (1.008-1.030) Urine Protein (NEGATIVE) mg/dL Urine Glucose (UA) (NEGATIVE) mg/dL Urine Ketones (NEGATIVE) mg/dL Urine Occult Blood (NEGATIVE) Urine Nitrite (NEGATIVE) Urine Bilirubin (NEGATIVE) Urine Urobilinogen (0.2-1.0) EU/dL Ur Leukocyte Esterase (NEGATIVE) Urine RBC (0-5) Urine WBC (0-5) Ur Epithelial Cells Amorphous Sediment Urine Bacteria Urine Mucus Urine Other Ur Random Creatinine (20.0-370.0) mg/dL U Random Total Protein (6.0-11.9) mg/dL Protein/Creatinin Ratio (21.0-161.0) mg/g Membrane Rupture (NEGATIVE) Urine Opiates Screen (NEGATIVE) Ur Oxycodone Screen (NEGATIVE) Urine Methadone Screen (NEGATIVE) Ur Propoxyphene Screen (NEGATIVE) Ur Barbiturates Screen (NEGATIVE) Ur Tricyclics Screen (NEGATIVE) Ur Phencyclidine Scrn (NEGATIVE) Ur Amphetamine Screen (NEGATIVE) U Methamphetamines Scrn (NEGATIVE) Urine MDMA Screen (NEGATIVE) U Benzodiazepines Scrn (NEGATIVE) U Cocaine Metab Screen (NEGATIVE) U Marijuana (THC) Screen (NEGATIVE) HIV-1 Ab Rapid Screen (NON-REACT.) Blood Type Gel Antibody Screen Crossmatch 04/29/19 Range/Units 05:00 WBC (4.5-11.0) K/uL RBC (3.30-5.50) M/uL Hgb (12.0-15.0) g/dL Hct (36.0-48.0) % MCV (80-98) fL MCH (27-31) pg MCHC (32-36) % Plt Count (150-400) K/uL Neut % (Auto) (36-66) % Lymph % (Auto) (24-44) % Rincon % (Auto) (2-6) % Eos % (Auto) (2-4) % Baso % (Auto) (0-1) % Puncture Site ABG pH (7.350-7.450) ABG pCO2 (35.0-42.0) mmHg ABG pO2 (75.0-100.0) mmHg ABG HCO3 (22.0-26.0) mmol/L ABG Total CO2 (21.0-25.0) mmol/L ABG O2 Saturation (95.0-98.0) % ABG O2 Content (15.0-23.0) %vol ABG Base Excess mm/L ABG Hemoglobin (12.0-16.0) g/dL ABG Oxyhemoglobin % ABG Carboxyhemoglobin (0.0-1.6) % ABG Methemoglobin % Kavin Test O2 Delivery Device Oxygen Flow Rate L Sodium (140-148) mmol/L Potassium (3.6-5.2) mmol/L Chloride (100-108) mmol/L Carbon Dioxide (21-32) mmol/L Anion Gap (5.0-14.0) mmol/L BUN (7-18) mg/dL Creatinine (0.6-1.0) mg/dL Est Cr Clr Drug Dosing Estimated GFR (MDRD) (>60) Glucose (74-106) mg/dL Uric Acid (2.6-6.2) mg/dL Calcium (8.5-10.1) mg/dL Phosphorus (2.5-4.9) mg/dL Magnesium (1.8-2.4) mg/dL Ferritin 8 (8-388) ng/ml Total Bilirubin (0.2-1.0) mg/dL AST (15-37) U/L ALT (12-78) U/L Alkaline Phosphatase (46-116) U/L Lactate Dehydrogenase (82-234) U/L Total Protein (6.4-8.2) g/dL Albumin (3.4-5.0) g/dL Globulin (2.3-3.5) g/dL Albumin/Globulin Ratio (1.2-2.2) Vitamin B12 (193-986) pg/ml Urine Color (YELLOW) Urine Appearance (CLEAR) Urine pH (5.0-8.0) Ur Specific Jackson (1.008-1.030) Urine Protein (NEGATIVE) mg/dL Urine Glucose (UA) (NEGATIVE) mg/dL Urine Ketones (NEGATIVE) mg/dL Urine Occult Blood (NEGATIVE) Urine Nitrite (NEGATIVE) Urine Bilirubin (NEGATIVE) Urine Urobilinogen (0.2-1.0) EU/dL Ur Leukocyte Esterase (NEGATIVE) Urine RBC (0-5) Urine WBC (0-5) Ur Epithelial Cells Amorphous Sediment Urine Bacteria Urine Mucus Urine Other Ur Random Creatinine (20.0-370.0) mg/dL U Random Total Protein (6.0-11.9) mg/dL Protein/Creatinin Ratio (21.0-161.0) mg/g Membrane Rupture (NEGATIVE) Urine Opiates Screen (NEGATIVE) Ur Oxycodone Screen (NEGATIVE) Urine Methadone Screen (NEGATIVE) Ur Propoxyphene Screen (NEGATIVE) Ur Barbiturates Screen (NEGATIVE) Ur Tricyclics Screen (NEGATIVE) Ur Phencyclidine Scrn (NEGATIVE) Ur Amphetamine Screen (NEGATIVE) U Methamphetamines Scrn (NEGATIVE) Urine MDMA Screen (NEGATIVE) U Benzodiazepines Scrn (NEGATIVE) U Cocaine Metab Screen (NEGATIVE) U Marijuana (THC) Screen (NEGATIVE) HIV-1 Ab Rapid Screen (NON-REACT.) Blood Type Gel Antibody Screen Crossmatch Micro Results - Last 24 Hours: Microbiology 04/28/19 09:52 Wet Prep - Final Vagina Med Orders - Current: Current Medications Calcium Gluconate (Calcium Gluconate) 1 gm IVPUSH ONETIME PRN PRN Reason: MAGNESIUM TOXICITY Cyanocobalamin (Vitamin B12) 1,000 mcg IM DAILY [facility] Stop: 04/30/19 09:01 Hydromorphone HCl (Dilaudid Coding Auditor 15 Mg In Ns 30 Ml) 0 mg IV ASDIRECTED PRN; Protocol PRN Reason: Pain Last Admin: 04/28/19 15:28 Dose: 15 mg Hydroxyzine HCl (Vistaril) 100 mg IM Q4H PRN PRN Reason: PAIN Metronidazole 500 mg/ Premix 100 mls @ 100 mls/hr IV Q8H [facility] Stop: 04/29/19 16:29 Last Admin: 04/28/19 22:55 Dose: 100 mls/hr Magnesium Sulfate (Magnesium Sulfate In Water Premix) 40 gm in 1,000 mls @ 0 mls/hr IV ASDIRECTED [facility] Stop: 04/29/19 14:30 Last Infusion: 04/29/19 07:26 Dose: 12 mls/hr Cefoxitin Sodium 2 gm/ Sodium (Chloride) 50 mls @ 100 mls/hr IV Q6H [facility] Last Admin: 04/29/19 05:18 Dose: 100 mls/hr Sodium Chloride (Normal Saline) 1,000 mls @ 75 mls/hr IV ASDIRECTED [facility] Multivitamins/Minerals 10 ml/Chromium/Copper/Manganese/Seleni/Zn 1 ml/ Thiamine HCl 100 mg/ Sodium Chloride 1,012 mls @ 75 mls/hr IV Q13H [facility] Stop: 04/30/19 10:59 Labetalol HCl (Normodyne) 5 - 10 mg IV Q1H PRN PRN Reason: FOR SBP >/= 160 OR DBP > 95 Lorazepam (Ativan) 1 mg IVPUSH Q2H PRN PRN Reason: Anxiety Naloxone HCl (Narcan) 0.1 mg IVPUSH Q2M PRN PRN Reason: Respiratory Distress Ondansetron HCl (Zofran) 4 mg IVPUSH Q4H PRN PRN Reason: Nausea Sodium Chloride (Saline Flush) 10 ml FLUSH ASDIRECTED PRN PRN Reason: Keep Vein Open Discontinued Medications Cefoxitin Sodium (Mefoxin) Confirm Administered Dose 1 gm .ROUTE .STK-MED ONE Stop: 04/28/19 11:08 Last Admin: 04/28/19 12:55 Dose: 1 gm Cefoxitin Sodium (Mefoxin) Confirm Administered Dose 2 gm .ROUTE .STK-MED ONE Stop: 04/28/19 12:11 Ephedrine Sulfate (Ephedrine Sulfate) Confirm Administered Dose 50 mg .ROUTE .STK-MED ONE Stop: 04/28/19 12:16 Fentanyl (Sublimaze) Confirm Administered Dose 250 mcg .ROUTE .STK-MED ONE Stop: 04/28/19 13:35 Lactated Ringer's (Ringers, Lactated) 1,000 mls @ 999 mls/hr IV BOLUS ONE Stop: 04/28/19 09:16 Last Admin: 04/28/19 08:27 Dose: 999 mls/hr Lactated Ringer's (Ringers, Lactated) 1,000 mls @ 100 mls/hr IV ASDIRECTED [facility] Last Admin: 04/28/19 09:30 Dose: 100 mls/hr Lactated Ringer's (Ringers, Lactated) Confirm Administered Dose 1,000 mls @ as directed .ROUTE .STK-MED ONE Stop: 04/28/19 12:12 Ceftriaxone Sodium 2 gm/ (Sodium Chloride) 50 mls @ 100 mls/hr IV ONETIME ONE Stop: 04/28/19 14:59 Last Admin: 04/28/19 14:25 Dose: 100 mls/hr Azithromycin 1,000 mg/ Sodium (Chloride) 500 mls @ 250 mls/hr IV ONETIME ONE Stop: 04/28/19 18:29 Last Admin: 04/28/19 16:57 Dose: 250 mls/hr Oxytocin/Sodium Chloride (Pitocin In Ns 20 Units/1,000 Ml) 20 unit in 1,000 mls @ 100 mls/hr IV TITRATE [facility] Stop: 04/29/19 00:59 Last Admin: 04/28/19 15:03 Dose: 100 mls/hr Sodium Chloride (Normal Saline) 1,000 mls @ 100 mls/hr IV ASDIRECTED [facility] Labetalol HCl (Normodyne) Confirm Administered Dose 20 mg .ROUTE .STK-MED ONE Stop: 04/28/19 12:41 Midazolam HCl (Versed 1 Mg/Ml) Confirm Administered Dose 2 mg .ROUTE .STK-MED ONE Stop: 04/28/19 12:23 Oxytocin (Pitocin) Confirm Administered Dose 10 unit .ROUTE .STK-MED ONE Stop: 04/28/19 11:08 Last Admin: 04/28/19 12:25 Dose: 10 unit Oxytocin (Pitocin) Confirm Administered Dose 20 unit .ROUTE .STK-MED ONE Stop: 04/28/19 12:11 Propofol (Diprivan 20 Ml) Confirm Administered Dose 200 mg .ROUTE .STK-MED ONE Stop: 04/28/19 12:34 Rocuronium [place] (Zemuron) Confirm Administered Dose 50 mg .ROUTE .STK-MED ONE Stop: 04/28/19 12:31 Sugammadex Sodium (Bridion) Confirm Administered Dose 200 mg .ROUTE .STK-MED ONE Stop: 04/28/19 12:50 - Infant Interaction Disposition, : transfered Infant Interaction: Other (see below) - Recovery Exam Fundal Tone: Firm Fundal Level: At Umbilicus Fundal Placement: Midline Lochia Amount: Small Lochia Color: [place] Perineum Description: Intact, Minimal Bruising/Swelling Episiotomy/Laceration: Approximated Bladder Status: Indwelling Catheter in Place Urinary Elimination: Indwelling Catheter - Problem List & Annotations (1) Drug use affecting in third trimester SNOMED Code(s): 13542310, 34127913, 105414091 Code(s): O99.323 - DRUG USE COMPLICATING , THIRD TRIMESTER Status : Acute Priority: High Current Visit: Yes (2) labor in third trimester SNOMED Code(s): 1449980 Code(s): O60.03 - LABOR WITHOUT DELIVERY, THIRD TRIMESTER Status: Acute Priority: High Current Visit: Yes (3) Insufficient care in third trimester SNOMED Code(s): 6679602208333, 6955749400220 Code(s): O09.33 - SUPRVSN OF PREG W INSUFFICIENT ANTENAT CARE, THIRD TRIMESTER Status: Acute Current Visit: Yes (4) History of delivery, currently in third trimester SNOMED Code(s): 64838966, 21431396 Code(s): O09.213 - SUPRVSN OF PREG W HISTORY OF PRE-TERM LABOR, THIRD TRIMESTER Status: Acute Current Visit: Yes (5) S/P repeat low transverse SNOMED Code(s): 834937101, 31383689, 420448600, 364235964, 737165608 Code(s): Z98.891 - HISTORY OF UTERINE SCAR FROM PREVIOUS SURGERY Status: Acute Current Visit: Yes (6) History of suicide attempt SNOMED Code(s): 518077041, 932856872 Code(s): Z91.5 - PERSONAL HISTORY OF SELF-HARM Status: Acute Current Visit: Yes (7) SNOMED Code(s): 78779370 Code(s): Z34.90 - ENCNTR FOR SUPRVSN OF NORMAL , UNSP, UNSP TRIMESTER Status: Acute Current Visit: Yes (8) 36 to 37 weeks gestation of SNOMED Code(s): 218747801 Code(s): PLU1402 - Status: Acute Current Visit: Yes (9) Preeclampsia SNOMED Code(s): 791045477 Code(s): O14.90 - UNSPECIFIED PRE-ECLAMPSIA, UNSPECIFIED TRIMESTER Status: Acute Current Visit: Yes (10) Protein in urine SNOMED Code(s): 96800185 Code(s): R80.9 - PROTEINURIA, UNSPECIFIED Status: Acute Current Visit: Yes (11) Tobacco user SNOMED Code(s): 365563701 Code(s): Z72.0 - TOBACCO USE Status: Chronic Priority: Medium Current Visit: No (12) Seizure SNOMED Code(s): 63487319 Code(s): R56.9 - UNSPECIFIED CONVULSIONS Status: Acute Current Visit: Yes (13) Noncompliance SNOMED Code(s): 9516471 Code(s): Z91.19 - PATIENT'S NONCOMPLIANCE W OTH MEDICAL TREATMENT AND REGIMEN Status: Acute Current Visit: Yes (14) Depression SNOMED Code(s): 65423808 Code(s): F32.9 - MAJOR DEPRESSIVE DISORDER, SINGLE EPISODE, UNSPECIFIED Status: Acute Current Visit: Yes - Problem List Review Problem List Initiated/Reviewed/Updated: Yes - My Orders Last 24 Hours: My Active Orders 04/28/19 07:32 OB Check [OM.PC] Click to Edit 04/28/19 08:47 HCV ANTIBODY Urgent TYPE AND SCREEN [BBK] Urgent RED BLOOD CELLS LP [BBK] Routine T PALLIDUM SCREENING CASCADE Routine TYPE AND SCREEN [BBK] Urgent 04/28/19 10:00 HEPATITIS B SURF AB QUANT Urgent 04/28/19 10:10 CHLAMYDIA/GC AMPLIFICATION Urgent CULTURE GROUP B STREP [RM] Routine 04/28/19 11:07 Communication Order [RC] ASDIRECTED Notify Provider Vital Signs [RC] PRN Notify Provider [RC] PRN Sodium Chloride 0.9% [Saline Flush] 10 ml FLUSH ASDIRECTED PRN DVT/VTE Prophylaxis Reflex [OM.PC] Routine Saline Lock Insert [OM.PC] Routine Resuscitation Status Routine 04/28/19 11:10 Antiembolic Devices [RC] .Routine VTE/DVT Education [RC] Click to Edit 04/28/19 12:37 MISCELLANEOUS REFERENCE TEST Routine 04/28/19 14:30 Magnesium Sulfate/Water [Magnesium Sulfate in Water Premix] 40 gm in 1,000 ml IV ASDIRECTED 04/28/19 15:30 metroNIDAZOLE/Normal Saline [Flagyl 500 MG in NS 100 ML] 500 mg Premix Bag 1 bag IV Q8H 04/28/19 17:17 LORazepam [Ativan] 1 mg IVPUSH Q2H PRN 04/28/19 18:05 Seizure Precautions [OM.PC] Routine 04/28/19 18:12 Communication Order [RC] Q2H 04/28/19 19:45 Communication Order [RC] ASDIRECTED 04/28/19 21:35 Communication Order [RC] Click to Edit 04/29/19 07:15 Sodium Chloride 0.9% [Normal Saline] 1,000 ml IV ASDIRECTED 04/29/19 09:00 MAGNESIUM [CHEM] Q4H 04/29/19 13:00 MAGNESIUM [CHEM] Q4H 04/29/19 17:00 LACTATE DEHYDROGENASE,LDH [CHEM] Routine MAGNESIUM [CHEM] Q4H 04/29/19 21:00 MAGNESIUM [CHEM] Q4H 04/30/19 01:00 MAGNESIUM [CHEM] Q4H 04/30/19 05:00 LACTATE DEHYDROGENASE,LDH [CHEM] Routine MAGNESIUM [CHEM] Q4H 04/30/19 09:00 MAGNESIUM [CHEM] Q4H 04/30/19 13:00 MAGNESIUM [CHEM] Q4H 04/30/19 17:00 MAGNESIUM [CHEM] Q4H - Assessment Assessment:: 04/28/2019 Post op via RCS at 36 6/7 weeks gestation G7 now P5 Preeclampsia Positive UDS Insufficient care Seizure during [facility] Anemia History of History of suicide attempt 04/28/2019 @ 1615 Post op via RCS at 36 6/7 weeks gestation G7 now P5 Preeclampsia Positive UDS Insufficient care Seizure during RCS Anemia History of History of suicide attempt Depression Noncompliance RN called provider to the ICU patient was threatening to leave the facility- infant is currently also being transferred to a higher level of care. Provider educated patient about safety-she is recent postop, was extubated less than three hours ago, had a recent seizure, is at risk for another, her medications are larger and have side effects. Patient still being risky on leaving. After consulting ER physician on 72 hours hold-was decided patient was at risk for trying to leave AMA, and do to safety risk from history of attempted suicide, history of seizure, less than 24 hour post op, decision was made to have patient placed on a 72 hour hold for her safety. Did also notify Dr. Oviedo of the plan and he agreed. Patient notified and given rights. Patient is allowed to have cell phone and call button since there are video monitors at nurses station. Will continue to follow patient closely. Greater than 60 minutes spent on patient care, patient education, and collaboration of care. 04/28/2019 @ 8292 Was called again to patient room in ICU due to her requesting that provider come speak to her boyfriend/father of child that was born. Patient wanted provider to explain what all happened to the boyfriend. Boyfriend did state to provider that the patient had used methamphetamines within the last two days. He also stated that he did not know if he would be able to go to [place] to see baby during this time. He also states that they do not have custody of any other children. He was cooperative and did visit with patient after visiting with provider. RN was in room supervising during conversations. Will continue to follow 20 minutes spent on patient care-Patient education and collaboration of care. - Plan Plan:: 04/28/2019 33 yo came in at 36 6/7 gestational weeks complaining of contractions. She had had insufficient care with a history of incarceration, drug abuse, and attempted suicide. Today she has signifcantly elevated BP and a protein/creatinine ratio of 284. She also has regular contractions that would not go away with interventions. Decision was made to proceed with repeat c- section due to labor and preeclampsia. SVE-1-2/70/-1 FHTs category one Ultrasound-BPP 8/8, placenta grade 2-3 BP currently 140's over 90's Hyperreflexic Positive UDS Hgb-8.5 Wet prep-bacterial vaginosis, trich, positive WBC Plan- Contacted Dr. Oviedo and will proceed to a RCS Will treat patients elevated BP Will treat BV, Trich, yeast after delivery Will do social service consult Plan- Patient will remain in ICU To have magnesium 2 gram every hour then will titrate in 24 hours To be on seizure precautions To have vital signs per ICU protocol To have regular care To have IV antibiotics see orders To have NS IV titrated with Magnesium therapy To have CMP, CBC, LDH, and magnesium drawn at 1700 today Strict intake and Output every four hours BP to remain systolic 140-160/ diastolic 90-110 if out of this range to notify provider
[2019-04-29] MEDS: metroNIDAZOLE/Normal Saline 500 MG in Premix Bag 1 BAG IV SCH ×2 (07:47→15:37)
--- NOTE | 2019-04-29 07:53 | PCM.PNPP ---
- General Info Date of Service: 04/29/19 - Review of Systems General: Reports: No Symptoms HEENT: Reports: No Symptoms Pulmonary: Reports: No Symptoms Cardiovascular: Reports: No Symptoms Gastrointestinal: Reports: No Symptoms Genitourinary: Reports: No Symptoms Musculoskeletal: Reports: No Symptoms Skin: Reports: No Symptoms Neurological: Reports: No Symptoms Psychiatric: Reports: No Symptoms - General Info Date of Service: 04/29/19 - Patient Data Vital Signs - Most Recent: Last Vital Signs Temp 36.4 C 04/29/19 04:00 Pulse 86 04/29/19 06:00 Resp 16 04/29/19 06:00 BP 114/82 04/29/19 06:00 Pulse Ox 98 04/29/19 06:00 Weight - Most Recent: 76.748 kg I&O - Last 24 Hours: Intake & Output 04/28/19 04/29/19 04/29/19 22:59 06:59 14:59 Intake Total 3013 700 Output Total 2014 1350 Balance -20143 700 Lab Results - Last 24 Hours: Laboratory Results - last 24 hr 04/28/19 04/28/19 04/28/19 Range/Units 07:32 08:37 08:47 WBC (4.5-11.0) K/uL RBC (3.30-5.50) M/uL Hgb (12.0-15.0) g/dL Hct (36.0-48.0) % MCV (80-98) fL MCH (27-31) pg MCHC (32-36) % Plt Count (150-400) K/uL Neut % (Auto) (36-66) % Lymph % (Auto) (24-44) % [place] % (Auto) (2-6) % Eos % (Auto) (2-4) % Baso % (Auto) (0-1) % Puncture Site ABG pH (7.350-7.450) ABG pCO2 (35.0-42.0) mmHg ABG pO2 (75.0-100.0) mmHg ABG HCO3 (22.0-26.0) mmol/L ABG Total CO2 (21.0-25.0) mmol/L ABG O2 Saturation (95.0-98.0) % ABG O2 Content (15.0-23.0) %vol ABG Base Excess mm/L ABG Hemoglobin (12.0-16.0) g/dL ABG Oxyhemoglobin % ABG Carboxyhemoglobin (0.0-1.6) % ABG Methemoglobin % Kavin Test O2 Delivery Device Oxygen Flow Rate L Sodium (140-148) mmol/L Potassium (3.6-5.2) mmol/L Chloride (100-108) mmol/L Carbon Dioxide (21-32) mmol/L Anion Gap (5.0-14.0) mmol/L BUN (7-18) mg/dL Creatinine (0.6-1.0) mg/dL Est Cr Clr Drug Dosing Estimated GFR (MDRD) (>60) Glucose (74-106) mg/dL Uric Acid 4.7 (2.6-6.2) mg/dL Calcium (8.5-10.1) mg/dL Phosphorus (2.5-4.9) mg/dL Magnesium (1.8-2.4) mg/dL Ferritin (8-388) ng/ml Total Bilirubin (0.2-1.0) mg/dL AST (15-37) U/L ALT (12-78) U/L Alkaline Phosphatase (46-116) U/L Lactate Dehydrogenase (82-234) U/L Total Protein (6.4-8.2) g/dL Albumin (3.4-5.0) g/dL Globulin (2.3-3.5) g/dL Albumin/Globulin Ratio (1.2-2.2) Vitamin B12 (193-986) pg/ml Urine Color Yellow (YELLOW) Urine Appearance Slightly cloudy A (CLEAR) Urine pH 6.0 (5.0-8.0) Ur Specific [place] 1.015 (1.008-1.030) Urine Protein Negative (NEGATIVE) mg/dL Urine Glucose (UA) Negative (NEGATIVE) mg/dL Urine Ketones Negative (NEGATIVE) mg/dL Urine Occult Blood Negative (NEGATIVE) Urine Nitrite Negative (NEGATIVE) Urine Bilirubin Negative (NEGATIVE) Urine Urobilinogen 0.2 (0.2-1.0) EU/dL Ur Leukocyte Esterase Small H (NEGATIVE) Urine RBC 0-5 (0-5) Urine WBC 20-30 H (0-5) Ur Epithelial Cells Many Amorphous Sediment Not seen Urine Bacteria Many Urine Mucus Few Urine Other Ur Random Creatinine (20.0-370.0) mg/dL U Random Total Protein (6.0-11.9) mg/dL Protein/Creatinin Ratio (21.0-161.0) mg/g Membrane Rupture (NEGATIVE) Urine Opiates Screen Negative (NEGATIVE) Ur Oxycodone Screen Negative (NEGATIVE) Urine Methadone Screen Negative (NEGATIVE) Ur Propoxyphene Screen Negative (NEGATIVE) Ur Barbiturates Screen Negative (NEGATIVE) Ur Tricyclics Screen Negative (NEGATIVE) Ur Phencyclidine Scrn Negative (NEGATIVE) Ur Amphetamine Screen Negative (NEGATIVE) U Methamphetamines Scrn Presumptive positive H (NEGATIVE) Urine MDMA Screen Negative (NEGATIVE) U Benzodiazepines Scrn Negative (NEGATIVE) U Cocaine Metab Screen Negative (NEGATIVE) U Marijuana (THC) Screen Negative (NEGATIVE) HIV-1 Ab Rapid Screen (NON-REACT.) Blood Type Gel Antibody Screen Crossmatch 04/28/19 04/28/19 04/28/19 Range/Units 08:47 08:47 09:51 WBC (4.5-11.0) K/uL RBC (3.30-5.50) M/uL Hgb (12.0-15.0) g/dL Hct (36.0-48.0) % MCV (80-98) fL MCH (27-31) pg MCHC (32-36) % Plt Count (150-400) K/uL Neut % (Auto) (36-66) % Lymph % (Auto) (24-44) % [place] % (Auto) (2-6) % Eos % (Auto) (2-4) % Baso % (Auto) (0-1) % Puncture Site ABG pH (7.350-7.450) ABG pCO2 (35.0-42.0) mmHg ABG pO2 (75.0-100.0) mmHg ABG HCO3 (22.0-26.0) mmol/L ABG Total CO2 (21.0-25.0) mmol/L ABG O2 Saturation (95.0-98.0) % ABG O2 Content (15.0-23.0) %vol ABG Base Excess mm/L ABG Hemoglobin (12.0-16.0) g/dL ABG Oxyhemoglobin % ABG Carboxyhemoglobin (0.0-1.6) % ABG Methemoglobin % Kavin Test O2 Delivery Device Oxygen Flow Rate L Sodium (140-148) mmol/L Potassium (3.6-5.2) mmol/L Chloride (100-108) mmol/L Carbon Dioxide (21-32) mmol/L Anion Gap (5.0-14.0) mmol/L BUN (7-18) mg/dL Creatinine (0.6-1.0) mg/dL Est Cr Clr Drug Dosing Estimated GFR (MDRD) (>60) Glucose (74-106) mg/dL Uric Acid (2.6-6.2) mg/dL Calcium (8.5-10.1) mg/dL Phosphorus (2.5-4.9) mg/dL Magnesium (1.8-2.4) mg/dL Ferritin (8-388) ng/ml Total Bilirubin (0.2-1.0) mg/dL AST (15-37) U/L ALT (12-78) U/L Alkaline Phosphatase (46-116) U/L Lactate Dehydrogenase (82-234) U/L Total Protein (6.4-8.2) g/dL Albumin (3.4-5.0) g/dL Globulin (2.3-3.5) g/dL Albumin/Globulin Ratio (1.2-2.2) Vitamin B12 (193-986) pg/ml Urine Color (YELLOW) Urine Appearance (CLEAR) Urine pH (5.0-8.0) Ur Specific [place] (1.008-1.030) Urine Protein (NEGATIVE) mg/dL Urine Glucose (UA) (NEGATIVE) mg/dL Urine Ketones (NEGATIVE) mg/dL Urine Occult Blood (NEGATIVE) Urine Nitrite (NEGATIVE) Urine Bilirubin (NEGATIVE) Urine Urobilinogen (0.2-1.0) EU/dL Ur Leukocyte Esterase (NEGATIVE) Urine RBC (0-5) Urine WBC (0-5) Ur Epithelial Cells Amorphous Sediment Urine Bacteria Urine Mucus Urine Other Ur Random Creatinine 43.2 (20.0-370.0) mg/dL U Random Total Protein 12.3 H (6.0-11.9) mg/dL Protein/Creatinin Ratio 284.7 H (21.0-161.0) mg/g Membrane Rupture Negative (NEGATIVE) Urine Opiates Screen (NEGATIVE) Ur Oxycodone Screen (NEGATIVE) Urine Methadone Screen (NEGATIVE) Ur Propoxyphene Screen (NEGATIVE) Ur Barbiturates Screen (NEGATIVE) Ur Tricyclics Screen (NEGATIVE) Ur Phencyclidine Scrn (NEGATIVE) Ur Amphetamine Screen (NEGATIVE) U Methamphetamines Scrn (NEGATIVE) Urine MDMA Screen (NEGATIVE) U Benzodiazepines Scrn (NEGATIVE) U Cocaine Metab Screen (NEGATIVE) U Marijuana (THC) Screen (NEGATIVE) HIV-1 Ab Rapid Screen (NON-REACT.) Blood Type O POSITIVE Gel Antibody Screen Negative Crossmatch See Detail 04/28/19 04/28/19 04/28/19 Range/Units 10:00 10:00 10:00 WBC 7.7 (4.5-11.0) K/uL RBC 4.69 (3.30-5.50) M/uL Hgb 8.5 L (12.0-15.0) g/dL Hct 30.0 L (36.0-48.0) % MCV 64 L (80-98) fL MCH 18 L (27-31) pg MCHC 28 L (32-36) % Plt Count 342 (150-400) K/uL Neut % (Auto) 61 (36-66) % Lymph % (Auto) 35 (24-44) % [place] % (Auto) 3 (2-6) % Eos % (Auto) 1 L (2-4) % Baso % (Auto) 0 (0-1) % Puncture Site ABG pH (7.350-7.450) ABG pCO2 (35.0-42.0) mmHg ABG pO2 (75.0-100.0) mmHg ABG HCO3 (22.0-26.0) mmol/L ABG Total CO2 (21.0-25.0) mmol/L ABG O2 Saturation (95.0-98.0) % ABG O2 Content (15.0-23.0) %vol ABG Base Excess mm/L ABG Hemoglobin (12.0-16.0) g/dL ABG Oxyhemoglobin % ABG Carboxyhemoglobin (0.0-1.6) % ABG Methemoglobin % Kavin Test O2 Delivery Device Oxygen Flow Rate L Sodium 135 L (140-148) mmol/L Potassium 4.2 (3.6-5.2) mmol/L Chloride 103 (100-108) mmol/L Carbon Dioxide 21 (21-32) mmol/L Anion Gap 15.2 H (5.0-14.0) mmol/L BUN 7 (7-18) mg/dL Creatinine 0.6 (0.6-1.0) mg/dL Est Cr Clr Drug Dosing TNP Estimated GFR (MDRD) > 60 (>60) Glucose 76 (74-106) mg/dL Uric Acid (2.6-6.2) mg/dL Calcium 7.9 L (8.5-10.1) mg/dL Phosphorus (2.5-4.9) mg/dL Magnesium (1.8-2.4) mg/dL Ferritin (8-388) ng/ml Total Bilirubin 0.1 L D (0.2-1.0) mg/dL AST 10 L D (15-37) U/L ALT 9 L (12-78) U/L Alkaline Phosphatase 174 H (46-116) U/L Lactate Dehydrogenase 106 (82-234) U/L Total Protein 6.4 (6.4-8.2) g/dL Albumin 2.0 L (3.4-5.0) g/dL Globulin 4.4 H (2.3-3.5) g/dL Albumin/Globulin Ratio 0.5 L (1.2-2.2) Vitamin B12 (193-986) pg/ml Urine Color (YELLOW) Urine Appearance (CLEAR) Urine pH (5.0-8.0) Ur Specific [place] (1.008-1.030) Urine Protein (NEGATIVE) mg/dL Urine Glucose (UA) (NEGATIVE) mg/dL Urine Ketones (NEGATIVE) mg/dL Urine Occult Blood (NEGATIVE) Urine Nitrite (NEGATIVE) Urine Bilirubin (NEGATIVE) Urine Urobilinogen (0.2-1.0) EU/dL Ur Leukocyte Esterase (NEGATIVE) Urine RBC (0-5) Urine WBC (0-5) Ur Epithelial Cells Amorphous Sediment Urine Bacteria Urine Mucus Urine Other Ur Random Creatinine (20.0-370.0) mg/dL U Random Total Protein (6.0-11.9) mg/dL Protein/Creatinin Ratio (21.0-161.0) mg/g Membrane Rupture (NEGATIVE) Urine Opiates Screen (NEGATIVE) Ur Oxycodone Screen (NEGATIVE) Urine Methadone Screen (NEGATIVE) Ur Propoxyphene Screen (NEGATIVE) Ur Barbiturates Screen (NEGATIVE) Ur Tricyclics Screen (NEGATIVE) Ur Phencyclidine Scrn (NEGATIVE) Ur Amphetamine Screen (NEGATIVE) U Methamphetamines Scrn (NEGATIVE) Urine MDMA Screen (NEGATIVE) U Benzodiazepines Scrn (NEGATIVE) U Cocaine Metab Screen (NEGATIVE) U Marijuana (THC) Screen (NEGATIVE) HIV-1 Ab Rapid Screen Non-reactive (NON-REACT.) Blood Type Gel Antibody Screen Crossmatch 04/28/19 04/28/19 04/28/19 Range/Units 12:37 13:18 13:18 WBC 19.0 H (4.5-11.0) K/uL RBC 4.63 (3.30-5.50) M/uL Hgb 8.3 L (12.0-15.0) g/dL Hct 29.9 L (36.0-48.0) % MCV 65 L (80-98) fL MCH 18 L (27-31) pg MCHC 28 L (32-36) % Plt Count 303 (150-400) K/uL Neut % (Auto) (36-66) % Lymph % (Auto) (24-44) % [place] % (Auto) (2-6) % Eos % (Auto) (2-4) % Baso % (Auto) (0-1) % Puncture Site Rt radial ABG pH 7.336 L (7.350-7.450) ABG pCO2 37.0 (35.0-42.0) mmHg ABG pO2 105.0 H (75.0-100.0) mmHg ABG HCO3 19.3 L (22.0-26.0) mmol/L ABG Total CO2 18.5 L (21.0-25.0) mmol/L ABG O2 Saturation 97.6 (95.0-98.0) % ABG O2 Content 11.5 L (15.0-23.0) %vol ABG Base Excess -5.5 mm/L ABG Hemoglobin 8.6 L (12.0-16.0) g/dL ABG Oxyhemoglobin 94.3 % ABG Carboxyhemoglobin 2.4 H (0.0-1.6) % ABG Methemoglobin 1.0 % Kavin Test Passed O2 Delivery Device Nasal cannula Oxygen Flow Rate 4 L Sodium (140-148) mmol/L Potassium (3.6-5.2) mmol/L Chloride (100-108) mmol/L Carbon Dioxide (21-32) mmol/L Anion Gap (5.0-14.0) mmol/L BUN (7-18) mg/dL Creatinine (0.6-1.0) mg/dL Est Cr Clr Drug Dosing Estimated GFR (MDRD) (>60) Glucose (74-106) mg/dL Uric Acid (2.6-6.2) mg/dL Calcium (8.5-10.1) mg/dL Phosphorus (2.5-4.9) mg/dL Magnesium (1.8-2.4) mg/dL Ferritin (8-388) ng/ml Total Bilirubin (0.2-1.0) mg/dL AST (15-37) U/L ALT (12-78) U/L Alkaline Phosphatase (46-116) U/L Lactate Dehydrogenase (82-234) U/L Total Protein (6.4-8.2) g/dL Albumin (3.4-5.0) g/dL Globulin (2.3-3.5) g/dL Albumin/Globulin Ratio (1.2-2.2) Vitamin B12 (193-986) pg/ml Urine Color (YELLOW) Urine Appearance (CLEAR) Urine pH (5.0-8.0) Ur Specific [place] (1.008-1.030) Urine Protein (NEGATIVE) mg/dL Urine Glucose (UA) (NEGATIVE) mg/dL Urine Ketones (NEGATIVE) mg/dL Urine Occult Blood (NEGATIVE) Urine Nitrite (NEGATIVE) Urine Bilirubin (NEGATIVE) Urine Urobilinogen (0.2-1.0) EU/dL Ur Leukocyte Esterase (NEGATIVE) Urine RBC (0-5) Urine WBC (0-5) Ur Epithelial Cells Amorphous Sediment Urine Bacteria Urine Mucus Urine Other Ur Random Creatinine (20.0-370.0) mg/dL U Random Total Protein (6.0-11.9) mg/dL Protein/Creatinin Ratio (21.0-161.0) mg/g Membrane Rupture (NEGATIVE) Urine Opiates Screen Negative (NEGATIVE) Ur Oxycodone Screen Negative (NEGATIVE) Urine Methadone Screen Negative (NEGATIVE) Ur Propoxyphene Screen Negative (NEGATIVE) Ur Barbiturates Screen Negative (NEGATIVE) Ur Tricyclics Screen Negative (NEGATIVE) Ur Phencyclidine Scrn Negative (NEGATIVE) Ur Amphetamine Screen Negative (NEGATIVE) U Methamphetamines Scrn Positive H (NEGATIVE) Urine MDMA Screen Negative (NEGATIVE) U Benzodiazepines Scrn Negative (NEGATIVE) U Cocaine Metab Screen Negative (NEGATIVE) U Marijuana (THC) Screen Negative (NEGATIVE) HIV-1 Ab Rapid Screen (NON-REACT.) Blood Type Gel Antibody Screen Crossmatch 04/28/19 04/28/19 04/28/19 Range/Units 14:09 17:00 17:00 WBC 13.8 H (4.5-11.0) K/uL RBC 4.55 (3.30-5.50) M/uL Hgb 8.5 L (12.0-15.0) g/dL Hct 29.2 L (36.0-48.0) % MCV 64 L (80-98) fL MCH 19 L (27-31) pg MCHC 29 L (32-36) % Plt Count 274 (150-400) K/uL Neut % (Auto) 82 H (36-66) % Lymph % (Auto) 14 L (24-44) % [place] % (Auto) 4 (2-6) % Eos % (Auto) 0 L (2-4) % Baso % (Auto) 0 (0-1) % Puncture Site Lt.radial ABG pH 7.377 (7.350-7.450) ABG pCO2 36.9 (35.0-42.0) mmHg ABG pO2 89.9 (75.0-100.0) mmHg ABG HCO3 21.2 L (22.0-26.0) mmol/L ABG Total CO2 20.1 L (21.0-25.0) mmol/L ABG O2 Saturation 97.0 (95.0-98.0) % ABG O2 Content 11.4 L (15.0-23.0) %vol ABG Base Excess -3.1 mm/L ABG Hemoglobin 8.5 L (12.0-16.0) g/dL ABG Oxyhemoglobin 94.3 % ABG Carboxyhemoglobin 1.9 H (0.0-1.6) % ABG Methemoglobin 0.9 % Kavin Test Passed O2 Delivery Device Nasal cannula Oxygen Flow Rate 1 L Sodium (140-148) mmol/L Potassium (3.6-5.2) mmol/L Chloride (100-108) mmol/L Carbon Dioxide (21-32) mmol/L Anion Gap (5.0-14.0) mmol/L BUN (7-18) mg/dL Creatinine (0.6-1.0) mg/dL Est Cr Clr Drug Dosing Estimated GFR (MDRD) (>60) Glucose (74-106) mg/dL Uric Acid (2.6-6.2) mg/dL Calcium (8.5-10.1) mg/dL Phosphorus (2.5-4.9) mg/dL Magnesium 1.5 L (1.8-2.4) mg/dL Ferritin (8-388) ng/ml Total Bilirubin (0.2-1.0) mg/dL AST (15-37) U/L ALT (12-78) U/L Alkaline Phosphatase (46-116) U/L Lactate Dehydrogenase (82-234) U/L Total Protein (6.4-8.2) g/dL Albumin (3.4-5.0) g/dL Globulin (2.3-3.5) g/dL Albumin/Globulin Ratio (1.2-2.2) Vitamin B12 (193-986) pg/ml Urine Color (YELLOW) Urine Appearance (CLEAR) Urine pH (5.0-8.0) Ur Specific [place] (1.008-1.030) Urine Protein (NEGATIVE) mg/dL Urine Glucose (UA) (NEGATIVE) mg/dL Urine Ketones (NEGATIVE) mg/dL Urine Occult Blood (NEGATIVE) Urine Nitrite (NEGATIVE) Urine Bilirubin (NEGATIVE) Urine Urobilinogen (0.2-1.0) EU/dL Ur Leukocyte Esterase (NEGATIVE) Urine RBC (0-5) Urine WBC (0-5) Ur Epithelial Cells Amorphous Sediment Urine Bacteria Urine Mucus Urine Other Ur Random Creatinine (20.0-370.0) mg/dL U Random Total Protein (6.0-11.9) mg/dL Protein/Creatinin Ratio (21.0-161.0) mg/g Membrane Rupture (NEGATIVE) Urine Opiates Screen (NEGATIVE) Ur Oxycodone Screen (NEGATIVE) Urine Methadone Screen (NEGATIVE) Ur Propoxyphene Screen (NEGATIVE) Ur Barbiturates Screen (NEGATIVE) Ur Tricyclics Screen (NEGATIVE) Ur Phencyclidine Scrn (NEGATIVE) Ur Amphetamine Screen (NEGATIVE) U Methamphetamines Scrn (NEGATIVE) Urine MDMA Screen (NEGATIVE) U Benzodiazepines Scrn (NEGATIVE) U Cocaine Metab Screen (NEGATIVE) U Marijuana (THC) Screen (NEGATIVE) HIV-1 Ab Rapid Screen (NON-REACT.) Blood Type Gel Antibody Screen Crossmatch 04/28/19 04/28/19 04/29/19 Range/Units 17:00 21:00 01:00 WBC (4.5-11.0) K/uL RBC (3.30-5.50) M/uL Hgb (12.0-15.0) g/dL Hct (36.0-48.0) % MCV (80-98) fL MCH (27-31) pg MCHC (32-36) % Plt Count (150-400) K/uL Neut % (Auto) (36-66) % Lymph % (Auto) (24-44) % [place] % (Auto) (2-6) % Eos % (Auto) (2-4) % Baso % (Auto) (0-1) % Puncture Site ABG pH (7.350-7.450) ABG pCO2 (35.0-42.0) mmHg ABG pO2 (75.0-100.0) mmHg ABG HCO3 (22.0-26.0) mmol/L ABG Total CO2 (21.0-25.0) mmol/L ABG O2 Saturation (95.0-98.0) % ABG O2 Content (15.0-23.0) %vol ABG Base Excess mm/L ABG Hemoglobin (12.0-16.0) g/dL ABG Oxyhemoglobin % ABG Carboxyhemoglobin (0.0-1.6) % ABG Methemoglobin % Kavin Test O2 Delivery Device Oxygen Flow Rate L Sodium 134 L (140-148) mmol/L Potassium 4.1 (3.6-5.2) mmol/L Chloride 104 (100-108) mmol/L Carbon Dioxide 21 (21-32) mmol/L Anion Gap 13.1 (5.0-14.0) mmol/L BUN 6 L (7-18) mg/dL Creatinine 0.6 (0.6-1.0) mg/dL Est Cr Clr Drug Dosing TNP Estimated GFR (MDRD) > 60 (>60) Glucose 86 (74-106) mg/dL Uric Acid (2.6-6.2) mg/dL Calcium 7.9 L (8.5-10.1) mg/dL Phosphorus (2.5-4.9) mg/dL Magnesium 5.0 H D 4.8 H 4.3 H (1.8-2.4) mg/dL Ferritin (8-388) ng/ml Total Bilirubin 0.2 D (0.2-1.0) mg/dL AST 20 D (15-37) U/L ALT 10 L (12-78) U/L Alkaline Phosphatase 175 H (46-116) U/L Lactate Dehydrogenase 219 (82-234) U/L Total Protein 6.2 L (6.4-8.2) g/dL Albumin 1.9 L (3.4-5.0) g/dL Globulin 4.3 H (2.3-3.5) g/dL Albumin/Globulin Ratio 0.4 L (1.2-2.2) Vitamin B12 (193-986) pg/ml Urine Color (YELLOW) Urine Appearance (CLEAR) Urine pH (5.0-8.0) Ur Specific [place] (1.008-1.030) Urine Protein (NEGATIVE) mg/dL Urine Glucose (UA) (NEGATIVE) mg/dL Urine Ketones (NEGATIVE) mg/dL Urine Occult Blood (NEGATIVE) Urine Nitrite (NEGATIVE) Urine Bilirubin (NEGATIVE) Urine Urobilinogen (0.2-1.0) EU/dL Ur Leukocyte Esterase (NEGATIVE) Urine RBC (0-5) Urine WBC (0-5) Ur Epithelial Cells Amorphous Sediment Urine Bacteria Urine Mucus Urine Other Ur Random Creatinine (20.0-370.0) mg/dL U Random Total Protein (6.0-11.9) mg/dL Protein/Creatinin Ratio (21.0-161.0) mg/g Membrane Rupture (NEGATIVE) Urine Opiates Screen (NEGATIVE) Ur Oxycodone Screen (NEGATIVE) Urine Methadone Screen (NEGATIVE) Ur Propoxyphene Screen (NEGATIVE) Ur Barbiturates Screen (NEGATIVE) Ur Tricyclics Screen (NEGATIVE) Ur Phencyclidine Scrn (NEGATIVE) Ur Amphetamine Screen (NEGATIVE) U Methamphetamines Scrn (NEGATIVE) Urine MDMA Screen (NEGATIVE) U Benzodiazepines Scrn (NEGATIVE) U Cocaine Metab Screen (NEGATIVE) U Marijuana (THC) Screen (NEGATIVE) HIV-1 Ab Rapid Screen (NON-REACT.) Blood Type Gel Antibody Screen Crossmatch 04/29/19 04/29/19 04/29/19 Range/Units 05:00 05:00 05:00 WBC 8.5 (4.5-11.0) K/uL RBC 4.31 (3.30-5.50) M/uL Hgb 8.0 L (12.0-15.0) g/dL Hct 27.8 L (36.0-48.0) % MCV 65 L (80-98) fL MCH 19 L (27-31) pg MCHC 29 L (32-36) % Plt Count 248 (150-400) K/uL Neut % (Auto) (36-66) % Lymph % (Auto) (24-44) % [place] % (Auto) (2-6) % Eos % (Auto) (2-4) % Baso % (Auto) (0-1) % Puncture Site ABG pH (7.350-7.450) ABG pCO2 (35.0-42.0) mmHg ABG pO2 (75.0-100.0) mmHg ABG HCO3 (22.0-26.0) mmol/L ABG Total CO2 (21.0-25.0) mmol/L ABG O2 Saturation (95.0-98.0) % ABG O2 Content (15.0-23.0) %vol ABG Base Excess mm/L ABG Hemoglobin (12.0-16.0) g/dL ABG Oxyhemoglobin % ABG Carboxyhemoglobin (0.0-1.6) % ABG Methemoglobin % Kavin Test O2 Delivery Device Oxygen Flow Rate L Sodium 134 L (140-148) mmol/L Potassium 4.4 (3.6-5.2) mmol/L Chloride 103 (100-108) mmol/L Carbon Dioxide 22 (21-32) mmol/L Anion Gap 13.4 (5.0-14.0) mmol/L BUN 4 L (7-18) mg/dL Creatinine 0.7 (0.6-1.0) mg/dL Est Cr Clr Drug Dosing 92.10 Estimated GFR (MDRD) > 60 (>60) Glucose 94 (74-106) mg/dL Uric Acid (2.6-6.2) mg/dL Calcium 6.9 L* (8.5-10.1) mg/dL Phosphorus 3.0 (2.5-4.9) mg/dL Magnesium 4.5 H (1.8-2.4) mg/dL Ferritin (8-388) ng/ml Total Bilirubin 0.2 (0.2-1.0) mg/dL AST 22 (15-37) U/L ALT 12 (12-78) U/L Alkaline Phosphatase 161 H (46-116) U/L Lactate Dehydrogenase 226 (82-234) U/L Total Protein 5.8 L (6.4-8.2) g/dL Albumin 1.8 L (3.4-5.0) g/dL Globulin 4.0 H (2.3-3.5) g/dL Albumin/Globulin Ratio 0.5 L (1.2-2.2) Vitamin B12 184 L (193-986) pg/ml Urine Color (YELLOW) Urine Appearance (CLEAR) Urine pH (5.0-8.0) Ur Specific [place] (1.008-1.030) Urine Protein (NEGATIVE) mg/dL Urine Glucose (UA) (NEGATIVE) mg/dL Urine Ketones (NEGATIVE) mg/dL Urine Occult Blood (NEGATIVE) Urine Nitrite (NEGATIVE) Urine Bilirubin (NEGATIVE) Urine Urobilinogen (0.2-1.0) EU/dL Ur Leukocyte Esterase (NEGATIVE) Urine RBC (0-5) Urine WBC (0-5) Ur Epithelial Cells Amorphous Sediment Urine Bacteria Urine Mucus Urine Other Ur Random Creatinine (20.0-370.0) mg/dL U Random Total Protein (6.0-11.9) mg/dL Protein/Creatinin Ratio (21.0-161.0) mg/g Membrane Rupture (NEGATIVE) Urine Opiates Screen (NEGATIVE) Ur Oxycodone Screen (NEGATIVE) Urine Methadone Screen (NEGATIVE) Ur Propoxyphene Screen (NEGATIVE) Ur Barbiturates Screen (NEGATIVE) Ur Tricyclics Screen (NEGATIVE) Ur Phencyclidine Scrn (NEGATIVE) Ur Amphetamine Screen (NEGATIVE) U Methamphetamines Scrn (NEGATIVE) Urine MDMA Screen (NEGATIVE) U Benzodiazepines Scrn (NEGATIVE) U Cocaine Metab Screen (NEGATIVE) U Marijuana (THC) Screen (NEGATIVE) HIV-1 Ab Rapid Screen (NON-REACT.) Blood Type Gel Antibody Screen Crossmatch 04/29/19 Range/Units 05:00 WBC (4.5-11.0) K/uL RBC (3.30-5.50) M/uL Hgb (12.0-15.0) g/dL Hct (36.0-48.0) % MCV (80-98) fL MCH (27-31) pg MCHC (32-36) % Plt Count (150-400) K/uL Neut % (Auto) (36-66) % Lymph % (Auto) (24-44) % [place] % (Auto) (2-6) % Eos % (Auto) (2-4) % Baso % (Auto) (0-1) % Puncture Site ABG pH (7.350-7.450) ABG pCO2 (35.0-42.0) mmHg ABG pO2 (75.0-100.0) mmHg ABG HCO3 (22.0-26.0) mmol/L ABG Total CO2 (21.0-25.0) mmol/L ABG O2 Saturation (95.0-98.0) % ABG O2 Content (15.0-23.0) %vol ABG Base Excess mm/L ABG Hemoglobin (12.0-16.0) g/dL ABG Oxyhemoglobin % ABG Carboxyhemoglobin (0.0-1.6) % ABG Methemoglobin % Kavin Test O2 Delivery Device Oxygen Flow Rate L Sodium (140-148) mmol/L Potassium (3.6-5.2) mmol/L Chloride (100-108) mmol/L Carbon Dioxide (21-32) mmol/L Anion Gap (5.0-14.0) mmol/L BUN (7-18) mg/dL Creatinine (0.6-1.0) mg/dL Est Cr Clr Drug Dosing Estimated GFR (MDRD) (>60) Glucose (74-106) mg/dL Uric Acid (2.6-6.2) mg/dL Calcium (8.5-10.1) mg/dL Phosphorus (2.5-4.9) mg/dL Magnesium (1.8-2.4) mg/dL Ferritin 8 (8-388) ng/ml Total Bilirubin (0.2-1.0) mg/dL AST (15-37) U/L ALT (12-78) U/L Alkaline Phosphatase (46-116) U/L Lactate Dehydrogenase (82-234) U/L Total Protein (6.4-8.2) g/dL Albumin (3.4-5.0) g/dL Globulin (2.3-3.5) g/dL Albumin/Globulin Ratio (1.2-2.2) Vitamin B12 (193-986) pg/ml Urine Color (YELLOW) Urine Appearance (CLEAR) Urine pH (5.0-8.0) Ur Specific [place] (1.008-1.030) Urine Protein (NEGATIVE) mg/dL Urine Glucose (UA) (NEGATIVE) mg/dL Urine Ketones (NEGATIVE) mg/dL Urine Occult Blood (NEGATIVE) Urine Nitrite (NEGATIVE) Urine Bilirubin (NEGATIVE) Urine Urobilinogen (0.2-1.0) EU/dL Ur Leukocyte Esterase (NEGATIVE) Urine RBC (0-5) Urine WBC (0-5) Ur Epithelial Cells Amorphous Sediment Urine Bacteria Urine Mucus Urine Other Ur Random Creatinine (20.0-370.0) mg/dL U Random Total Protein (6.0-11.9) mg/dL Protein/Creatinin Ratio (21.0-161.0) mg/g Membrane Rupture (NEGATIVE) Urine Opiates Screen (NEGATIVE) Ur Oxycodone Screen (NEGATIVE) Urine Methadone Screen (NEGATIVE) Ur Propoxyphene Screen (NEGATIVE) Ur Barbiturates Screen (NEGATIVE) Ur Tricyclics Screen (NEGATIVE) Ur Phencyclidine Scrn (NEGATIVE) Ur Amphetamine Screen (NEGATIVE) U Methamphetamines Scrn (NEGATIVE) Urine MDMA Screen (NEGATIVE) U Benzodiazepines Scrn (NEGATIVE) U Cocaine Metab Screen (NEGATIVE) U Marijuana (THC) Screen (NEGATIVE) HIV-1 Ab Rapid Screen (NON-REACT.) Blood Type Gel Antibody Screen Crossmatch Micro Results - Last 24 Hours: Microbiology 04/28/19 09:52 Wet Prep - Final Vagina Med Orders - Current: Current Medications Calcium Gluconate (Calcium Gluconate) 1 gm IVPUSH ONETIME PRN PRN Reason: MAGNESIUM TOXICITY Cyanocobalamin (Vitamin B12) 1,000 mcg IM DAILY [facility] Stop: 04/30/19 09:01 Hydromorphone HCl (Dilaudid Dance Professor 15 Mg In Ns 30 Ml) 0 mg IV ASDIRECTED PRN; Protocol PRN Reason: Pain Last Admin: 04/28/19 15:28 Dose: 15 mg Hydroxyzine HCl (Vistaril) 100 mg IM Q4H PRN PRN Reason: PAIN Metronidazole 500 mg/ Premix 100 mls @ 100 mls/hr IV Q8H [facility] Stop: 04/29/19 16:29 Last Admin: 04/28/19 22:55 Dose: 100 mls/hr Magnesium Sulfate (Magnesium Sulfate In Water Premix) 40 gm in 1,000 mls @ 0 mls/hr IV ASDIRECTED [facility] Stop: 04/29/19 14:30 Last Infusion: 04/29/19 07:26 Dose: 12 mls/hr Cefoxitin Sodium 2 gm/ Sodium (Chloride) 50 mls @ 100 mls/hr IV Q6H [facility] Last Admin: 04/29/19 05:18 Dose: 100 mls/hr Sodium Chloride (Normal Saline) 1,000 mls @ 75 mls/hr IV ASDIRECTED [facility] Multivitamins/Minerals 10 ml/Chromium/Copper/Manganese/Seleni/Zn 1 ml/ Thiamine HCl 100 mg/ Sodium Chloride 1,012 mls @ 75 mls/hr IV Q13H [facility] Stop: 04/30/19 10:59 Ferric Sodium Gluconate Complex 250 mg/ Sodium Chloride 120 mls @ 50 mls/hr IV ASDIRECTED [facility] Labetalol HCl (Normodyne) 5 - 10 mg IV Q1H PRN PRN Reason: FOR SBP >/= 160 OR DBP > 95 Lorazepam (Ativan) 1 mg IVPUSH Q2H PRN PRN Reason: Anxiety Naloxone HCl (Narcan) 0.1 mg IVPUSH Q2M PRN PRN Reason: Respiratory Distress Ondansetron HCl (Zofran) 4 mg IVPUSH Q4H PRN PRN Reason: Nausea Sodium Chloride (Saline Flush) 10 ml FLUSH ASDIRECTED PRN PRN Reason: Keep Vein Open Discontinued Medications Cefoxitin Sodium (Mefoxin) Confirm Administered Dose 1 gm .ROUTE .STK-MED ONE Stop: 04/28/19 11:08 Last Admin: 04/28/19 12:55 Dose: 1 gm Cefoxitin Sodium (Mefoxin) Confirm Administered Dose 2 gm .ROUTE .STK-MED ONE Stop: 04/28/19 12:11 Ephedrine Sulfate (Ephedrine Sulfate) Confirm Administered Dose 50 mg .ROUTE .STK-MED ONE Stop: 04/28/19 12:16 Fentanyl (Sublimaze) Confirm Administered Dose 250 mcg .ROUTE .STK-MED ONE Stop: 04/28/19 13:35 Lactated Ringer's (Ringers, Lactated) 1,000 mls @ 999 mls/hr IV BOLUS ONE Stop: 04/28/19 09:16 Last Admin: 04/28/19 08:27 Dose: 999 mls/hr Lactated Ringer's (Ringers, Lactated) 1,000 mls @ 100 mls/hr IV ASDIRECTED GLADYS Last Admin: 04/28/19 09:30 Dose: 100 mls/hr Lactated Ringer's (Ringers, Lactated) Confirm Administered Dose 1,000 mls @ as directed .ROUTE .STK-MED ONE Stop: 04/28/19 12:12 Ceftriaxone Sodium 2 gm/ (Sodium Chloride) 50 mls @ 100 mls/hr IV ONETIME ONE Stop: 04/28/19 14:59 Last Admin: 04/28/19 14:25 Dose: 100 mls/hr Azithromycin 1,000 mg/ Sodium (Chloride) 500 mls @ 250 mls/hr IV ONETIME ONE Stop: 04/28/19 18:29 Last Admin: 04/28/19 16:57 Dose: 250 mls/hr Oxytocin/Sodium Chloride (Pitocin In Ns 20 Units/1,000 Ml) 20 unit in 1,000 mls @ 100 mls/hr IV TITRATE [facility] Stop: 04/29/19 00:59 Last Admin: 04/28/19 15:03 Dose: 100 mls/hr Sodium Chloride (Normal Saline) 1,000 mls @ 100 mls/hr IV ASDIRECTED [facility] Labetalol HCl (Normodyne) Confirm Administered Dose 20 mg .ROUTE .STK-MED ONE Stop: 04/28/19 12:41 Midazolam HCl (Versed 1 Mg/Ml) Confirm Administered Dose 2 mg .ROUTE .STK-MED ONE Stop: 04/28/19 12:23 Oxytocin (Pitocin) Confirm Administered Dose 10 unit .ROUTE .STK-MED ONE Stop: 04/28/19 11:08 Last Admin: 04/28/19 12:25 Dose: 10 unit Oxytocin (Pitocin) Confirm Administered Dose 20 unit .ROUTE .STK-MED ONE Stop: 04/28/19 12:11 Propofol (Diprivan 20 Ml) Confirm Administered Dose 200 mg .ROUTE .STK-MED ONE Stop: 04/28/19 12:34 Rocuronium [place] (Zemuron) Confirm Administered Dose 50 mg .ROUTE .STK-MED ONE Stop: 04/28/19 12:31 Sugammadex Sodium (Bridion) Confirm Administered Dose 200 mg .ROUTE .STK-MED ONE Stop: 04/28/19 12:50 - Interaction Infant Disposition, : transfered Infant Interaction: Other (see below) - Recovery Exam Fundal Tone: Firm Fundal Level: At Umbilicus Fundal Placement: Midline Lochia Amount: Small Lochia Color: Serosa/[place] Perineum Description: Intact, Minimal Bruising/Swelling Episiotomy/Laceration: Approximated Bladder Status: Indwelling Catheter in Place Urinary Elimination: Indwelling Catheter - Exam Quality Assessment: Urine Catheter, DVT Prophylaxis General: Alert, Oriented HEENT: Pupils Equal, Pupils Reactive, EOMI, Mucous Membr. Moist/[place] Neck: Supple Lungs: Clear to Auscultation, Normal Respiratory Effort Cardiovascular: Regular Rate, Regular Rhythm, No Murmurs GI/Abdominal Exam: Normal Bowel Sounds, Soft, Non-Tender, No Organomegaly, No Distention, No Abnormal Bruit, No Mass, Pelvis Stable Extremities: Normal Inspection, Normal Range of Motion, Non-Tender, No Pedal Edema, Normal Capillary Refill Skin: Warm, Dry, Intact Wound/Incisions: Healing Well Neurological: No New Focal Deficit, Reflexes Equal Bilateral, Sensation Intact Psy/Mental Status: Alert, Normal Affect, Normal Mood, Depressed - Problem List & Annotations (1) Drug use affecting in third trimester SNOMED Code(s): 99910513, 56080487, 648540031 Code(s): O99.323 - DRUG USE COMPLICATING , THIRD TRIMESTER Status : Acute Priority: High Current Visit: Yes (2) labor in third trimester SNOMED Code(s): 5532233 Code(s): O60.03 - LABOR WITHOUT DELIVERY, THIRD TRIMESTER Status: Acute Priority: High Current Visit: Yes (3) Insufficient care in third trimester SNOMED Code(s): 2744342041955, 5442861648209 Code(s): O09.33 - SUPRVSN OF PREG W INSUFFICIENT ANTENAT CARE, THIRD TRIMESTER Status: Acute Current Visit: Yes (4) History of delivery, currently in third trimester SNOMED Code(s): 41977864, 74216874 Code(s): O09.213 - SUPRVSN OF PREG W HISTORY OF PRE-TERM LABOR, THIRD TRIMESTER Status: Acute Current Visit: Yes (5) S/P repeat low transverse SNOMED Code(s): 775110847, 09480061, 842976316, 264487268, 003035518 Code(s): Z98.891 - HISTORY OF UTERINE SCAR FROM PREVIOUS SURGERY Status: Acute Current Visit: Yes (6) History of suicide attempt SNOMED Code(s): 454839755, 858650726 Code(s): Z91.5 - PERSONAL HISTORY OF SELF-HARM Status: Acute Current Visit: Yes (7) SNOMED Code(s): 35460053 Code(s): Z34.90 - ENCNTR FOR SUPRVSN OF NORMAL , UNSP, UNSP TRIMESTER Status: Acute Current Visit: Yes (8) 36 to 37 weeks gestation of SNOMED Code(s): 127108281 Code(s): FLU6006 - Status: Acute Current Visit: Yes (9) Preeclampsia SNOMED Code(s): 128247372 Code(s): O14.90 - UNSPECIFIED PRE-ECLAMPSIA, UNSPECIFIED TRIMESTER Status: Acute Current Visit: Yes (10) Protein in urine SNOMED Code(s): 71487198 Code(s): R80.9 - PROTEINURIA, UNSPECIFIED Status: Acute Current Visit: Yes (11) Tobacco user SNOMED Code(s): 791392875 Code(s): Z72.0 - TOBACCO USE Status: Chronic Priority: Medium Current Visit: No (12) Seizure SNOMED Code(s): 78896083 Code(s): R56.9 - UNSPECIFIED CONVULSIONS Status: Acute Current Visit: Yes (13) Noncompliance SNOMED Code(s): 9939605 Code(s): Z91.19 - PATIENT'S NONCOMPLIANCE W OTH MEDICAL TREATMENT AND REGIMEN Status: Acute Current Visit: Yes (14) Depression SNOMED Code(s): 84899335 Code(s): F32.9 - MAJOR DEPRESSIVE DISORDER, SINGLE EPISODE, UNSPECIFIED Status: Acute Current Visit: Yes (15) High risk due to maternal drug abuse in third trimester SNOMED Code(s): 543300635, 241382843 Code(s): O99.323 - DRUG USE COMPLICATING , THIRD TRIMESTER; F19.10 - OTHER PSYCHOACTIVE SUBSTANCE ABUSE, UNCOMPLICATED Status: Acute Current Visit: Yes - Problem List Review Problem List Initiated/Reviewed/Updated: Yes - My Orders Last 24 Hours: My Active Orders 04/28/19 07:32 OB Check [OM.PC] Click to Edit 04/28/19 08:47 HCV ANTIBODY Urgent TYPE AND SCREEN [BBK] Urgent RED BLOOD CELLS LP [BBK] Routine T PALLIDUM SCREENING CASCADE Routine TYPE AND SCREEN [BBK] Urgent 04/28/19 10:00 HEPATITIS B SURF AB QUANT Urgent 04/28/19 10:10 CHLAMYDIA/GC AMPLIFICATION Urgent CULTURE GROUP B STREP [RM] Routine 04/28/19 11:07 Notify Provider Vital Signs [RC] PRN Notify Provider [RC] PRN Sodium Chloride 0.9% [Saline Flush] 10 ml FLUSH ASDIRECTED PRN DVT/VTE Prophylaxis Reflex [OM.PC] Routine Saline Lock Insert [OM.PC] Routine Resuscitation Status Routine 04/28/19 11:10 Antiembolic Devices [RC] .Routine VTE/DVT Education [RC] Click to Edit 04/28/19 12:37 MISCELLANEOUS REFERENCE TEST Routine 04/28/19 14:30 Magnesium Sulfate/Water [Magnesium Sulfate in Water Premix] 40 gm in 1,000 ml IV ASDIRECTED 04/28/19 15:30 metroNIDAZOLE/Normal Saline [Flagyl 500 MG in NS 100 ML] 500 mg Premix Bag 1 bag IV Q8H 04/28/19 17:17 LORazepam [Ativan] 1 mg IVPUSH Q2H PRN 04/28/19 18:05 Seizure Precautions [OM.PC] Routine 04/28/19 18:12 Communication Order [RC] Q2H 04/28/19 21:35 Communication Order [RC] Click to Edit 04/29/19 07:15 Sodium Chloride 0.9% [Normal Saline] 1,000 ml IV ASDIRECTED 04/29/19 09:00 MAGNESIUM [CHEM] Q4H 04/29/19 13:00 MAGNESIUM [CHEM] Q4H 04/29/19 17:00 LACTATE DEHYDROGENASE,LDH [CHEM] Routine MAGNESIUM [CHEM] Q4H 04/29/19 21:00 MAGNESIUM [CHEM] Q4H 04/30/19 01:00 MAGNESIUM [CHEM] Q4H 04/30/19 05:00 LACTATE DEHYDROGENASE,LDH [CHEM] Routine MAGNESIUM [CHEM] Q4H 04/30/19 09:00 MAGNESIUM [CHEM] Q4H 04/30/19 13:00 MAGNESIUM [CHEM] Q4H 04/30/19 17:00 MAGNESIUM [CHEM] Q4H - Assessment Assessment:: 04/28/2019 Post op via RCS at 36 6/7 weeks gestation G7 now P5 Preeclampsia Positive UDS Insufficient care Seizure during RCS Anemia History of History of suicide attempt 04/28/2019 @ 1615 Post op via RCS at 36 6/7 weeks gestation G7 now P5 Preeclampsia Positive UDS Insufficient care Seizure during RCS Anemia History of History of suicide attempt Depression Noncompliance RN called provider to the ICU patient was threatening to leave the facility- infant is currently also being transferred to a higher level of care. Provider educated patient about safety-she is recent postop, was extubated less than three hours ago, had a recent seizure, is at risk for another, her medications are larger and have side effects. Patient still being risky on leaving. After consulting ER physician on 72 hours hold-was decided patient was at risk for trying to leave AMA, and do to safety risk from history of attempted suicide, history of seizure, less than 24 hour post op, decision was made to have patient placed on a 72 hour hold for her safety. Did also notify Dr. Oviedo of the plan and he agreed. Patient notified and given rights. Patient is allowed to have cell phone and call button since there are video monitors at nurses station. Will continue to follow patient closely. Greater than 60 minutes spent on patient care, patient education, and collaboration of care. 04/28/2019 @ 6598 Was called again to patient room in ICU due to her requesting that provider come speak to her boyfriend/father of child that was born. Patient wanted provider to explain what all happened to the boyfriend. Boyfriend did state to provider that the patient had used methamphetamines within the last two days. He also stated that he did not know if he would be able to go to [place] to see baby during this time. He also states that they do not have custody of any other children. He was cooperative and did visit with patient after visiting with provider. RN was in room supervising during conversations. Will continue to follow 20 minutes spent on patient care-Patient education and collaboration of care. 04/29/2019 @ 0730 Post op day one via RCS at 36 6/7 weeks gestation G7 now P5 with complications Preeclampsia Positive UDS History of drug abuse Insufficient care Seizure during RCS Anemia History of History of suicide attempt Depression Noncompliance Fundus firm and bleeding decreasing Hgb-8.0, platelet-248, LDH-226 [place] draining clear yellow urine Intake and output normal Lung sounds clear DTRs 1-2+ can be sluggish when pushing pain medication [employer] often Magnesium running IV via protocol-magnesium level remains stable in Therapeutic range Still needs rest of metronidazole doses Patient is currently being cooperative Declines treatment for drug abuse at this time Would like started on medication for depression States she does not remember most of yesterday, delivery or infant States she does not have support or a vehicle for transportation - Plan Plan:: 04/28/2019 33 yo came in at 36 6/7 gestational weeks complaining of contractions. She had had insufficient care with a history of incarceration, drug abuse, and attempted suicide. Today she has signifcantly elevated BP and a protein/creatinine ratio of 284. She also has regular contractions that would not go away with interventions. Decision was made to proceed with repeat c- section due to labor and preeclampsia. SVE--/-1 FHTs category one Ultrasound-BPP 8/8, placenta grade 2-3 BP currently 140's over 90's Hyperreflexic Positive UDS Hgb-8.5 Wet prep-bacterial vaginosis, trich, positive WBC Plan- Contacted Dr. Oivedo and will proceed to a RCS Will treat patients elevated BP Will treat BV, Trich, yeast after delivery Will do social service consult Plan- Patient will remain in ICU To have magnesium 2 gram every hour then will titrate in 24 hours To be on seizure precautions To have vital signs per ICU protocol To have regular care To have IV antibiotics see orders To have NS IV titrated with Magnesium therapy To have CMP, CBC, LDH, and magnesium drawn at 1700 today Strict intake and Output every four hours BP to remain systolic 140-160/ diastolic 90-110 if out of this range to notify provider 04/29/2019 Patient will remain in ICU To be on seizure precautions To have vital signs per ICU protocol To have regular care To have IV antibiotics see orders To have NS IV titrated with Magnesium therapy, will titrate to 0.5gram/hour today To have LDH, and magnesium drawn at 1700 today Strict intake and Output every four hours BP to remain systolic 140-160/ diastolic 90-110 if out of this range to notify provider Will start oral antihypertensives today Will start oral antifungals today Social service consult to be done on infant Patient to remain on 72 hour hold Greater than 45 minutes spent on patient care-more than 50% of time spent on patient care, patient education, and collaboration of care.
[2019-04-29] MEDS: Fluconazole 150 MG Tab PO SCH (08:58)
[2019-04-29] MEDS: Cyanocobalamin (Vitamin B12) 1,000 MCG/ML SDV IM SCH (08:58)
[2019-04-29] MEDS: MVI, Adult with Vitamin K 10 ML, Chromium/Copper/Mang/Selen/Zn 1 ML, Thiamine 100 MG in... IV SCH ×8 (08:58→21:55)
[2019-04-29] MEDS: amLODIPine 5 MG Tab PO SCH (08:59)
[2019-04-29] MEDS ORDERED: Sodium Ferric Gluconate Cmplex 250 MG in Sodium Chloride 0.9% 100 ML IV SCH ×2 (09:00→10:00)
[2019-04-29] MEDS: HYDROmorphone/Normal Saline 15 MG/30 ML PCA IV PRN (16:35)
--- NOTE | 2019-04-29 19:18 | PCM.PNPP ---
- General Info Date of Service: 04/29/19 Functional Status: Reports: Pain Controlled - Review of Systems General: Reports: No Symptoms HEENT: Reports: No Symptoms Pulmonary: Reports: No Symptoms Cardiovascular: Reports: No Symptoms Gastrointestinal: Reports: No Symptoms Genitourinary: Reports: No Symptoms Musculoskeletal: Reports: No Symptoms Skin: Reports: No Symptoms Neurological: Reports: No Symptoms Psychiatric: Reports: No Symptoms - General Info Date of Service: 04/29/19 - Patient Data Vital Signs - Most Recent: Last Vital Signs Temp 36.2 C 04/29/19 18:00 Pulse 84 04/29/19 18:00 Resp 20 04/29/19 18:00 BP 140/93 H 04/29/19 18:00 Pulse Ox 97 04/29/19 18:00 Weight - Most Recent: 76.748 kg I&O - Last 24 Hours: Intake & Output 04/29/19 04/29/19 04/29/19 06:59 14:59 22:59 Intake Total 3013 1287 2600 Output Total 1350 2400 1500 Balance 1663 -1113 1100 Lab Results - Last 24 Hours: Laboratory Results - last 24 hr 04/28/19 04/28/19 04/28/19 Range/Units 08:47 10:00 21:00 WBC (4.5-11.0) K/uL RBC (3.30-5.50) M/uL Hgb (12.0-15.0) g/dL Hct (36.0-48.0) % MCV (80-98) fL MCH (27-31) pg MCHC (32-36) % Plt Count (150-400) K/uL Sodium (140-148) mmol/L Potassium (3.6-5.2) mmol/L Chloride (100-108) mmol/L Carbon Dioxide (21-32) mmol/L Anion Gap (5.0-14.0) mmol/L BUN (7-18) mg/dL Creatinine (0.6-1.0) mg/dL Est Cr Clr Drug Dosing mL/min Estimated GFR (MDRD) (>60) Glucose (74-106) mg/dL Calcium (8.5-10.1) mg/dL Phosphorus (2.5-4.9) mg/dL Magnesium 4.8 H (1.8-2.4) mg/dL Ferritin (8-388) ng/ml Total Bilirubin (0.2-1.0) mg/dL AST (15-37) U/L ALT (12-78) U/L Alkaline Phosphatase (46-116) U/L Lactate Dehydrogenase (82-234) U/L Total Protein (6.4-8.2) g/dL Albumin (3.4-5.0) g/dL Globulin (2.3-3.5) g/dL Albumin/Globulin Ratio (1.2-2.2) Vitamin B12 (193-986) pg/ml Hep Bs Antibody, Quant 36.0 (Immunity>9.9) mIU/mL Hepatitis C Antibody <0.1 (0.0-0.9) s/co ratio 04/29/19 04/29/19 04/29/19 Range/Units 01:00 05:00 05:00 WBC 8.5 (4.5-11.0) K/uL RBC 4.31 (3.30-5.50) M/uL Hgb 8.0 L (12.0-15.0) g/dL Hct 27.8 L (36.0-48.0) % MCV 65 L (80-98) fL MCH 19 L (27-31) pg MCHC 29 L (32-36) % Plt Count 248 (150-400) K/uL Sodium 134 L (140-148) mmol/L Potassium 4.4 (3.6-5.2) mmol/L Chloride 103 (100-108) mmol/L Carbon Dioxide 22 (21-32) mmol/L Anion Gap 13.4 (5.0-14.0) mmol/L BUN 4 L (7-18) mg/dL Creatinine 0.7 (0.6-1.0) mg/dL Est Cr Clr Drug Dosing 92.10 mL/min Estimated GFR (MDRD) > 60 (>60) Glucose 94 (74-106) mg/dL Calcium 6.9 L* (8.5-10.1) mg/dL Phosphorus 3.0 (2.5-4.9) mg/dL Magnesium 4.3 H (1.8-2.4) mg/dL Ferritin (8-388) ng/ml Total Bilirubin 0.2 (0.2-1.0) mg/dL AST 22 (15-37) U/L ALT 12 (12-78) U/L Alkaline Phosphatase 161 H (46-116) U/L Lactate Dehydrogenase 226 (82-234) U/L Total Protein 5.8 L (6.4-8.2) g/dL Albumin 1.8 L (3.4-5.0) g/dL Globulin 4.0 H (2.3-3.5) g/dL Albumin/Globulin Ratio 0.5 L (1.2-2.2) Vitamin B12 184 L (193-986) pg/ml Hep Bs Antibody, Quant (Immunity>9.9) mIU/mL Hepatitis C Antibody (0.0-0.9) s/co ratio 04/29/19 04/29/19 04/29/19 Range/Units 05:00 05:00 09:12 WBC (4.5-11.0) K/uL RBC (3.30-5.50) M/uL Hgb (12.0-15.0) g/dL Hct (36.0-48.0) % MCV (80-98) fL MCH (27-31) pg MCHC (32-36) % Plt Count (150-400) K/uL Sodium (140-148) mmol/L Potassium (3.6-5.2) mmol/L Chloride (100-108) mmol/L Carbon Dioxide (21-32) mmol/L Anion Gap (5.0-14.0) mmol/L BUN (7-18) mg/dL Creatinine (0.6-1.0) mg/dL Est Cr Clr Drug Dosing mL/min Estimated GFR (MDRD) (>60) Glucose (74-106) mg/dL Calcium (8.5-10.1) mg/dL Phosphorus (2.5-4.9) mg/dL Magnesium 4.5 H 3.6 H D (1.8-2.4) mg/dL Ferritin 8 (8-388) ng/ml Total Bilirubin (0.2-1.0) mg/dL AST (15-37) U/L ALT (12-78) U/L Alkaline Phosphatase (46-116) U/L Lactate Dehydrogenase (82-234) U/L Total Protein (6.4-8.2) g/dL Albumin (3.4-5.0) g/dL Globulin (2.3-3.5) g/dL Albumin/Globulin Ratio (1.2-2.2) Vitamin B12 (193-986) pg/ml Hep Bs Antibody, Quant (Immunity>9.9) mIU/mL Hepatitis C Antibody (0.0-0.9) s/co ratio 04/29/19 04/29/19 Range/Units 12:57 17:00 WBC (4.5-11.0) K/uL RBC (3.30-5.50) M/uL Hgb (12.0-15.0) g/dL Hct (36.0-48.0) % MCV (80-98) fL MCH (27-31) pg MCHC (32-36) % Plt Count (150-400) K/uL Sodium (140-148) mmol/L Potassium (3.6-5.2) mmol/L Chloride (100-108) mmol/L Carbon Dioxide (21-32) mmol/L Anion Gap (5.0-14.0) mmol/L BUN (7-18) mg/dL Creatinine (0.6-1.0) mg/dL Est Cr Clr Drug Dosing mL/min Estimated GFR (MDRD) (>60) Glucose (74-106) mg/dL Calcium (8.5-10.1) mg/dL Phosphorus (2.5-4.9) mg/dL Magnesium 3.4 H 2.6 H D (1.8-2.4) mg/dL Ferritin (8-388) ng/ml Total Bilirubin (0.2-1.0) mg/dL AST (15-37) U/L ALT (12-78) U/L Alkaline Phosphatase (46-116) U/L Lactate Dehydrogenase 221 (82-234) U/L Total Protein (6.4-8.2) g/dL Albumin (3.4-5.0) g/dL Globulin (2.3-3.5) g/dL Albumin/Globulin Ratio (1.2-2.2) Vitamin B12 (193-986) pg/ml Hep Bs Antibody, Quant (Immunity>9.9) mIU/mL Hepatitis C Antibody (0.0-0.9) s/co ratio Med Orders - Current: Current Medications Amlodipine Besylate (Norvasc) 5 mg PO DAILY [facility] Last Admin: 04/29/19 08:59 Dose: 5 mg Calcium Gluconate (Calcium Gluconate) 1 gm IVPUSH ONETIME PRN PRN Reason: MAGNESIUM TOXICITY Cyanocobalamin (Vitamin B12) 1,000 mcg IM DAILY [facility] Stop: 04/30/19 09:01 Last Admin: 04/29/19 08:58 Dose: 1,000 mcg Fluconazole (Diflucan) 150 mg PO DAILY [facility] Stop: 05/01/19 09:00 Last Admin: 04/29/19 08:58 Dose: 150 mg Hydromorphone HCl (Dilaudid Runner Out 15 Mg In Ns 30 Ml) 0 mg IV ASDIRECTED PRN; Protocol PRN Reason: Pain Last Admin: 04/29/19 16:35 Dose: 15 mg Hydroxyzine HCl (Vistaril) 100 mg IM Q4H PRN PRN Reason: PAIN Cefoxitin Sodium 2 gm/ Sodium (Chloride) 50 mls @ 100 mls/hr IV Q6H [facility] Last Admin: 04/29/19 18:12 Dose: 100 mls/hr Sodium Chloride (Normal Saline) 1,000 mls @ 75 mls/hr IV ASDIRECTED [facility] Multivitamins/Minerals 10 ml/Chromium/Copper/Manganese/Seleni/Zn 1 ml/ Thiamine HCl 100 mg/ Sodium Chloride 1,012 mls @ 75 mls/hr IV Q13H [facility] Stop: 04/30/19 10:59 Last Admin: 04/29/19 08:58 Dose: 75 mls/hr Iron Sucrose 500 mg/ Sodium (Chloride) 275 mls @ 68.75 mls/hr IV ONETIME ONE Stop: 04/30/19 12:59 Labetalol HCl (Normodyne) 5 - 10 mg IV Q1H PRN PRN Reason: FOR SBP >/= 160 OR DBP > 95 Lorazepam (Ativan) 1 mg IVPUSH Q2H PRN PRN Reason: Anxiety Naloxone HCl (Narcan) 0.1 mg IVPUSH Q2M PRN PRN Reason: Respiratory Distress Ondansetron HCl (Zofran) 4 mg IVPUSH Q4H PRN PRN Reason: Nausea Sodium Chloride (Saline Flush) 10 ml FLUSH ASDIRECTED PRN PRN Reason: Keep Vein Open Discontinued Medications Cefoxitin Sodium (Mefoxin) Confirm Administered Dose 1 gm .ROUTE .STK-MED ONE Stop: 04/28/19 11:08 Last Admin: 04/28/19 12:55 Dose: 1 gm Cefoxitin Sodium (Mefoxin) Confirm Administered Dose 2 gm .ROUTE .STK-MED ONE Stop: 04/28/19 12:11 Ephedrine Sulfate (Ephedrine Sulfate) Confirm Administered Dose 50 mg .ROUTE .STK-MED ONE Stop: 04/28/19 12:16 Fentanyl (Sublimaze) Confirm Administered Dose 250 mcg .ROUTE .STK-MED ONE Stop: 04/28/19 13:35 Lactated Ringer's (Ringers, Lactated) 1,000 mls @ 999 mls/hr IV BOLUS ONE Stop: 04/28/19 09:16 Last Admin: 04/28/19 08:27 Dose: 999 mls/hr Lactated Ringer's (Ringers, Lactated) 1,000 mls @ 100 mls/hr IV ASDIRECTED [facility] Last Admin: 04/28/19 09:30 Dose: 100 mls/hr Lactated Ringer's (Ringers, Lactated) Confirm Administered Dose 1,000 mls @ as directed .ROUTE .STK-MED ONE Stop: 04/28/19 12:12 Ceftriaxone Sodium 2 gm/ (Sodium Chloride) 50 mls @ 100 mls/hr IV ONETIME ONE Stop: 04/28/19 14:59 Last Admin: 04/28/19 14:25 Dose: 100 mls/hr Metronidazole 500 mg/ Premix 100 mls @ 100 mls/hr IV Q8H [facility] Stop: 04/29/19 16:29 Last Admin: 04/29/19 15:37 Dose: 100 mls/hr Magnesium Sulfate (Magnesium Sulfate In Water Premix) 40 gm in 1,000 mls @ 0 mls/hr IV ASDIRECTED [facility] Stop: 04/29/19 14:30 Last Infusion: 04/29/19 14:03 Dose: 0 mls/hr Azithromycin 1,000 mg/ Sodium (Chloride) 500 mls @ 250 mls/hr IV ONETIME ONE Stop: 04/28/19 18:29 Last Admin: 04/28/19 16:57 Dose: 250 mls/hr Oxytocin/Sodium Chloride (Pitocin In Ns 20 Units/1,000 Ml) 20 unit in 1,000 mls @ 100 mls/hr IV TITRATE [facility] Stop: 04/29/19 00:59 Last Admin: 04/28/19 15:03 Dose: 100 mls/hr Sodium Chloride (Normal Saline) 1,000 mls @ 100 mls/hr IV ASDIRECTED [facility] Ferric Sodium Gluconate Complex 250 mg/ Sodium Chloride 120 mls @ 60 mls/hr IV Q24H [facility] Stop: 04/29/19 18:00 Last Admin: 04/29/19 08:58 Dose: 60 mls/hr Labetalol HCl (Normodyne) Confirm Administered Dose 20 mg .ROUTE .STK-MED ONE Stop: 04/28/19 12:41 Midazolam HCl (Versed 1 Mg/Ml) Confirm Administered Dose 2 mg .ROUTE .STK-MED ONE Stop: 04/28/19 12:23 Oxytocin (Pitocin) Confirm Administered Dose 10 unit .ROUTE .STK-MED ONE Stop: 04/28/19 11:08 Last Admin: 04/28/19 12:25 Dose: 10 unit Oxytocin (Pitocin) Confirm Administered Dose 20 unit .ROUTE .STK-MED ONE Stop: 04/28/19 12:11 Propofol (Diprivan 20 Ml) Confirm Administered Dose 200 mg .ROUTE .STK-MED ONE Stop: 04/28/19 12:34 Rocuronium [place] (Zemuron) Confirm Administered Dose 50 mg .ROUTE .STK-MED ONE Stop: 04/28/19 12:31 Sugammadex Sodium (Bridion) Confirm Administered Dose 200 mg .ROUTE .STK-MED ONE Stop: 04/28/19 12:50 - Interaction Infant Disposition, : transfered Infant Interaction: Other (see below) - Recovery Exam Fundal Tone: Firm Fundal Level: 1 Fingerbreadths Below Umbilicus Fundal Placement: Midline Lochia Amount: Small Lochia Color: [place] Perineum Description: Intact, Minimal Bruising/Swelling Episiotomy/Laceration: None Bladder Status: Nonpalpable, Voiding Urinary Elimination: Voided - Exam General: Alert, Oriented, Cooperative HEENT: Pupils Equal Neck: Supple Lungs: Clear to Auscultation, Normal Respiratory Effort Cardiovascular: Regular Rate, Regular Rhythm GI/Abdominal Exam: Normal Bowel Sounds, Soft, Non-Tender, No Organomegaly, No Distention, No Abnormal Bruit, No Mass, Pelvis Stable Extremities: Normal Inspection, Normal Range of Motion, Non-Tender, No Pedal Edema, Normal Capillary Refill Skin: Warm, Dry, Intact Wound/Incisions: Healing Well Neurological: No New Focal Deficit Psy/Mental Status: Alert, Normal Affect, Normal Mood - Problem List & Annotations (1) Drug use affecting in third trimester SNOMED Code(s): 22546250, 92348571, 670283367 Code(s): O99.323 - DRUG USE COMPLICATING , THIRD TRIMESTER Status : Acute Priority: High Current Visit: Yes (2) labor in third trimester SNOMED Code(s): 7801826 Code(s): O60.03 - LABOR WITHOUT DELIVERY, THIRD TRIMESTER Status: Acute Priority: High Current Visit: Yes (3) Insufficient care in third trimester SNOMED Code(s): 2297818742508, 6381135882555 Code(s): O09.33 - SUPRVSN OF PREG W INSUFFICIENT ANTENAT CARE, THIRD TRIMESTER Status: Acute Current Visit: Yes (4) History of delivery, currently in third trimester SNOMED Code(s): 85331932, 52422362 Code(s): O09.213 - SUPRVSN OF PREG W HISTORY OF PRE-TERM LABOR, THIRD TRIMESTER Status: Acute Current Visit: Yes (5) S/P repeat low transverse SNOMED Code(s): 841525945, 47688571, 715917264, 020882095, 331540743 Code(s): Z98.891 - HISTORY OF UTERINE SCAR FROM PREVIOUS SURGERY Status: Acute Current Visit: Yes (6) History of suicide attempt SNOMED Code(s): 978734083, 330687233 Code(s): Z91.5 - PERSONAL HISTORY OF SELF-HARM Status: Acute Current Visit: Yes (7) SNOMED Code(s): 50793322 Code(s): Z34.90 - ENCNTR FOR SUPRVSN OF NORMAL , UNSP, UNSP TRIMESTER Status: Acute Current Visit: Yes (8) 36 to 37 weeks gestation of SNOMED Code(s): 184567559 Code(s): QBN6925 - Status: Acute Current Visit: Yes (9) Preeclampsia SNOMED Code(s): 067967388 Code(s): O14.90 - UNSPECIFIED PRE-ECLAMPSIA, UNSPECIFIED TRIMESTER Status: Acute Current Visit: Yes (10) Protein in urine SNOMED Code(s): 45288527 Code(s): R80.9 - PROTEINURIA, UNSPECIFIED Status: Acute Current Visit: Yes (11) Tobacco user SNOMED Code(s): 490703122 Code(s): Z72.0 - TOBACCO USE Status: Chronic Priority: Medium Current Visit: No (12) Seizure SNOMED Code(s): 84397930 Code(s): R56.9 - UNSPECIFIED CONVULSIONS Status: Acute Current Visit: Yes (13) Noncompliance SNOMED Code(s): 7688012 Code(s): Z91.19 - PATIENT'S NONCOMPLIANCE W OTH MEDICAL TREATMENT AND REGIMEN Status: Acute Current Visit: Yes (14) Depression SNOMED Code(s): 68047411 Code(s): F32.9 - MAJOR DEPRESSIVE DISORDER, SINGLE EPISODE, UNSPECIFIED Status: Acute Current Visit: Yes (15) High risk due to maternal drug abuse in third trimester SNOMED Code(s): 588448014, 520947471 Code(s): O99.323 - DRUG USE COMPLICATING , THIRD TRIMESTER; F19.10 - OTHER PSYCHOACTIVE SUBSTANCE ABUSE, UNCOMPLICATED Status: Acute Current Visit: Yes - Problem List Review Problem List Initiated/Reviewed/Updated: Yes - My Orders Last 24 Hours: My Active Orders 04/28/19 21:35 Communication Order [RC] Click to Edit 04/29/19 07:15 Sodium Chloride 0.9% [Normal Saline] 1,000 ml IV ASDIRECTED 04/29/19 09:00 Fluconazole [Diflucan] 150 mg PO DAILY amLODIPine [Norvasc] 5 mg PO DAILY 04/30/19 05:00 LACTATE DEHYDROGENASE,LDH [CHEM] Routine - Assessment Assessment:: 04/28/2019 Post op via RCS at 36 6/7 weeks gestation G7 now P5 Preeclampsia Positive UDS Insufficient care Seizure during RCS Anemia History of History of suicide attempt 04/28/2019 @ 1615 Post op via RCS at 36 6/7 weeks gestation G7 now P5 Preeclampsia Positive UDS Insufficient care Seizure during RCS Anemia History of History of suicide attempt Depression Noncompliance RN called provider to the ICU patient was threatening to leave the facility- is currently also being transferred to a higher level of care. Provider educated patient about safety-she is recent postop, was extubated less than three hours ago, had a recent seizure, is at risk for another, her medications are larger and have side effects. Patient still being risky on leaving. After consulting ER physician on 72 hours hold-was decided patient was at risk for trying to leave AMA, and do to safety risk from history of attempted suicide, history of seizure, less than 24 hour post op, decision was made to have patient placed on a 72 hour hold for her safety. Did also notify Dr. Oviedo of the plan and he agreed. Patient notified and given rights. Patient is allowed to have cell phone and call button since there are video monitors at nurses station. Will continue to follow patient closely. Greater than 60 minutes spent on patient care, patient education, and collaboration of care. 04/28/2019 @ 6044 Was called again to patient room in ICU due to her requesting that provider come speak to her boyfriend/father of child that was born. Patient wanted provider to explain what all happened to the boyfriend. Boyfriend did state to provider that the patient had used methamphetamines within the last two days. He also stated that he did not know if he would be able to go to [place] to see baby during this time. He also states that they do not have custody of any other children. He was cooperative and did visit with patient after visiting with provider. RN was in room supervising during conversations. Will continue to follow 20 minutes spent on patient care-Patient education and collaboration of care. 04/29/2019 @ 0730 Post op day one via RCS at 36 6/7 weeks gestation G7 now P5 with complications Preeclampsia Positive UDS History of drug abuse Insufficient care Seizure during RCS Anemia History of History of suicide attempt Depression Noncompliance Fundus firm and bleeding decreasing Hgb-8.0, platelet-248, LDH-226 [place] draining clear yellow urine Intake and output normal Lung sounds clear DTRs 1-2+ can be sluggish when pushing pain medication TRAINING AND DEVELOPMENT REP often Magnesium running IV via protocol-magnesium level remains stable in Therapeutic range Still needs rest of metronidazole doses Patient is currently being cooperative Declines treatment for drug abuse at this time Would like started on medication for depression States she does not remember most of yesterday, delivery or infant States she does not have support or a vehicle for transportation 04/29/2019 @ 1915 Patient currently more stable Dc'd Magnesium IV at this time BPs have been better Output good Patient being more compliant Remains on a 72 hr hold Will continue to monitor - Plan Plan:: 04/28/2019 33 yo came in at 36 6/7 gestational weeks complaining of contractions. She had had insufficient care with a history of incarceration, drug abuse, and attempted suicide. Today she has signifcantly elevated BP and a protein/creatinine ratio of 284. She also has regular contractions that would not go away with interventions. Decision was made to proceed with repeat c- section due to labor and preeclampsia. SVE-1-2/70/-1 FHTs category one Ultrasound-BPP 8, placenta grade 2-3 BP currently 140's over 90's Hyperreflexic Positive UDS Hgb-8.5 Wet prep-bacterial vaginosis, trich, positive WBC Plan- Contacted Dr. Oviedo and will proceed to a RCS Will treat patients elevated BP Will treat BV, Trich, yeast after delivery Will do social service consult Plan- Patient will remain in ICU To have magnesium 2 gram every hour then will titrate in 24 hours To be on seizure precautions To have vital signs per ICU protocol To have regular care To have IV antibiotics see orders To have NS IV titrated with Magnesium therapy To have CMP, CBC, LDH, and magnesium drawn at 1700 today Strict intake and Output every four hours BP to remain systolic 140-160/ diastolic 90-110 if out of this range to notify provider 04/29/2019 Patient will remain in ICU To be on seizure precautions To have vital signs per ICU protocol To have regular care To have IV antibiotics see orders To have NS IV titrated with Magnesium therapy, will titrate to 0.5gram/hour today To have LDH, and magnesium drawn at 1700 today Strict intake and Output every four hours BP to remain systolic 140-160/ diastolic 90-110 if out of this range to notify provider Will start oral antihypertensives today Will start oral antifungals today Social service consult to be done on infant Patient to remain on 72 hour hold Greater than 45 minutes spent on patient care-more than 50% of time spent on patient care, patient education, and collaboration of care. 04/29/2019 Continue to monitor BPs closely Continue 72 hour hold Dc'd magnesium IV and magnesium labs Will draw CMP, CBC, LDH in am
[2019-04-30] MEDS: cefOXitin 2 GM in Sodium Chloride 0.9% 50 ML IV SCH ×4 (06:09→23:57)
[2019-04-30] MEDS ORDERED: HYDROmorphone 2 MG Tab PO PRN (07:39)
[2019-04-30] MEDS ORDERED: Sodium Chloride 0.9% 10 ML Syringe IV PRN (07:42)
[2019-04-30] MEDS ORDERED: Acetaminophen 325 MG Tab PO SCH (08:00)
[2019-04-30] MEDS ORDERED: Iron Sucrose Complex 500 MG in Sodium Chloride 0.9% 250 ML IV ONE (08:00)
--- NOTE | 2019-04-30 08:13 | PCM.PNPP ---
- General Info Date of Service: 04/30/19 Functional Status: Reports: Pain Controlled - Review of Systems General: Reports: No Symptoms HEENT: Reports: No Symptoms Pulmonary: Reports: No Symptoms Cardiovascular: Reports: No Symptoms Gastrointestinal: Reports: No Symptoms Genitourinary: Reports: No Symptoms Musculoskeletal: Reports: No Symptoms Skin: Reports: No Symptoms Neurological: Reports: No Symptoms Psychiatric: Reports: No Symptoms - General Info Date of Service: 04/30/19 - Patient Data Vital Signs - Most Recent: Last Vital Signs Temp 36.8 C 04/30/19 07:00 Pulse 68 04/30/19 07:00 Resp 19 04/30/19 07:00 BP 130/80 04/30/19 07:00 Pulse Ox 97 04/30/19 07:00 Weight - Most Recent: 76.748 kg I&O - Last 24 Hours: Intake & Output 04/29/19 04/30/19 04/30/19 22:59 06:59 14:59 Intake Total 2600 1957 Output Total 2300 1000 Balance 300 957 Lab Results - Last 24 Hours: Laboratory Results - last 24 hr 04/28/19 04/28/19 04/29/19 Range/Units 08:47 10:00 09:12 WBC (4.5-11.0) K/uL RBC (3.30-5.50) M/uL Hgb (12.0-15.0) g/dL Hct (36.0-48.0) % MCV (80-98) fL MCH (27-31) pg MCHC (32-36) % Plt Count (150-400) K/uL Sodium (140-148) mmol/L Potassium (3.6-5.2) mmol/L Chloride (100-108) mmol/L Carbon Dioxide (21-32) mmol/L Anion Gap (5.0-14.0) mmol/L BUN (7-18) mg/dL Creatinine (0.6-1.0) mg/dL Est Cr Clr Drug Dosing mL/min Estimated GFR (MDRD) (>60) Glucose (74-106) mg/dL Calcium (8.5-10.1) mg/dL Phosphorus (2.5-4.9) mg/dL Magnesium 3.6 H D (1.8-2.4) mg/dL Total Bilirubin (0.2-1.0) mg/dL AST (15-37) U/L ALT (12-78) U/L Alkaline Phosphatase (46-116) U/L Lactate Dehydrogenase (82-234) U/L Total Protein (6.4-8.2) g/dL Albumin (3.4-5.0) g/dL Globulin (2.3-3.5) g/dL Albumin/Globulin Ratio (1.2-2.2) Hep Bs Antibody, Quant 36.0 (Immunity>9.9) mIU/mL Hepatitis C Antibody <0.1 (0.0-0.9) s/co ratio 04/29/19 04/29/19 04/30/19 Range/Units 12:57 17:00 04:00 WBC 11.7 H (4.5-11.0) K/uL RBC 3.99 (3.30-5.50) M/uL Hgb 7.3 L (12.0-15.0) g/dL Hct 26.4 L (36.0-48.0) % MCV 66 L (80-98) fL MCH 18 L (27-31) pg MCHC 28 L (32-36) % Plt Count 253 (150-400) K/uL Sodium (140-148) mmol/L Potassium (3.6-5.2) mmol/L Chloride (100-108) mmol/L Carbon Dioxide (21-32) mmol/L Anion Gap (5.0-14.0) mmol/L BUN (7-18) mg/dL Creatinine (0.6-1.0) mg/dL Est Cr Clr Drug Dosing mL/min Estimated GFR (MDRD) (>60) Glucose (74-106) mg/dL Calcium (8.5-10.1) mg/dL Phosphorus (2.5-4.9) mg/dL Magnesium 3.4 H 2.6 H D (1.8-2.4) mg/dL Total Bilirubin (0.2-1.0) mg/dL AST (15-37) U/L ALT (12-78) U/L Alkaline Phosphatase (46-116) U/L Lactate Dehydrogenase 221 (82-234) U/L Total Protein (6.4-8.2) g/dL Albumin (3.4-5.0) g/dL Globulin (2.3-3.5) g/dL Albumin/Globulin Ratio (1.2-2.2) Hep Bs Antibody, Quant (Immunity>9.9) mIU/mL Hepatitis C Antibody (0.0-0.9) s/co ratio 04/30/19 04/30/19 Range/Units 04:00 04:00 WBC (4.5-11.0) K/uL RBC (3.30-5.50) M/uL Hgb (12.0-15.0) g/dL Hct (36.0-48.0) % MCV (80-98) fL MCH (27-31) pg MCHC (32-36) % Plt Count (150-400) K/uL Sodium 137 L (140-148) mmol/L Potassium 4.0 (3.6-5.2) mmol/L Chloride 105 (100-108) mmol/L Carbon Dioxide 25 (21-32) mmol/L Anion Gap 11.0 (5.0-14.0) mmol/L BUN 2 L (7-18) mg/dL Creatinine 0.6 (0.6-1.0) mg/dL Est Cr Clr Drug Dosing 107.45 mL/min Estimated GFR (MDRD) > 60 (>60) Glucose 96 (74-106) mg/dL Calcium 7.6 L (8.5-10.1) mg/dL Phosphorus 3.1 (2.5-4.9) mg/dL Magnesium (1.8-2.4) mg/dL Total Bilirubin 0.1 L (0.2-1.0) mg/dL AST 12 L (15-37) U/L ALT 11 L (12-78) U/L Alkaline Phosphatase 132 H (46-116) U/L Lactate Dehydrogenase 175 (82-234) U/L Total Protein 5.6 L (6.4-8.2) g/dL Albumin 1.7 L (3.4-5.0) g/dL Globulin 3.9 H (2.3-3.5) g/dL Albumin/Globulin Ratio 0.4 L (1.2-2.2) Hep Bs Antibody, Quant (Immunity>9.9) mIU/mL Hepatitis C Antibody (0.0-0.9) s/co ratio Micro Results - Last 24 Hours: Microbiology 04/28/19 10:10 Group B Streptococcus Culture - Preliminary Vaginal/Rectal NEGATIVE STREP GROUP B Med Orders - Current: Current Medications Acetaminophen (Tylenol) 650 mg PO Q6H [facility] Amlodipine Besylate (Norvasc) 5 mg PO DAILY [facility] Last Admin: 04/29/19 08:59 Dose: 5 mg Bisacodyl (Dulcolax) 10 mg PO BID [facility] Calcium Gluconate (Calcium Gluconate) 1 gm IVPUSH ONETIME PRN PRN Reason: MAGNESIUM TOXICITY Cyanocobalamin (Vitamin B12) 1,000 mcg IM DAILY [facility] Stop: 04/30/19 09:01 Last Admin: 04/29/19 08:58 Dose: 1,000 mcg Fluconazole (Diflucan) 150 mg PO DAILY [facility] Stop: 05/01/19 09:00 Last Admin: 04/29/19 08:58 Dose: 150 mg Hydromorphone HCl (Dilaudid) 2 - 4 mg PO Q4H PRN PRN Reason: 2mg - MODERATE; 4mg - SEVERE Last Admin: 04/30/19 08:03 Dose: 4 mg Hydroxyzine HCl (Vistaril) 100 mg IM Q4H PRN PRN Reason: PAIN Cefoxitin Sodium 2 gm/ Sodium (Chloride) 50 mls @ 100 mls/hr IV Q6H [facility] Last Admin: 04/30/19 06:09 Dose: 100 mls/hr Sodium Chloride (Normal Saline) 1,000 mls @ 75 mls/hr IV ASDIRECTED [facility] Stop: 04/30/19 14:00 Multivitamins/Minerals 10 ml/Chromium/Copper/Manganese/Seleni/Zn 1 ml/ Thiamine HCl 100 mg/ Sodium Chloride 1,012 mls @ 75 mls/hr IV Q13H [facility] Stop: 04/30/19 10:59 Last Admin: 04/29/19 21:55 Dose: 75 mls/hr Iron Sucrose 500 mg/ Sodium (Chloride) 275 mls @ 68.75 mls/hr IV ONETIME ONE Stop: 04/30/19 11:59 Last Admin: 04/30/19 07:40 Dose: 68.75 mls/hr Ibuprofen (Motrin) 600 mg PO Q6H [facility] Labetalol HCl (Normodyne) 5 - 10 mg IV Q1H PRN PRN Reason: FOR SBP >/= 160 OR DBP > 95 Lorazepam (Ativan) 1 mg IVPUSH Q2H PRN PRN Reason: Anxiety Magnesium Hydroxide (Milk Of Magnesia) 30 ml PO BID [facility] Ondansetron HCl (Zofran) 4 mg IVPUSH Q4H PRN PRN Reason: Nausea Sodium Chloride (Saline Flush) 10 ml FLUSH ASDIRECTED PRN PRN Reason: Keep Vein Open Sodium Chloride (Saline Flush) 10 ml IV ASDIRECTED PRN PRN Reason: LINE FLUSH Discontinued Medications Cefoxitin Sodium (Mefoxin) Confirm Administered Dose 1 gm .ROUTE .STK-MED ONE Stop: 04/28/19 11:08 Last Admin: 04/28/19 12:55 Dose: 1 gm Cefoxitin Sodium (Mefoxin) Confirm Administered Dose 2 gm .ROUTE .STK-MED ONE Stop: 04/28/19 12:11 Ephedrine Sulfate (Ephedrine Sulfate) Confirm Administered Dose 50 mg .ROUTE .STK-MED ONE Stop: 04/28/19 12:16 Fentanyl (Sublimaze) Confirm Administered Dose 250 mcg .ROUTE .STK-MED ONE Stop: 04/28/19 13:35 Hydromorphone HCl (Dilaudid Criminalist 15 Mg In Ns 30 Ml) 0 mg IV ASDIRECTED PRN; Protocol PRN Reason: Pain Last Admin: 04/29/19 16:35 Dose: 15 mg Lactated Ringer's (Ringers, Lactated) 1,000 mls @ 999 mls/hr IV BOLUS ONE Stop: 04/28/19 09:16 Last Admin: 04/28/19 08:27 Dose: 999 mls/hr Lactated Ringer's (Ringers, Lactated) 1,000 mls @ 100 mls/hr IV ASDIRECTED [facility] Last Admin: 04/28/19 09:30 Dose: 100 mls/hr Lactated Ringer's (Ringers, Lactated) Confirm Administered Dose 1,000 mls @ as directed .ROUTE .STK-MED ONE Stop: 04/28/19 12:12 Ceftriaxone Sodium 2 gm/ (Sodium Chloride) 50 mls @ 100 mls/hr IV ONETIME ONE Stop: 04/28/19 14:59 Last Admin: 04/28/19 14:25 Dose: 100 mls/hr Metronidazole 500 mg/ Premix 100 mls @ 100 mls/hr IV Q8H [facility] Stop: 04/29/19 16:29 Last Admin: 04/29/19 15:37 Dose: 100 mls/hr Magnesium Sulfate (Magnesium Sulfate In Water Premix) 40 gm in 1,000 mls @ 0 mls/hr IV ASDIRECTED [facility] Stop: 04/29/19 14:30 Last Infusion: 04/29/19 14:03 Dose: 0 mls/hr Azithromycin 1,000 mg/ Sodium (Chloride) 500 mls @ 250 mls/hr IV ONETIME ONE Stop: 04/28/19 18:29 Last Admin: 04/28/19 16:57 Dose: 250 mls/hr Oxytocin/Sodium Chloride (Pitocin In Ns 20 Units/1,000 Ml) 20 unit in 1,000 mls @ 100 mls/hr IV TITRATE [facility] Stop: 04/29/19 00:59 Last Admin: 04/28/19 15:03 Dose: 100 mls/hr Sodium Chloride (Normal Saline) 1,000 mls @ 100 mls/hr IV ASDIRECTED [facility] Ferric Sodium Gluconate Complex 250 mg/ Sodium Chloride 120 mls @ 60 mls/hr IV Q24H [facility] Stop: 04/29/19 18:00 Last Admin: 04/29/19 08:58 Dose: 60 mls/hr Labetalol HCl (Normodyne) Confirm Administered Dose 20 mg .ROUTE .STK-MED ONE Stop: 04/28/19 12:41 Midazolam HCl (Versed 1 Mg/Ml) Confirm Administered Dose 2 mg .ROUTE .STK-MED ONE Stop: 04/28/19 12:23 Oxytocin (Pitocin) Confirm Administered Dose 10 unit .ROUTE .STK-MED ONE Stop: 04/28/19 11:08 Last Admin: 04/28/19 12:25 Dose: 10 unit Oxytocin (Pitocin) Confirm Administered Dose 20 unit .ROUTE .STK-MED ONE Stop: 04/28/19 12:11 Propofol (Diprivan 20 Ml) Confirm Administered Dose 200 mg .ROUTE .STK-MED ONE Stop: 04/28/19 12:34 Rocuronium [place] (Zemuron) Confirm Administered Dose 50 mg .ROUTE .STK-MED ONE Stop: 04/28/19 12:31 Sugammadex Sodium (Bridion) Confirm Administered Dose 200 mg .ROUTE .STK-MED ONE Stop: 04/28/19 12:50 - Infant Interaction Infant Disposition, : transfered Infant Interaction: Other (see below) - Recovery Exam Fundal Tone: Firm Fundal Level: 1 Fingerbreadths Below Umbilicus Fundal Placement: Midline Lochia Amount: Small Lochia Color: Rubra/Red Perineum Description: Intact, Minimal Bruising/Swelling Episiotomy/Laceration: None Bladder Status: Voiding Urinary Elimination: Voided - Exam General: Alert, Oriented, Cooperative HEENT: Pupils Equal, Pupils Reactive, EOMI, Mucous Membr. Moist/[place] Neck: Supple Lungs: Clear to Auscultation, Normal Respiratory Effort Cardiovascular: Regular Rate, Regular Rhythm GI/Abdominal Exam: Normal Bowel Sounds, Soft, Non-Tender, No Organomegaly, No Distention, No Abnormal Bruit, No Mass, Pelvis Stable Extremities: Normal Inspection, Normal Range of Motion, Non-Tender, No Pedal Edema, Normal Capillary Refill Skin: Warm, Dry, Intact Wound/Incisions: Healing Well Neurological: No New Focal Deficit Psy/Mental Status: Alert, Normal Affect, Normal Mood - Problem List & Annotations (1) Drug use affecting in third trimester SNOMED Code(s): 93299180, 38231769, 292561684 Code(s): O99.323 - DRUG USE COMPLICATING , THIRD TRIMESTER Status : Acute Priority: High Current Visit: Yes (2) labor in third trimester SNOMED Code(s): 7975629 Code(s): O60.03 - LABOR WITHOUT DELIVERY, THIRD TRIMESTER Status: Acute Priority: High Current Visit: Yes (3) Insufficient care in third trimester SNOMED Code(s): 5527510161402, 3896134395867 Code(s): O09.33 - SUPRVSN OF PREG W INSUFFICIENT ANTENAT CARE, THIRD TRIMESTER Status: Acute Current Visit: Yes (4) History of delivery, currently in third trimester SNOMED Code(s): 82908574, 66287425 Code(s): O09.213 - SUPRVSN OF PREG W HISTORY OF PRE-TERM LABOR, THIRD TRIMESTER Status: Acute Current Visit: Yes (5) S/P repeat low transverse SNOMED Code(s): 281289056, 97002552, 497653829, 606493046, 243192029 Code(s): Z98.891 - HISTORY OF UTERINE SCAR FROM PREVIOUS SURGERY Status: Acute Current Visit: Yes (6) History of suicide attempt SNOMED Code(s): 808195330, 544327276 Code(s): Z91.5 - PERSONAL HISTORY OF SELF-HARM Status: Acute Current Visit: Yes (7) SNOMED Code(s): 35372220 Code(s): Z34.90 - ENCNTR FOR SUPRVSN OF NORMAL , UNSP, UNSP TRIMESTER Status: Acute Current Visit: Yes (8) 36 to 37 weeks gestation of SNOMED Code(s): 533709916 Code(s): GWQ5417 - Status: Acute Current Visit: Yes (9) Preeclampsia SNOMED Code(s): 321072959 Code(s): O14.90 - UNSPECIFIED PRE-ECLAMPSIA, UNSPECIFIED TRIMESTER Status: Acute Current Visit: Yes (10) Protein in urine SNOMED Code(s): 77988668 Code(s): R80.9 - PROTEINURIA, UNSPECIFIED Status: Acute Current Visit: Yes (11) Tobacco user SNOMED Code(s): 208533197 Code(s): Z72.0 - TOBACCO USE Status: Chronic Priority: Medium Current Visit: No (12) Seizure SNOMED Code(s): 98841345 Code(s): R56.9 - UNSPECIFIED CONVULSIONS Status: Acute Current Visit: Yes (13) Noncompliance SNOMED Code(s): 0112551 Code(s): Z91.19 - PATIENT'S NONCOMPLIANCE W OTH MEDICAL TREATMENT AND REGIMEN Status: Acute Current Visit: Yes (14) Depression SNOMED Code(s): 39242986 Code(s): F32.9 - MAJOR DEPRESSIVE DISORDER, SINGLE EPISODE, UNSPECIFIED Status: Acute Current Visit: Yes (15) High risk due to maternal drug abuse in third trimester SNOMED Code(s): 033292456, 981930397 Code(s): O99.323 - DRUG USE COMPLICATING , THIRD TRIMESTER; F19.10 - OTHER PSYCHOACTIVE SUBSTANCE ABUSE, UNCOMPLICATED Status: Acute Current Visit: Yes - Problem List Review Problem List Initiated/Reviewed/Updated: Yes - My Orders Last 24 Hours: My Active Orders 04/29/19 07:15 Sodium Chloride 0.9% [Normal Saline] 1,000 ml IV ASDIRECTED 04/29/19 09:00 Fluconazole [Diflucan] 150 mg PO DAILY amLODIPine [Norvasc] 5 mg PO DAILY - Assessment Assessment:: 04/28/2019 Post op via RCS at 36 6/7 weeks gestation G7 now P5 Preeclampsia Positive UDS Insufficient care Seizure during RCS Anemia History of History of suicide attempt 04/28/2019 @ 1615 Post op via RCS at 36 6/7 weeks gestation G7 now P5 Preeclampsia Positive UDS Insufficient care Seizure during RCS Anemia History of History of suicide attempt Depression Noncompliance RN called provider to the ICU patient was threatening to leave the facility- infant is currently also being transferred to a higher level of care. Provider educated patient about safety-she is recent postop, was extubated less than three hours ago, had a recent seizure, is at risk for another, her medications are larger and have side effects. Patient still being risky on leaving. After consulting ER physician on 72 hours hold-was decided patient was at risk for trying to leave AMA, and do to safety risk from history of attempted suicide, history of seizure, less than 24 hour post op, decision was made to have patient placed on a 72 hour hold for her safety. Did also notify Dr. Oviedo of the plan and he agreed. Patient notified and given rights. Patient is allowed to have cell phone and call button since there are video monitors at nurses station. Will continue to follow patient closely. Greater than 60 minutes spent on patient care, patient education, and collaboration of care. 04/28/2019 @ 4305 Was called again to patient room in ICU due to her requesting that provider come speak to her boyfriend/father of child that was born. Patient wanted provider to explain what all happened to the boyfriend. Boyfriend did state to provider that the patient had used methamphetamines within the last two days. He also stated that he did not know if he would be able to go to [place] to see baby during this time. He also states that they do not have custody of any other children. He was cooperative and did visit with patient after visiting with provider. RN was in room supervising during conversations. Will continue to follow 20 minutes spent on patient care-Patient education and collaboration of care. 04/29/2019 @ 0730 Post op day one via RCS at 36 6/7 weeks gestation G7 now P5 with complications Preeclampsia Positive UDS History of drug abuse Insufficient care Seizure during RCS Anemia History of History of suicide attempt Depression Noncompliance Fundus firm and bleeding decreasing Hgb-8.0, platelet-248, LDH-226 Clark draining clear yellow urine Intake and output normal Lung sounds clear DTRs 1-2+ can be sluggish when pushing pain medication [employer]PER[employer] often Magnesium running IV via protocol-magnesium level remains stable in Therapeutic range Still needs rest of metronidazole doses Patient is currently being cooperative Declines treatment for drug abuse at this time Would like started on medication for depression States she does not remember most of yesterday, delivery or States she does not have support or a vehicle for transportation 04/29/2019 @ 1915 Patient currently more stable Dc'd Magnesium IV at this time BPs have been better Output good Patient being more compliant Remains on a 72 hr hold Will continue to monitor 04/30/2019 @ 0800 Post op day two via RCS at 36 6/7 weeks gestation G7 now P5 with complications Preeclampsia Positive UDS History of drug abuse Insufficient care Seizure during RCS Anemia History of History of suicide attempt Depression Noncompliance Fundus firm and bleeding decreasing Hgb-7.3, platelet-253, LDH-175 BPs have been more stable 120-140's/70-80's Clark draining clear yellow urine Intake and output normal Lung sounds clear DTRs 2+ Magnesium complete Antibiotics for vaginal infections completed Patient is currently being cooperative Declines treatment for drug abuse again today [facility]ant remains in [facility] she does not have support or a vehicle for transportation Supplier Quality Manager are involved - Plan Plan:: 04/28/2019 33 yo came in at 36 6/7 gestational weeks complaining of contractions. She had had insufficient care with a history of incarceration, drug abuse, and attempted suicide. Today she has signifcantly elevated BP and a protein/creatinine ratio of 284. She also has regular contractions that would not go away with interventions. Decision was made to proceed with repeat c- section due to labor and preeclampsia. SVE-1-2/70/-1 FHTs category one Ultrasound-BPP 8/8, placenta grade 2-3 BP currently 140's over 90's Hyperreflexic Positive UDS Hgb-8.5 Wet prep-bacterial vaginosis, trich, positive WBC Plan- Contacted Dr. Oviedo and will proceed to a RCS Will treat patients elevated BP Will treat BV, Trich, yeast after delivery Will do social service consult Plan- Patient will remain in ICU To have magnesium 2 gram every hour then will titrate in 24 hours To be on seizure precautions To have vital signs per ICU protocol To have regular care To have IV antibiotics see orders To have NS IV titrated with Magnesium therapy To have CMP, CBC, LDH, and magnesium drawn at 1700 today Strict intake and Output every four hours BP to remain systolic 140-160/ diastolic 90-110 if out of this range to notify provider 04/29/2019 Patient will remain in ICU To be on seizure precautions To have vital signs per ICU protocol To have regular care To have IV antibiotics see orders To have NS IV titrated with Magnesium therapy, will titrate to 0.5gram/hour today To have LDH, and magnesium drawn at 1700 today Strict intake and Output every four hours BP to remain systolic 140-160/ diastolic 90-110 if out of this range to notify provider Will start oral antihypertensives today Will start oral antifungals today Social service consult to be done on infant Patient to remain on 72 hour hold Greater than 45 minutes spent on patient care-more than 50% of time spent on patient care, patient education, and collaboration of care. 04/29/2019 Continue to monitor BPs closely Continue 72 hour hold Dc'd magnesium IV and magnesium labs Will draw CMP, CBC, LDH in am 04/30/2019 Patient will remain in ICU To be on seizure precautions To have vital signs per ICU protocol To have regular care Can Saline lock one IV and can dc the third IV Continue I & O Continue oral antihypertensives today Will start oral antidepressant today Social service consult to be done on infant Patient to remain on 72 hour hold
[2019-04-30] MEDS: amLODIPine 5 MG Tab PO SCH (08:26)
[2019-04-30] MEDS: Fluconazole 150 MG Tab PO SCH (08:26)
[2019-04-30] MEDS: Bisacodyl 5 MG Tab PO SCH ×2 (08:27→21:54)
[2019-04-30] MEDS: Sertraline 50 MG Tab PO SCH (08:27)
[2019-04-30] MEDS: Magnesium Hydroxide 400 MG/5 ML Susp 30 ML Cup PO SCH ×2 (08:29→21:54)
[2019-04-30] MEDS: Cyanocobalamin (Vitamin B12) 1,000 MCG/ML SDV IM SCH (09:11)
[2019-04-30] MEDS: Ibuprofen 600 MG Tab PO SCH ×3 (11:28→22:00)
[2019-04-30] MEDS: Acetaminophen/HYDROcodone 325-5 MG Tab PO PRN ×3 (12:31→21:59)
--- NOTE | 2019-04-30 12:44 | PN ---
DATE OF SERVICE: 04/29/2019 The patient is status post repeat section yesterday and intraoperatively she had a seizure likely related to recent methamphetamine use, and was intubated. She was extubated at the end of the case and has done well respiratory lau. She did have metabolic acidosis to some degree with a bicarbonate of 18 on the initial blood gases and slightly below normal pH of 7.33. Likely, blood gases improved and then slowly her CO2 was 22, so metabolic acidosis resolved and clinically she looks good. Today, her hemoglobin is 8.0 down from 8.5 preoperatively, so no major bleeding problems had been noted. Otherwise, we will give her a regular diet today Clark catheter. Her B12 level is low and we will check ferritin, I suspect that will be low as well in which case we will give her some IV iron today and tomorrow. She is on a 72-hour hold per Leslie Bradley CNM due to the drug use and overall social situation. The baby was transferred through [facility] although looked good and the transfer was done as a precaution and the baby's methamphetamine is negative. Jt Oviedo MD Job #: [id number]
--- NOTE | 2019-04-30 12:47 | PN ---
DATE OF SERVICE: 04/30/2019 The patient has been afebrile with stable vital signs. No major problems noted. Oral intake has been satisfactory. Urine output has been good. Labs show hemoglobin down a little bit at 7.3. She did have low ferritin and received an iron infusion yesterday and she had another today along with vitamin B12 shot and we will switch over to oral pain medication, give her some bowel stimulation, and she may be ready for discharge home tomorrow. The 72-hour hold may come off, in which case she might sign out AMA at that point. Jt Oviedo MD /[id number]
[2019-05-01] MEDS: Ibuprofen 600 MG Tab PO SCH (05:48)
[2019-05-01] MEDS: Acetaminophen/HYDROcodone 325-5 MG Tab PO PRN (05:48)
[2019-05-01] MEDS: cefOXitin 2 GM in Sodium Chloride 0.9% 50 ML IV SCH (05:49)
--- NOTE | 2019-05-01 08:12 | PCM.PNPP ---
- General Info Date of Service: 05/01/19 (PPD 3 D/C) Admission Dx/Problem (Free Text): Patient Status Order with Admit Dx/Problem 04/28/19 11:07 Patient Status [ADT] Routine Admission Diagnosis/Problem Admission Diagnosis/Problem Functional Status: Reports: Pain Controlled, Tolerating Diet, Ambulating - Review of Systems General: Reports: No Symptoms HEENT: Reports: No Symptoms Pulmonary: Reports: Cough Cardiovascular: Reports: No Symptoms Gastrointestinal: Reports: No Symptoms Genitourinary: Reports: No Symptoms Musculoskeletal: Reports: No Symptoms Skin: Reports: No Symptoms Neurological: Reports: No Symptoms Psychiatric: Reports: Mood Lability - General Info Date of Service: 05/01/19 - Patient Data Vital Signs - Most Recent: Last Vital Signs Temp 97.0 F 05/01/19 03:59 Pulse 60 05/01/19 05:00 Resp 15 05/01/19 05:00 BP 128/76 05/01/19 05:00 Pulse Ox 97 05/01/19 05:00 Weight - Most Recent: 169 lb 3.2 oz I&O - Last 24 Hours: Intake & Output 04/30/19 05/01/19 05/01/19 22:59 06:59 14:59 Intake Total 2115 850 Output Total 1600 Balance 515 850 Micro Results - Last 24 Hours: Microbiology 04/28/19 10:10 Group B Streptococcus Culture - Final Vaginal/Rectal NEGATIVE STREP GROUP B Med Orders - Current: Current Medications Hydrocodone Bitart/Acetaminophen (Greene 325-5 Mg) 1 - 2 tab PO Q4H PRN PRN Reason: Pain Last Admin: 05/01/19 05:48 Dose: 1 tab Amlodipine Besylate (Norvasc) 5 mg PO DAILY [facility] Last Admin: 04/30/19 08:26 Dose: 5 mg Bisacodyl (Dulcolax) 10 mg PO BID [facility] Last Admin: 04/30/19 21:54 Dose: 10 mg Fluconazole (Diflucan) 150 mg PO DAILY [facility] Stop: 05/01/19 09:00 Last Admin: 04/30/19 08:26 Dose: 150 mg Hydroxyzine HCl (Vistaril) 100 mg IM Q4H PRN PRN Reason: PAIN Cefoxitin Sodium 2 gm/ Sodium (Chloride) 50 mls @ 100 mls/hr IV Q6H [facility] Last Admin: 05/01/19 05:49 Dose: 100 mls/hr Ibuprofen (Motrin) 600 mg PO Q6H [facility] Last Admin: 05/01/19 05:48 Dose: 600 mg Labetalol HCl (Normodyne) 5 - 10 mg IV Q1H PRN PRN Reason: FOR SBP >/= 160 OR DBP > 95 Lorazepam (Ativan) 1 mg IVPUSH Q2H PRN PRN Reason: Anxiety Magnesium Hydroxide (Milk Of Magnesia) 30 ml PO BID [facility] Last Admin: 04/30/19 21:54 Dose: 30 ml Ondansetron HCl (Zofran) 4 mg IVPUSH Q4H PRN PRN Reason: Nausea Sertraline HCl (Zoloft) 50 mg PO DAILY [facility] Last Admin: 04/30/19 08:27 Dose: 50 mg Sodium Chloride (Saline Flush) 10 ml FLUSH ASDIRECTED PRN PRN Reason: Keep Vein Open Discontinued Medications Acetaminophen (Tylenol) 650 mg PO Q6H [facility] Last Admin: 04/30/19 08:06 Dose: 650 mg Calcium Gluconate (Calcium Gluconate) 1 gm IVPUSH ONETIME PRN PRN Reason: MAGNESIUM TOXICITY Cefoxitin Sodium (Mefoxin) Confirm Administered Dose 1 gm .ROUTE .STK-MED ONE Stop: 04/28/19 11:08 Last Admin: 04/28/19 12:55 Dose: 1 gm Cefoxitin Sodium (Mefoxin) Confirm Administered Dose 2 gm .ROUTE .STK-MED ONE Stop: 04/28/19 12:11 Cyanocobalamin (Vitamin B12) 1,000 mcg IM DAILY [facility] Stop: 04/30/19 09:01 Last Admin: 04/30/19 09:11 Dose: 1,000 mcg Ephedrine Sulfate (Ephedrine Sulfate) Confirm Administered Dose 50 mg .ROUTE .STK-MED ONE Stop: 04/28/19 12:16 Fentanyl (Sublimaze) Confirm Administered Dose 250 mcg .ROUTE .STK-MED ONE Stop: 04/28/19 13:35 Hydromorphone HCl (Dilaudid Frozen Food Department Manager 15 Mg In Ns 30 Ml) 0 mg IV ASDIRECTED PRN; Protocol PRN Reason: Pain Last Admin: 04/29/19 16:35 Dose: 15 mg Hydromorphone HCl (Dilaudid) 2 - 4 mg PO Q4H PRN PRN Reason: 2mg - MODERATE; 4mg - SEVERE Last Admin: 04/30/19 08:03 Dose: 4 mg Lactated Ringer's (Ringers, Lactated) 1,000 mls @ 999 mls/hr IV BOLUS ONE Stop: 04/28/19 09:16 Last Admin: 04/28/19 08:27 Dose: 999 mls/hr Lactated Ringer's (Ringers, Lactated) 1,000 mls @ 100 mls/hr IV ASDIRECTED [facility] Last Admin: 04/28/19 09:30 Dose: 100 mls/hr Lactated Ringer's (Ringers, Lactated) Confirm Administered Dose 1,000 mls @ as directed .ROUTE .STK-MED ONE Stop: 04/28/19 12:12 Ceftriaxone Sodium 2 gm/ (Sodium Chloride) 50 mls @ 100 mls/hr IV ONETIME ONE Stop: 04/28/19 14:59 Last Admin: 04/28/19 14:25 Dose: 100 mls/hr Metronidazole 500 mg/ Premix 100 mls @ 100 mls/hr IV Q8H [facility] Stop: 04/29/19 16:29 Last Admin: 04/29/19 15:37 Dose: 100 mls/hr Magnesium Sulfate (Magnesium Sulfate In Water Premix) 40 gm in 1,000 mls @ 0 mls/hr IV ASDIRECTED [facility] Stop: 04/29/19 14:30 Last Infusion: 04/29/19 14:03 Dose: 0 mls/hr Azithromycin 1,000 mg/ Sodium (Chloride) 500 mls @ 250 mls/hr IV ONETIME ONE Stop: 04/28/19 18:29 Last Admin: 04/28/19 16:57 Dose: 250 mls/hr Oxytocin/Sodium Chloride (Pitocin In Ns 20 Units/1,000 Ml) 20 unit in 1,000 mls @ 100 mls/hr IV TITRATE [facility] Stop: 04/29/19 00:59 Last Admin: 04/28/19 15:03 Dose: 100 mls/hr Sodium Chloride (Normal Saline) 1,000 mls @ 100 mls/hr IV ASDIRECTED [facility] Sodium Chloride (Normal Saline) 1,000 mls @ 75 mls/hr IV ASDIRECTED [facility] Stop: 04/30/19 14:00 Multivitamins/Minerals 10 ml/Chromium/Copper/Manganese/Seleni/Zn 1 ml/ Thiamine HCl 100 mg/ Sodium Chloride 1,012 mls @ 75 mls/hr IV Q13H [facility] Stop: 04/30/19 10:59 Last Admin: 04/29/19 21:55 Dose: 75 mls/hr Ferric Sodium Gluconate Complex 250 mg/ Sodium Chloride 120 mls @ 60 mls/hr IV Q24H [facility] Stop: 04/29/19 18:00 Last Admin: 04/29/19 08:58 Dose: 60 mls/hr Iron Sucrose 500 mg/ Sodium (Chloride) 275 mls @ 68.75 mls/hr IV ONETIME ONE Stop: 04/30/19 11:59 Last Admin: 04/30/19 07:40 Dose: 68.75 mls/hr Labetalol HCl (Normodyne) Confirm Administered Dose 20 mg .ROUTE .STK-MED ONE Stop: 04/28/19 12:41 Midazolam HCl (Versed 1 Mg/Ml) Confirm Administered Dose 2 mg .ROUTE .STK-MED ONE Stop: 04/28/19 12:23 Oxytocin (Pitocin) Confirm Administered Dose 10 unit .ROUTE .STK-MED ONE Stop: 04/28/19 11:08 Last Admin: 04/28/19 12:25 Dose: 10 unit Oxytocin (Pitocin) Confirm Administered Dose 20 unit .ROUTE .STK-MED ONE Stop: 04/28/19 12:11 Propofol (Diprivan 20 Ml) Confirm Administered Dose 200 mg .ROUTE .STK-MED ONE Stop: 04/28/19 12:34 Rocuronium [place] (Zemuron) Confirm Administered Dose 50 mg .ROUTE .STK-MED ONE Stop: 04/28/19 12:31 Sugammadex Sodium (Bridion) Confirm Administered Dose 200 mg .ROUTE .STK-MED ONE Stop: 04/28/19 12:50 - Infant Interaction Infant Disposition, : transfered Infant Interaction: Other (see below) - Recovery Exam Fundal Tone: Firm Fundal Level: 1 Fingerbreadths Below Umbilicus Fundal Placement: Midline Lochia Amount: Small Lochia Color: Rubra/Red Perineum Description: Intact, Minimal Bruising/Swelling Episiotomy/Laceration: None Bladder Status: Voiding Urinary Elimination: Voided - Exam General: Alert, Oriented HEENT: Pupils Equal Neck: Supple Lungs: Normal Respiratory Effort Cardiovascular: Regular Rate, Regular Rhythm GI/Abdominal Exam: Soft, Tender Extremities: Normal Inspection, Normal Capillary Refill Skin: Warm Wound/Incisions: Healing Well Neurological: No New Focal Deficit Psy/Mental Status: Alert, Normal Affect, Other (sad about baby) - Problem List & Annotations (1) Drug use affecting in third trimester SNOMED Code(s): 75856985, 36137845, 397796596 Code(s): O99.323 - DRUG USE COMPLICATING , THIRD TRIMESTER Status : Acute Priority: High Current Visit: Yes (2) labor in third trimester SNOMED Code(s): 3765498 Code(s): O60.03 - LABOR WITHOUT DELIVERY, THIRD TRIMESTER Status: Acute Priority: High Current Visit: Yes Qualifiers: Fetus number: single or unspecified fetus (3) S/P repeat low transverse SNOMED Code(s): 550030023, 96303625, 942431590, 398677596, 941238444 Code(s): Z98.891 - HISTORY OF UTERINE SCAR FROM PREVIOUS SURGERY Status: Acute Current Visit: Yes (4) Preeclampsia SNOMED Code(s): 467515991 Code(s): O14.90 - UNSPECIFIED PRE-ECLAMPSIA, UNSPECIFIED TRIMESTER Status: Acute Current Visit: Yes (5) Noncompliance SNOMED Code(s): 0051236 Code(s): Z91.19 - PATIENT'S NONCOMPLIANCE W OTH MEDICAL TREATMENT AND REGIMEN Status: Acute Current Visit: Yes (6) Depression SNOMED Code(s): 92407251 Code(s): F32.9 - MAJOR DEPRESSIVE DISORDER, SINGLE EPISODE, UNSPECIFIED Status: Acute Current Visit: Yes Qualifiers: Depression Type: major depressive disorder Major depression recurrence: recurrent Active/Remission status: remission status unspecified Qualified Code(s): F33.9 - Major depressive disorder, recurrent, unspecified (7) High risk due to maternal drug abuse in third trimester SNOMED Code(s): 484133433, 672314621 Code(s): O99.323 - DRUG USE COMPLICATING , THIRD TRIMESTER; F19.10 - OTHER PSYCHOACTIVE SUBSTANCE ABUSE, UNCOMPLICATED Status: Acute Current Visit: Yes (8) Tobacco user SNOMED Code(s): 602242207 Code(s): Z72.0 - TOBACCO USE Status: Chronic Priority: Medium Current Visit: No - Problem List Review Problem List Initiated/Reviewed/Updated: Yes - Assessment Assessment:: 04/28/2019 Post op via RCS at 36 6/7 weeks gestation G7 now P5 Preeclampsia Positive UDS Insufficient care Seizure during RCS Anemia History of History of suicide attempt 04/28/2019 @ 1615 Post op via RCS at 36 6/7 weeks gestation G7 now P5 Preeclampsia Positive UDS Insufficient care Seizure during RCS Anemia History of History of suicide attempt Depression Noncompliance RN called provider to the ICU patient was threatening to leave the facility- is currently also being transferred to a higher level of care. Provider educated patient about safety-she is recent postop, was extubated less than three hours ago, had a recent seizure, is at risk for another, her medications are larger and have side effects. Patient still being risky on leaving. After consulting ER physician on 72 hours hold-was decided patient was at risk for trying to leave AMA, and do to safety risk from history of attempted suicide, history of seizure, less than 24 hour post op, decision was made to have patient placed on a 72 hour hold for her safety. Did also notify Dr. Oviedo of the plan and he agreed. Patient notified and given rights. Patient is allowed to have cell phone and call button since there are video monitors at nurses station. Will continue to follow patient closely. Greater than 60 minutes spent on patient care, patient education, and collaboration of care. 04/28/2019 @ 4365 Was called again to patient room in ICU due to her requesting that provider come speak to her boyfriend/father of child that was born. Patient wanted provider to explain what all happened to the boyfriend. Boyfriend did state to provider that the patient had used methamphetamines within the last two days. He also stated that he did not know if he would be able to go to [place] to see baby during this time. He also states that they do not have custody of any other children. He was cooperative and did visit with patient after visiting with provider. RN was in room supervising during conversations. Will continue to follow 20 minutes spent on patient care-Patient education and collaboration of care. 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 Magnesium running IV via protocol-magnesium level remains stable in Therapeutic range Still needs rest of metronidazole doses Patient is currently being cooperative Declines treatment for drug abuse at this time Would like started on medication for depression States she does not remember most of yesterday, delivery or infant States she does not have support or a vehicle for transportation 04/29/2019 @ 1915 Patient currently more stable Dc'd Magnesium IV at this time BPs have been better Output good Patient being more compliant Remains on a 72 hr hold Will continue to monitor 04/30/2019 @ 0800 Post op day two via RCS at 36 6/7 weeks gestation G7 now P5 with complications Preeclampsia Positive UDS History of drug abuse Insufficient care Seizure during RCS Anemia History of History of suicide attempt Depression Noncompliance Fundus firm and bleeding decreasing Hgb-7.3, platelet-253, LDH-175 BPs have been more stable 120-140's/70-80's Clark draining clear yellow urine Intake and output normal Lung sounds clear DTRs 2+ Magnesium complete Antibiotics for vaginal infections completed Patient is currently being cooperative Declines treatment for drug abuse again today remains in [place] States she does not have support or a vehicle for transportation Milieu Coordinator are involved 05/01/19 Is stable and wants to go home. Is a risk for seizure activity for 6 weeks. States he would look after her. Lives in a trailer with her boyfriend. Her father has her other children. Discussion on control, She is willing for me to place a Nexplanon. Called placed to administration about getting that accomplished before she leaves the facility. - Plan Plan:: 04/28/2019 33 yo came in at 36 6/7 gestational weeks complaining of contractions. She had had insufficient care with a history of incarceration, drug abuse, and attempted suicide. Today she has signifcantly elevated BP and a protein/creatinine ratio of 284. She also has regular contractions that would not go away with interventions. Decision was made to proceed with repeat c- section due to labor and preeclampsia. SVE-1-2/70/-1 FHTs category one Ultrasound-BPP 8/8, placenta grade 2-3 BP currently 140's over 90's Hyperreflexic Positive UDS Hgb-8.5 Wet prep-bacterial vaginosis, trich, positive WBC Plan- Contacted Dr. Oviedo and will proceed to a RCS Will treat patients elevated BP Will treat BV, Trich, yeast after delivery Will do social service consult Plan- Patient will remain in ICU To have magnesium 2 gram every hour then will titrate in 24 hours To be on seizure precautions To have vital signs per ICU protocol To have regular care To have IV antibiotics see orders To have NS IV titrated with Magnesium therapy To have CMP, CBC, LDH, and magnesium drawn at 1700 today Strict intake and Output every four hours BP to remain systolic 140-160/ diastolic 90-110 if out of this range to notify provider 04/29/2019 Patient will remain in ICU To be on seizure precautions To have vital signs per ICU protocol To have regular care To have IV antibiotics see orders To have NS IV titrated with Magnesium therapy, will titrate to 0.5gram/hour today To have LDH, and magnesium drawn at 1700 today Strict intake and Output every four hours BP to remain systolic 140-160/ diastolic 90-110 if out of this range to notify provider Will start oral antihypertensives today Will start oral antifungals today Social service consult to be done on infant Patient to remain on 72 hour hold Greater than 45 minutes spent on patient care-more than 50% of time spent on patient care, patient education, and collaboration of care. 04/29/2019 Continue to monitor BPs closely Continue 72 hour hold Dc'd magnesium IV and magnesium labs Will draw CMP, CBC, LDH in am 04/30/2019 Patient will remain in ICU To be on seizure precautions To have vital signs per ICU protocol To have regular care Can Saline lock one IV and can dc the third IV Continue I & O Continue oral antihypertensives today Will start oral antidepressant today Social service consult to be done on Patient to remain on 72 hour hold 05/01/19 Can release 72 hour hold today Should go home on antidepressant and blood pressure medication Will place a Nexplanon for control Needs a 4 week blood pressure check and follow up on depression.
[2019-05-01 08:55] VITALS: BP 121/83; PULSE 63
[2019-05-01] MEDS: Fluconazole 150 MG Tab PO SCH (09:38)
[2019-05-01] MEDS: amLODIPine 5 MG Tab PO SCH (09:38)
[2019-05-01] MEDS: Magnesium Hydroxide 400 MG/5 ML Susp 30 ML Cup PO SCH (09:39)
[2019-05-01] MEDS: Sertraline 50 MG Tab PO SCH (09:45)
[2019-05-01] MEDS: Bisacodyl 5 MG Tab PO SCH (09:45)
--- NOTE | 2019-05-01 15:12 | DISCH ---
ADMISSION DIAGNOSES: A 36-week intrauterine , urine screen positive for methamphetamine drug use affecting in third trimester, labor in third trimester, insufficient care in third trimester, history of delivery, status post repeat low-transverse section, history of suicide attempt, preeclampsia, protein in urine, and tobacco user. DISCHARGE DIAGNOSES: section, date 04/28/2019, with intraoperative seizure. HOSPITAL COURSE: Sanam Wilson is a 33-year-old female, who presented to the hospital with labor. She had a repeat , but she had a seizure intraoperatively, likely related to recent methamphetamine use, and she was intubated. She was extubated at the end of the case. She did have metabolic acidosis and hemoglobin was 8. She was admitted to ICU and put on a 72-hour hold due to drug use and overall social situation. On postoperative day #2, ferritin was low. She was started on iron infusion and a B12 shot, changed to oral pain medication. On postoperative day #3, she was able to be discharged to home. Vital signs were stable. Oral intake adequate. Her pain was in control. She had no other questions or concerns. She did have a Nexplanon put in right after discharge from the hospital, at [facility]. PHYSICAL EXAMINATION: GENERAL: Sanam Wilson is a 33-year-old female. VITAL SIGNS: Height 5 feet 2 inches. Weight 169 pounds. BMI is 30. TPR 97.6, 63, 16, and blood pressure 121/83. HEENT: Negative. NECK: Supple. HEART: Regular rate and rhythm. LUNGS: Clear. ABDOMEN: Soft and nontender. incision looks good. Steri-Strips are on. EXTREMITIES: Without peripheral edema. DISPOSITION: Discharged to home. CONDITION AT DISCHARGE: Stable and improving. FOLLOWUP: 1. Followup appointment on 05/10/2019, at 1 p.m., with Yenifer Huff PA-C, [facility]. 2. Followup with Yari Reese on 05/29/2019. DISCHARGE MEDICATIONS: Home Medications: 1. Winlock 5/325 mg 1 every 6 hours p.r.n. pain, #28. 2. Amlodipine 5 mg oral daily, #30. 3. Dulcolax 10 mg oral twice daily, #30. 4. Diflucan 150 oral, #7. 5. Ibuprofen 600 mg q.6 hours, #40. 6. Sertraline 50 mg once daily, #30. 7. She is to resume her vitamins. DIET: Regular diet as tolerated. Drink 8 to 10 glasses of water a day. ACTIVITY: No lifting over 10 pounds for 6 weeks. Walk at least 6 times daily. Driving, do not drive for 1 week and while on pain medication. Shower/bathing, may shower. No tub bathing or swimming for 6 weeks. DISCHARGE INSTRUCTIONS: Notify provider if any fever, increased pain, nausea, or vomiting. Keep site clean and dry. Use incentive spirometer 10 times every hour while awake for 1 week.
[2019-05-01 23:07] LABS: T PALLIDUM ANTIBODIES Non Reactive (Non Reactive)
[2019-05-02 10:09] LABS: CHLAMYDIA TRACHOMATIS, NAA Negative (Negative); NEISSERIA GONORRHOEAE, NAA Negative (Negative)
[2019-05-02 14:08] LABS: HBSAG SCREEN Negative (Negative)
--- NOTE | 2019-05-03 11:14 | OR ---
DATE OF PROCEDURE: 04/28/2019 SURGEON: Jt Oviedo MD PREOPERATIVE DIAGNOSIS: Intrauterine , in labor, with history of previous sections. POSTOPERATIVE DIAGNOSES: 1. Intrauterine , in labor, with history of previous sections. 2. Intraoperative seizure likely secondary to methamphetamine use. OPERATIVE PROCEDURE: section. ANESTHESIA: Spinal converted to general. ASSISTANTS: Leslie Bradley CNM, and Curtis Griffith MS3. INDICATIONS FOR PROCEDURE: This is a 33-year-old female, presenting with intrauterine . She has history of previous section. Plan is to proceed with section presently. She does have drug screen positive for methamphetamine and she admits to taking this as late as earlier today. Potential risks of the procedure including bleeding, infection, injury to mother and her baby were all reviewed as well as possible complications related to methamphetamine use to both mother and baby were gone over and the patient wishes to proceed. DETAILS OF PROCEDURE: The patient was taken to the operating room, and after spinal anesthetic was placed, was positioned in supine position with a roll underneath her right hip. Clark catheter was inserted, and the abdomen prepped and draped. Previous Pfannenstiel incision was then reused and carried down through the skin, subcutaneous tissue, and anterior rectus sheath. Subrectus sheath flaps were then raised superiorly and inferiorly, and the midline fascia divided. The peritoneal reflection of the bladder on the uterus was then divided and the bladder reflected downward. A transverse uterine incision was then made and carried through the full-thickness. A viable male was then delivered through the vertex presentation and the cord was clamped and cut. Routine care was given off the field per Leslie Bradley CNM. The placenta and membranes were then delivered while the patient was given IV intrauterine Pitocin and IV cefoxitin. Good uterine contractions were noted and the uterus was then closed with 2 layers of 2-0 Vicryl stitch, that were also used to reapproximate the bladder over the uterine incision. Uterus was then placed back into the peritoneal cavity and the midline fascia was approximated with #2 Vicryl stitch as was the anterior rectus sheath. Subcutaneous tissue was then approximated with some 4-0 Vicryl stitch and the skin with a 4-0 Vicryl subcuticular stitch. Dressing applied. Shortly after delivery of the baby, the patient developed what appeared to be a full blown seizure likely related to methamphetamine use. She was intubated at that point and remainder of the anesthetic care conducted with endotracheal anesthetic onboard. At the conclusion of the procedure, she was able to be extubated and was taken to the recovery room and otherwise in stable condition. Otherwise, there were no evident complications. Jt Oviedo MD /[id number]
== END 2019-05-01 12:15 | disposition home or self-care (01) | DRG 786 ==
LOC: JP.OBCHECK 07:27 → JP.OB 10:44 → OBSVTOIN 12:20 → JP.OB 12:20 → JP.MS 12:25 → JP.ICU 14:22
PROVIDERS: ADMIT Surgery; ATTEND Advanced Practice Midwife
PROC: 10D00Z1 Extraction of Products of Conception, Low, Open Approach (ICD-10-PCS; principal; 2019-04-28)
PROC: 0BH17EZ Insertion of Endotracheal Airway into Trachea, Via Natural or Artificial Opening (ICD-10-PCS; 2019-04-28)
DX: O34.211 Maternal care for low transverse scar from previous cesarean delivery (principal); O60.14X0 Preterm labor third trimester with preterm delivery third trimester, not applicable or unspecified; O99.324 Drug use complicating childbirth; O99.355 Diseases of the nervous system complicating the puerperium; E87.2 Acidosis; O14.94 Unspecified pre-eclampsia, complicating childbirth; R56.9 Unspecified convulsions; O99.285 Endocrine, nutritional and metabolic diseases complicating the puerperium; Z3A.36 36 weeks gestation of pregnancy; Z37.0 Single live birth; O99.334 Smoking (tobacco) complicating childbirth; F17.210 Nicotine dependence, cigarettes, uncomplicated; F15.90 Other stimulant use, unspecified, uncomplicated; Z91.19 Patient's noncompliance with other medical treatment and regimen; O99.02 Anemia complicating childbirth; D64.9 Anemia, unspecified
CPT/HCPCS: 36415; 36600; 59409; 76805; 76818; 80053; 80305-QW; 81001; 82570; 82607; 82728; 82803; 83615; 83735; 84100; 84112; 84156; 84550; 85025; 85027; 86317; 86780; 86803; 86850; 86900; 86901; 86920; 86922; 87081; 87210; 87340; 87449; 87491; 87591; 88307; 99211; A9270-GY; J0456; J0694; J0696; J1170; J1756; J2250; J2590; J2704; J2916; J3010; J3411; J3420; J3475; J3490; J7030; J7040; J7050; J7120

== ENCOUNTER 2019-05-05 02:23 | Emergency (ER) | payer MEDICAID ==
[2019-05-05 02:59] VITALS: BP 149/83; PULSE 99
--- NOTE | 2019-05-05 03:10 | EDM.PDOC ---
ED HPI GENERAL MEDICAL PROBLEM - General Chief Complaint: Skin Complaint Stated Complaint: POSSIBLE INFECTION IN ARM Time Seen by Provider: 05/05/19 03:03 Source of Information: Reports: Patient History Limitations: Reports: No Limitations - History of Present Illness INITIAL COMMENTS - FREE TEXT/NARRATIVE: Patient presents for evaluation of a red irritated segment of the right forearm. Patient was recently hospitalized with a complex series of things including IV drug abuse during , labor with and a seizure occurrence during surgery to deliver the baby. She was discharged Wednesday , 4 days ago on a variety of medications. Her boyfriend noticed the reddened area on her forearm tonight and thought she should be seen. She denies current drug use. She has a recheck appointment for her incision on Wednesday, 08 May. She otherwise has been taking all of her usual medications and has not noticed any other change in health. Onset: Today Location: Reports: Upper Extremity, Right Quality: Reports: Dull Severity: Mild Improves with: Reports: None Worsens with: Reports: None right arm Pain Score (Numeric/FACES): 5 - Related Data Allergies Allergy/AdvReac Type Severity Reaction Status Date / Time No Known Allergies Allergy Verified 05/05/19 03:04 Home Meds: Home Meds Iron,Carbonyl/Vit C/Vit B12/Fa [Iron 100 Plus Tablet] 1 tab PO TID 01/16/19 [ History] Acetaminophen/HYDROcodone [[place] 325-5 MG] 1 tab PO Q6H PRN #28 tablet 05/01/19 [Rx] Bisacodyl [Dulcolax] 10 mg PO BID #30 tablet 05/01/19 [Rx] Fluconazole [Diflucan] 150 mg PO DAILY #7 tablet 05/01/19 [Rx] Ibuprofen [Motrin] 600 mg PO Q6H #40 tablet 05/01/19 [Rx] Sertraline [Zoloft] 50 mg PO DAILY #30 tablet 05/01/19 [Rx] amLODIPine [Norvasc] 5 mg PO DAILY #30 tablet 05/01/19 [Rx] Past Medical History - Past Health History Medical/Surgical History: Denies Medical/Surgical History HEENT History: Reports: None Cardiovascular History: Reports: None Respiratory History: Reports: None Gastrointestinal History: Reports: Cholelithiasis Genitourinary History: Reports: None 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: , 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 Musculoskeletal History: Reports: None Neurological History: Reports: None Psychiatric History: Reports: Anxiety, Depression Endocrine/Metabolic History: Reports: None Hematologic History: Reports: None Immunologic History: Reports: None Oncologic (Cancer) History: Reports: None Dermatologic History: Reports: None - Infectious Disease History Infectious Disease History: Reports: None - Past Surgical History Head Surgeries/Procedures: Reports: None HEENT Surgical History: Reports: None Cardiovascular Surgical History: Reports: None Respiratory Surgical History: Reports: None GI Surgical History: Reports: Cholecystectomy Female Surgical History: Reports: Section Endocrine Surgical History: Reports: None Neurological Surgical History: Reports: None Musculoskeletal Surgical History: Reports: None Oncologic Surgical History: Reports: None Dermatological Surgical History: Reports: None Social & Family History - Family History Family Medical History: Noncontributory - Caffeine Use Caffeine Use: Reports: Soda ED ROS GENERAL - Review of Systems Review Of Systems: Comprehensive ROS is negative, except as noted in HPI. ED EXAM, SKIN/RASH Exam: See Below Exam Limited By: No Limitations General Appearance: Alert, No Apparent Distress Extremities: Arm Pain, Redness (There is a defined segment of superficial vein on the dorsal aspect of the right forearm that is reddened and raised compared to other areas nearby. Minor pain on palpation. No other similar lesions elsewhere on the extremities.) Lymphatic: No Adenopathy Course - Vital Signs Last Recorded V/S: Last Vital Signs Temp 36.6 C 05/05/19 03:01 Pulse 99 05/05/19 03:01 Resp 16 05/05/19 03:01 BP 149/83 H 05/05/19 03:01 Pulse Ox 99 05/05/19 03:01 - Re-Assessments/Exams Free Text/Narrative Re-Assessment/Exam: 05/05/19 04:12 I discussed with her that this appears to be superficial thrombophlebitis. She is already on ibuprofen 2400 mg a day. I recommend using warm moist heat 20 minutes on and off to the irritated area. She should avoid pressure on the area or any other activities which make it feel worse. She has a postop recheck appointment on Wednesday and the arm could be reassessed at that time. Departure - Departure Time of Disposition: 03:25 Disposition: Home, Self-Care 01 Condition: Good Clinical Impression: Phlebitis - Discharge Information *PRESCRIPTION DRUG MONITORING PROGRAM REVIEWED*: Not Applicable *COPY OF PRESCRIPTION DRUG MONITORING REPORT IN PATIENT GABI: Not Applicable Instructions: Phlebitis, [id number] Referrals: PCP,None [Primary Care Provider] - Forms: ED Department Discharge Additional Instructions: Continue current medications. Try to avoid pressure over that part of the arm. Warm moist heat to the area 20 minutes off and on would be helpful. Did not wrap the arm and a heating pad. Keep your surgery recheck appointment this Wednesday, 08 May. Return to ER if feeling worse. Sepsis Event Note - Evaluation Sepsis Screening Result: No Definite Risk - Focused Exam Vital Signs: Vital Signs Temp Pulse Resp BP Pulse Ox 05/05/19 03:01 36.6 C 99 16 149/83 H 99 05/05/19 02:51 36.6 C 99 16 149/83 H 99 Date Exam was Performed: 05/05/19 Time Exam was Performed: 04:09
== END 2019-05-05 03:40 | disposition home or self-care (01) ==
LOC: JP.ED 02:23
DX: O87.0 Superficial thrombophlebitis in the puerperium (principal); O99.345 Other mental disorders complicating the puerperium; F32.9 Major depressive disorder, single episode, unspecified; F41.9 Anxiety disorder, unspecified; Z79.899 Other long term (current) drug therapy
CPT/HCPCS: 99283